=== PATIENT | female | born 1965 | race Caucasian/White ===

== ENCOUNTER 2017-05-29 11:14 | Emergency (ER) | payer MEDICARE, SELFPAY ==
[2017-05-29 11:19] VITALS: BP 141/76; PULSE 73; RESP 16; TEMP 37.1; O2SAT 96; BMI 36.9
[2017-05-29] MEDS: Famotidine 20 MG Tablet 40 MG PO (11:34)
--- NOTE | 2017-05-29 11:36 | ED.DCSUM_ITS ---
- ER Visit Summary Date of Service: 05/29/17 Chief Complaint: Hives History of Present Illness: The patient is a [address] of angioedema requiring intubation ?2 most recent event April 02, 2017. She presents today with hives. She states she has had hives intermittently for 2 years. She has seen a call or contact centre team leader and wallpaperer with no precipitating antigen. She denies any swelling of her lips, tongue or throat. She denies change in her voice or difficulty swallowing or breathing. She has no chest pain, palpitations or difficulty breathing. She denies shortness of breath. She denies swelling of her extremities. She denies nausea, vomiting diarrhea. She has no urologic symptoms. Please read written note. Physical Examination: Vital signs are remarkable for a slight elevation blood pressure 141/76 otherwise unremarkable. She is not hypoxic. Head is atraumatic normocephalic. Pupils are equal round reactive. Extraocular muscles are intact. TMs are pearly white with landmarks noted. Nares patent with no drainage. Posterior pharynx without erythema or exudate. Uvula is midline. There is no dysphonia or dysphasia. Trachea is midline. There is no stridor with auscultation of the neck. Heart is regular without murmur, gallop or rub. S1 and S2 are normal. Lungs are clear to auscultation with good movement of air bilaterally. Abdomen is soft nontender with normal bowel sounds. Patient has generalized hives. Neuro exam is nonfocal. Test Results: No tests were obtained Emergency Department Course and Treatment: Since this is an intermittent problem for 2 years she was treated with Pepcid and prednisone. She has reported allergy to Benadryl and has been told by the wallpaperer not to take Benadryl. Treatment Plan: Plan was to discharge with prescription for Pepcid and prednisone. She believes this made her symptoms worse. There is no evidence on reexamination that her symptoms are worse. Patient states only that helps her hives is to smoke marijuana. She requested a prescription for medical marijuana. She was informed that I do not write for medical marijuana. She then requested a prescription for anxiety medication. I informed her since this is a process and problem that has been going on for 2 years she should follow-up with her doctor. Disposition: Discharged to home in stable condition Impression: Recurrent intermittent hives of unknown etiology This note was generated with Dragon dictation software. It may contain incorrect words, spelling, and punctuation that were not noted in review of the chart prior to signing ED Disposition - Plan for ED Patient: Disposition: Home or Assisted Living Chief Complaint: Rash Instructions: ED Urticaria Referrals: Erika Garcia MD [Primary Care Provider] - 3-5 Days
== END 2017-05-29 13:57 | disposition home or self-care (01) ==
PROVIDERS: Emergency Provider Emergency Medicine; PCP Internal Medicine
DX: L50.8 Other urticaria (principal); I25.10 Atherosclerotic heart disease of native coronary artery without angina pectoris; I25.2 Old myocardial infarction; E66.9 Obesity, unspecified; Z68.36 Body mass index [BMI] 36.0-36.9, adult; F12.980 Cannabis use, unspecified with anxiety disorder; Z72.0 Tobacco use
CPT/HCPCS: 99284

== ENCOUNTER 2017-06-29 20:13 | Emergency (ER) | payer MEDICARE, SELFPAY ==
[2017-06-29 20:15] VITALS: BP 132/83; PULSE 110; RESP 14; TEMP 38; O2SAT 97; BMI 36.9
--- NOTE | 2017-06-29 20:17 | EKG12_ITS ---
Test Reason : CP Blood Pressure : / mmHG Vent. Rate : 111 BPM Atrial Rate : 111 BPM P-R Int : 136 ms QRS Dur : 078 ms QT Int : 328 ms P-R-T Axes : 065 008 071 degrees QTc Int : 446 ms Sinus tachycardia Otherwise normal ECG Confirmed by ARLENE PITT, MARGARETH ([id number]), food editor JOSE MARIE ([id number]) on 07/01/2017 3:42:14 PM Referred By: Confirmed By:MARGARETH JACOBS MD
--- NOTE | 2017-06-29 20:24 | RAD_ITS ---
STUDY: X-RAY CHEST REASON FOR EXAM: Female, 51 years old. CHEST PAIN TECHNIQUE: Single frontal view of the chest. COMPARISON: 04.02.17 FINDINGS: Chronic appearing increased interstitial lung markings. There is no demonstrated pleural abnormality. Enlarged heart size. Normal mediastinum and duncan. Normal visualized pulmonary arteries. There is atherosclerotic calcification of the aortic arch with tortuosity. There are diffuse degenerative changes of the visualized thoracic spine. There is degenerative osteoarthritis of the bilateral shoulders. There is no demonstrated abnormality of the visualized soft tissue structures of the upper abdomen. RAD/Chest 1 View (Portable) IMPRESSION: There are no acute findings. Electronically Signed: Bill Hoang MD at 20:45 EDT , Service support ,
[2017-06-29 20:43] VITALS: O2SAT 100
[2017-06-29 20:45] LABS: Absolute Lymphocyte Count 2.55 X10^3/ul (0.83-4.51); Absolute Neutrophil Count 8.9 X10^3/uL (2.0-7.7); Basophil# 0.02 X10^3/uL; Basophil% 0.2 % (0-1); Eosinophil# 0.23 X10^3/uL; Eosinophils% 1.9 % (0-5); Hematocrit 41.8 % (37-47); Hemoglobin 13.5 g/dl (12.0-15.0); Lymphocyte # 2.55 X10^3/ul (4.0); Lymphocyte % 20.9 % (19-41); Mean Corp Hgb Conc 32.3 g/gl (32-36); Mean Corpuscular Hgb 28.8 pg (27.0-32.0); Mean Corpuscular Volume 89.1 fL (81-99); Mean Platelet Vol. 9.7 fl (6.2-12.0); Monocyte# 0.44 X10^3/uL; Monocyte% 3.6 % (0-10); Neutrophil # 8.89 X10^3/uL (2.7-7.7); Neutrophil % 72.9 % (47-70); Platelet Count 303 K/mm3 (150-450); RBC Distribution Width CV 13.5 % (11.6-14.6); RBC Distribution Width SD 44.2 fl (35.1-43.9); Red Blood Count 4.69 M/mm3 (4.2-5.4); White Blood Count 12.2 K/mm3 (4.4-11.0)
[2017-06-29 20:46] LABS: POSITIVE COUNT NO; POSITIVE DIFFERENTIAL NO; POSITIVE MORPHOLOGY NO
[2017-06-29 21:00] LABS: Bedside Glucose 99 mg/dL (70-110)
[2017-06-29 21:07] LABS: Anion Gap 8 (5-15); BUN 18 mg/dL (7-18); BUN/Creat Ratio 16.2 RATIO (10-20); Calcium,Total 8.8 mg/dL (8.5-10.1); Chloride 107 mmol/L (98-107); Creatinine, Serum 1.11 mg/dL (0.55-1.02); EST Glomerular Filtration Rate 55 mL/min (>60); Est Glom Filt Rate - Afr Amer 66 mL/min (>60); Estimated Creatinine Clearance 52.74 ml/min; Glucose 98 mg/dL (74-106); Sodium Level 139 mmol/L (136-145)
[2017-06-29] MEDS: Ipratropium/Albuterol Sulfate 3 ML AMPUL.NEB INHALATION (21:35)
[2017-06-29 21:36] VITALS: PULSE 90; RESP 18
[2017-06-29] MEDS: Acetaminophen 500 MG Tablet 1000 MG PO (21:49)
[2017-06-29] MEDS: 0.9% Normal Saline 1,000 ML 999 ML IV (21:58)
[2017-06-29 22:15] VITALS: BP 133/84; PULSE 102; RESP 20; O2SAT 98
--- NOTE | 2017-06-29 22:23 | ED.DCSUM_ITS ---
- ER Visit Summary Date of Service: 06/29/17 Chief Complaint: Chest pain History of Present Illness: The patient is a 51 F who presents with chest pain shortness of breath. She states her symptoms began 5 hours ago. She complains of intermittent pinching chest pain in the center of her chest which lasts about 1 second. She denies any nausea vomiting or fevers. She does complain of shortness of breath congestion rhinorrhea and nonproductive cough as well as fatigue. Physical Examination: Initial heart rate 110, temperature 100.4 normal respiratory rate Heart regular rhythm tachycardia Wheezing Abdomen soft Extremities nontender Test Results: EKG shows sinus rhythm at a rate of 111. Laboratory studies notable for white blood cell count 12.2, creatinine 1.11. Troponin negative. Chest x-ray shows no acute process. Emergency Department Course and Treatment: At the time of my reevaluation repeat temperature is 101.0. On repeat vitals are heart rate is significantly improved. She was given a DuoNeb aerosol here with significant improvement of symptoms. On reevaluation she is not hypoxic or tachycardic. She has no focal infiltrate. I do believe she can be treated as an outpatient. She was given prescriptions for prednisone, azithromycin, albuterol inhaler. She is comfortable with this plan and all questions were answered at bedside. Patient discharged. Treatment Plan: [] Disposition: Discharge Impression: Bronchitis This note was generated with [employer] dictation software. It may contain incorrect words, spelling, and punctuation that were not noted in review of the chart prior to signing ED Disposition - Plan for ED Patient: Chief Complaint: Chest Pain Referrals: Care Physician,No Primary [Primary Care Provider] -
--- NOTE | 2017-06-29 22:23 | ED.DEP ---
ED Disposition - Plan for ED Patient: Chief Complaint: Chest Pain Instructions: Acute Bronchitis Prescriptions: Albuterol Inhaler [Ventolin Hfa] 1 - 2 puff INHALATION Q4H PRN PRN #1 inhaler PRN Reason: Wheezing Azithromycin [Zithromax] 250 mg PO DAILY #6 tab Prednisone [Deltasone] 60 mg PO DAILY #15 tab Referrals: Care Physician,No Primary [Primary Care Provider] -
[2017-06-29 22:37] VITALS: BP 133/84; PULSE 95; RESP 18; O2SAT 98
[2017-06-29 23:03] VITALS: BP 133/84; PULSE 98; RESP 18; O2SAT 99
== END 2017-06-29 23:17 | disposition home or self-care (01) ==
LOC: ED 21:20
PROVIDERS: Emergency Provider Emergency Medicine
DX: J40 Bronchitis, not specified as acute or chronic (principal); I25.2 Old myocardial infarction
CPT/HCPCS: 71045; 80048; 82962; 84484; 85025; 93005; 94640; 96360; 99284; J7030; A4216

== ENCOUNTER 2018-03-31 21:57 | Emergency (ER) | payer MEDICARE, SELFPAY ==
[2018-03-31 22:00] VITALS: BP 152/109; PULSE 100; PULSE 108; RESP 17; TEMP 36.7; O2SAT 97; BMI 33.3
[2018-03-31] MEDS: 0.9% Normal Saline 1,000 ML 150 ML IV (23:16)
[2018-03-31] MEDS: MethylPREDNISolone 125 MG/2 ML Vial IV (23:16)
[2018-03-31 23:36] LABS: Absolute Lymphocyte Count 2.69 X10^3/ul (0.83-4.51); Absolute Neutrophil Count 6.4 X10^3/uL (2.0-7.7); Basophil# 0.03 X10^3/uL; Basophil% 0.3 % (0-1); Eosinophil# 0.25 X10^3/uL; Eosinophils% 2.6 % (0-5); Hematocrit 39.2 % (37-47); Hemoglobin 12.7 g/dl (12.0-15.0); Lymphocyte # 2.69 X10^3/ul (4.0); Lymphocyte % 27.5 % (19-41); Mean Corp Hgb Conc 32.4 g/gl (32-36); Mean Corpuscular Hgb 29.6 pg (27.0-32.0); Mean Corpuscular Volume 91.4 fL (81-99); Mean Platelet Vol. 10.4 fl (6.2-12.0); Monocyte# 0.42 X10^3/uL; Monocyte% 4.3 % (0-10); Neutrophil # 6.36 X10^3/uL (2.7-7.7); Neutrophil % 65.1 % (47-70); POSITIVE COUNT NO; POSITIVE DIFFERENTIAL NO; POSITIVE MORPHOLOGY NO; Platelet Count 349 K/mm3 (150-450); RBC Distribution Width CV 13.3 % (11.6-14.6); RBC Distribution Width SD 43.8 fl (35.1-43.9); Red Blood Count 4.29 M/mm3 (4.2-5.4); White Blood Count 9.8 K/mm3 (4.4-11.0)
[2018-03-31 23:45] LABS: Anion Gap 7 (5-15); BUN 13 mg/dL (7-18); BUN/Creat Ratio 8.7 RATIO (10-20); Calcium,Total 8.5 mg/dL (8.5-10.1); Chloride 110 mmol/L (98-107); Creatinine, Serum 1.49 mg/dL (0.55-1.02); EST Glomerular Filtration Rate 39 mL/min (>60); Est Glom Filt Rate - Afr Amer 47 mL/min (>60); Estimated Creatinine Clearance 38.84 ml/min; Glucose 138 mg/dL (74-106); Potassium 3.3 mmol/L (3.5-5.1); Sodium Level 142 mmol/L (136-145)
--- NOTE | 2018-03-31 23:55 | ED.DCSUM_ITS ---
- ER Visit Summary Date of Service: 03/31/18 Chief Complaint: Tongue swelling History of Present Illness: The patient is a 52 F with no primary care physician. Patient has a history of angioedema. She reports that her tongue began swelling approximately 9 hours ago. She reports that it has essentially stayed unchanged throughout the day. She is unsure what caused this. She states that she was cleaning with bleach prior to the onset of this. However, she is done this previously not had this problem. She also reports that she ate turkey and that can and that is 1 of the meats I am not supposed to have. This approximately 3 hours prior to the onset of the swelling. Patient denies any difficulty breathing or chest pain. Patient denies any change in soap, shampoo, laundry detergent, or fabric softener. No new clothing, bedding, carpeting, or pets. No new medications in the past month. Physical Examination: Vitals: Stable. Afebrile. General: Well-nourished and well-developed. Head: Normocephalic atraumatic. HEENT: Mild angioedema of her tongue. She is edentulous. There is no edema of the floor of her mouth. No angioedema of her lips or her pharynx. Neck: Supple, no lymphadenopathy. No JVD. Nontender. Cardiovascular: Regular rate and rhythm. No murmurs. Respiratory: No respiratory distress. Clear to auscultation bilaterally. Abdominal: Soft, nontender, nondistended, normal bowel sounds. No guarding, rebound, or peritoneal signs. Back: Nontender. Extremities: Nontender, no edema. Skin: Normal color, no rash. Neurologic: Alert and oriented ?3. Cranial nerves II through XII are intact. Normal strength and sensation. Psych: Normal affect. Test Results: CBC is normal. Chem-7 is marked potassium 3.3, chloride 110, glucose 138, creatinine 1.49. Emergency Department Course and Treatment: Patient had an IV placed. She reports that she has an allergy to Benadryl. She was given Pepcid and Solu- Medrol IV. She is been observed over the course of 2 hours and reports that her symptoms have improved somewhat. Treatment Plan: Patient feels well and would like to go home. She will be discharged instructions to follow-up with Dr. Yuen in 1-2 days if not i mproving. She will be placed on prednisone and Pepcid at home. Return to the emergency department for any worsening symptoms. Disposition: To home in improved and stable condition. Impression: 1. Angioedema, recurrent. This note was generated with [email or web address] dictation software. It may contain incorrect words, spelling, and punctuation that were not noted in review of the chart prior to signing ED Disposition - Plan for ED Patient: Chief Complaint: Allergic Reaction Instructions: ED Angioedema Prescriptions: predniSONE tablet 60 mg PO DAILY #15 tablet Famotidine [Pepcid] 20 mg PO BID #28 tablet Referrals: Gregory Marin MD [STAFF PHYSICIAN] - 1-2 Days if not improving
[2018-04-01 00:27] VITALS: BP 161/121; PULSE 80; RESP 16; O2SAT 95
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
== END 2018-04-01 00:49 | disposition home or self-care (01) ==
PROVIDERS: Emergency Provider Emergency Medicine
DX: T78.3XXA Angioneurotic edema, initial encounter (principal)
CPT/HCPCS: 80048; 85025; 96361; 96374; 96375; 99285; J7030; A4216; J3490

== ENCOUNTER 2018-05-05 21:19 | Emergency (ER) | payer MEDICARE, SELFPAY ==
[2018-05-05 21:20] VITALS: BP 142/89; PULSE 112; RESP 17; TEMP 36.2; O2SAT 96; BMI 36.8
--- NOTE | 2018-05-05 21:33 | RAD_ITS ---
STUDY: X-RAY - LEFT KNEE REASON FOR EXAM: Female, 52 years old. Pain, fall TECHNIQUE: 4 view(s) of the knee. COMPARISON: None. FINDINGS: Normal visualized distal femur. Normal visualized proximal tibia and fibula. Normal proximal tibiofibular articulation. Minimal spurring at the medial femorotibial compartment. Normal lateral femorotibial compartment. Mild degenerative spurring at the patellofemoral articulation. Mild effusion. The soft tissue structures are unremarkable. RAD/Knee 4 or More Views IMPRESSION: Norm x-ray examination of the knee.ion of the knee. Electronically Signed: Maurisio Smith DO at 22:17 EST Tel [phone], Service support ,
[2018-05-05] MEDS: Acetaminophen 500 MG Tablet 1000 MG PO (21:44)
--- NOTE | 2018-05-05 21:50 | RAD_ITS ---
STUDY: X-RAY - LEFT ANKLE REASON FOR EXAM: Female, 52 years old. Fall, pain TECHNIQUE: 3 view(s) of the ankle. COMPARISON: None. FINDINGS: Normal visualized distal tibia and fibula. Normal medial malleolus. Questionable subtle cortical irregularity involving the tip of the lateral malleolus. Normal tibiotalar articulation and ankle mortise. Normal visualized talus and calcaneus. Plantar calcaneal spurring. The visualized subtalar, talonavicular, calcaneocuboid and tarsal articulations are normal. Mild lateral soft tissue swelling. RAD/Ankle min 3 Views IMPRESSION: Lateral soft tissue swelling of the ankle. Questionable subtle cortical irregularity involving the tip of the lateral malleolus. Electronically Signed: Maurisio Smith DO at 22:52 EST Tel [phone], Service support ,
--- NOTE | 2018-05-05 23:39 | ED.VISSUMM ---
- ER Visit Summary Date of Service: 05/05/18 Chief Complaint: Fall History of Present Illness: The patient is a 52 F who fell earlier today. She slipped on ice and injured her left knee and left ankle. Worse with ambulation. She did not hit her head or neck. She did not lose consciousness. Denies any other injuries or complaints. Physical Examination: Afebrile and vital signs unremarkable. Head and neck are atraumatic. Left knee shows anterior tenderness. Good extension. Good range of motion. No laxity or deformity. Hip unremarkable. Negative logroll. Left ankle shows lateral malleolus swelling and tenderness. Foot nontender. Neurovascular intact distally. Test Results: X-rays of her knee were negative. X-rays of her ankle show a very small cortical irregularity to the tip of the lateral malleolus. Otherwise unremarkable. Emergency Department Course and Treatment: Patient received Tylenol and then Sublimity. Given that she has pain and swelling to her lateral malleolus with a small cortical irregularity, I suspect this is a fracture. I do not believe this has any clinical significance. Patient was advised to rest, ice, elevate. Boot and crutches. She will follow-up with podiatry. She was given a short course of Percocet. Return for any new or worsening issues. Treatment Plan: As above Disposition: Discharge Impression: 1. Left ankle distal fibula fracture 2. Left knee sprain This note was generated with [employer] dictation software. It may contain incorrect words, spelling, and punctuation that were not noted in review of the chart prior to signing ED Disposition - Plan for ED Patient: Chief Complaint: Fall Referrals: Care Physician,No Primary [Primary Care Provider] -
--- NOTE | 2018-05-05 23:43 | ED.DEP ---
ED Disposition - Plan for ED Patient: Chief Complaint: Fall Instructions: ED Fx Ankle Lateral Malleolus Prescriptions: Oxycodone HCl/Acetaminophen [Percocet 5/325] 1 tab PO Q6H PRN PRN 3 Days #12 tab PRN Reason: Pain Referrals: Nicola March DPM [STAFF PHYSICIAN] -
[2018-05-05] MEDS: HYDROcodone Bitartrate/Apap 5/325 Tablet PO (23:54)
[2018-05-05 23:57] VITALS: BP 132/78; PULSE 88; RESP 18; O2SAT 97
--- OUTSIDE RECORDS SUMMARY | 2018-07-10 17:18 | XMS RPT_ITS ---
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 Date:2017-12-13 - [place], [place] [address]Qan: [phone] [id number]: () Name:[address] ()Tel: [phone]: () [phone] 08/11/2017 MICHAEL D [id number] Primary MICHAEL D [place] Insurance:[facility] [place] [facility] [id number] Hospital [address]Rxo: [phone]) Number: Repository [phone] () [id number] Date:[id number] [address]YA: 08/11/2017 Secondary NOT GIVENUNK [place] Insurance:SELF PAY [place] Number: Effective Repository Date:2017-08-11 06/29/2017 MICHAEL D [id number] Primary MICHAEL D [place] Insurance:[facility]: [place] [facility] [id number] Hospital [address]Cwd: [phone] Number: Repository [phone] () [id number] Date:[id number] [address] [address]VI: 06/29/2017 Secondary NOT GIVENUNK [place] Insurance:SELF PAY [place] Number: Effective Repository Date:2017-06-29 05/29/2017 Michael D [id number] Primary Michael D [place] Insurance:[facility] [place]IN [facility] [id number] Hospital [address]Fel: [phone] Number: Repository [phone] () [id number] Date:[id number] [address] [address]DW: 05/29/2017 Secondary NOT GIVENUNK [place] Insurance:SELF PAY [place] Number: Effective Repository Date:2017-05-29
== END 2018-05-05 23:58 | disposition home or self-care (01) ==
LOC: ED 22:09
PROVIDERS: Emergency Provider Emergency Medicine
DX: S82.65XA Nondisplaced fracture of lateral malleolus of left fibula, initial encounter for closed fracture (principal); S83.92XA Sprain of unspecified site of left knee, initial encounter; W00.0XXA Fall on same level due to ice and snow, initial encounter; Y93.9 Activity, unspecified; Y92.9 Unspecified place or not applicable; Z87.891 Personal history of nicotine dependence
CPT/HCPCS: 73564; 73610; 99285

== ENCOUNTER 2018-05-27 18:55 | Emergency (ER) | payer MEDICARE, SELFPAY ==
[2018-05-27 18:57] VITALS: BP 142/82; PULSE 81; RESP 16; TEMP 36.8; O2SAT 97; BMI 37.8
--- NOTE | 2018-05-27 19:24 | EKG12_ITS ---
Test Reason : CP Blood Pressure : / mmHG Vent. Rate : 080 BPM Atrial Rate : 080 BPM P-R Int : 162 ms QRS Dur : 074 ms QT Int : 392 ms P-R-T Axes : 050 -05 010 degrees QTc Int : 452 ms Normal sinus rhythm Normal ECG Confirmed by ARLENE PITT, MARGARETH ([id number]), editorial specialist JOSE MARIE ([id number]) on 05/31/2018 10:40:53 AM Referred By: RADHA Confirmed By:MARGARETH JACOBS MD
--- NOTE | 2018-05-27 19:26 | ED.VISSUMM ---
- ER Visit Summary Date of Service: 05/27/18 Chief Complaint: Chest pain History of Present Illness: The patient is a 52 F 4-day history of persistent midsternal chest pain. No radicular symptoms. Dyspnea. States exertional dyspnea. No cough. No history of RI. Reports that she has history of a weak heart. She was admitted in 2016. She did not follow-up with cardiology. THC history. History of hereditary angioedema. States she did not take any current daily medicines. No current PCP. States post to have a follow with Dr. Early from her admission 2016. No PE risk factors. No family history of MIs young age. Physical Examination: General: Alert and oriented ?3, no acute distress HEENT: Normocephalic, atraumatic. Moist mucosa membranes Neck: supple, nontender. Cardiovascular: Regular rate and rhythm, no murmurs Respiratory: Normal breath sounds, symmetric, no distress Abdomen: Soft, nontender, nondistended Extremities: Nontender, mild lower extremity edema, pulses intact ?4 Neuro: no focal neurological deficits. Test Results: EKG: Sinus rate of 80, no ST or T wave changes. Hemoglobin 12.5. Creatinine 1.06. Troponin less than 0.015. D-dimer 0.62. CTA chest no PE or dissection. Emergency Department Course and Treatment: Patient presents with chest pains constant for 4 days EKG is normal. No aspirin due to her angioedema history and NSAIDs causing this. Troponin returned negative. Symptoms constant for 4 days with a negative troponin less likely cardiac in nature. With pain with deep breath low risk Wells criteria d-dimer obtained elevated subsequent CTA chest obtained negative. SHIRA score 0 heart score is a 2. Discussed with patient will need to follow-up with her PCP for outpatient stress test. All questions were answered. Treatment Plan: [] Disposition: Discharge Impression: Atypical chest pain This note was generated with Cybits dictation software. It may contain incorrect words, spelling, and punctuation that were not noted in review of the chart prior to signing ED Disposition - Plan for ED Patient: Disposition: Home or Assisted Living Diagnosis: Atypical chest pain Instructions: ED Chest Pain Atypical Unkn Cause Referrals: Care Physician,No Primary [Primary Care Provider] - Gokul Yu MD [STAFF PHYSICIAN] - 3-5 Days
[2018-05-27 19:42] LABS: Absolute Lymphocyte Count 3.18 X10^3/ul (0.83-4.51); Absolute Neutrophil Count 7.9 X10^3/uL (2.0-7.7); Basophil# 0.03 X10^3/uL; Basophil% 0.2 % (0-1); Eosinophil# 0.58 X10^3/uL; Eosinophils% 4.8 % (0-5); Hematocrit 39.3 % (37-47); Hemoglobin 12.5 g/dl (12.0-15.0); Lymphocyte # 3.18 X10^3/ul (4.0); Lymphocyte % 26.2 % (19-41); Mean Corp Hgb Conc 31.8 g/gl (32-36); Mean Corpuscular Hgb 29.1 pg (27.0-32.0); Mean Corpuscular Volume 91.4 fL (81-99); Mean Platelet Vol. 10.6 fl (6.2-12.0); Monocyte# 0.38 X10^3/uL; Monocyte% 3.1 % (0-10); Neutrophil # 7.93 X10^3/uL (2.7-7.7); Neutrophil % 65.3 % (47-70); Platelet Count 309 K/mm3 (150-450); RBC Distribution Width CV 13.3 % (11.6-14.6); RBC Distribution Width SD 43.8 fl (35.1-43.9); White Blood Count 12.2 K/mm3 (4.4-11.0)
[2018-05-27 19:46] LABS: POSITIVE COUNT NO; POSITIVE DIFFERENTIAL NO; POSITIVE MORPHOLOGY NO
[2018-05-27 19:59] LABS: International Normalized Ratio 0.9
[2018-05-27 20:00] LABS: Partial Thromboplast Time 30.4 Seconds (24.1-36.2)
[2018-05-27 20:01] LABS: Anion Gap 7 (5-15); BUN 14 mg/dL (7-18); BUN/Creat Ratio 13.2 RATIO (10-20); Chloride 108 mmol/L (98-107); Creatinine, Serum 1.06 mg/dL (0.55-1.02); EST Glomerular Filtration Rate 57 mL/min (>60); Est Glom Filt Rate - Afr Amer 69 mL/min (>60); Glucose 95 mg/dL (74-106); Sodium Level 143 mmol/L (136-145)
[2018-05-27 20:18] LABS: D-Dimer Quantitative (DVT/PE) 0.62 FEU/ug/m (0.27-0.49)
--- NOTE | 2018-05-27 20:19 | ED.RN ---
DR LOPEZ NOTIFIED OF D DIMER RESULTS
--- NOTE | 2018-05-27 20:19 | CT_ITS ---
STUDY: CTA CHEST REASON FOR EXAM: Female, 52 years old. Chest pain, elevated d-dimer. RADIATION DOSAGE (If Supplied By Facility): CTDIvol = ( 16.43 ) mGy, DLP = ( 595.70 ) mGycm TECHNIQUE: The examination was performed with the intravenous administration of 100 ml of Isovue 370 contrast material. Post-processing of the angiographic images was performed, with multiplanar reformation and 3D reconstruction. Individualized dose optimization techniques were used for this CT. COMPARISON: None. FINDINGS: Normal enhancement of the main pulmonary artery and right and left pulmonary arteries. Normal enhancement of the bilateral peripheral pulmonary arteries. There is no demonstrated pulmonary embolism. Normal thoracic aorta and visualized great vessels. There is no demonstrated aortic dissection. Normal heart and pericardium. Normal mediastinum. Normal hilar regions. Normal visualized trachea and bronchi. The lungs are well expanded. Normal pulmonary parenchyma. Normal pleura. Normal chest wall structures. Normal osseous structures. Normal visualized upper abdomen. CT/CTA Chest W/WO Contrast IMPRESSION: No evidence of pulmonary embolism or aortic dissection. No evidence of acute parenchymal process. Electronically Signed: Raffy Bailey DO at 21:09 EST , Service support ,
[2018-05-27] MEDS: Morphine 4 MG/ML Syringe IV (20:59)
[2018-05-27 22:13] VITALS: BP 162/104; PULSE 65; RESP 18; O2SAT 97
== END 2018-05-27 22:15 | disposition home or self-care (01) ==
PROVIDERS: Emergency Provider Emergency Medicine
DX: R07.89 Other chest pain (principal)
CPT/HCPCS: 71275; 80048; 84484; 85025; 85379; 85610; 85730; 93005; 96374; 99284; Q9967; A4216

== ENCOUNTER → 2018-07-15 08:53 | Outpatient (CLI) | payer MEDICARE, SELFPAY ==
[2018-06-10 10:34] VITALS: BMI 37.8
--- NOTE | 2018-07-15 08:56 | ECHOD_ITS ---
Reason For Study: chest pain Procedure This was a 2D Doppler, Color Flow transthoracic echocardiogram. The exam was of adequate technical quality. Exam performed in department. Left Ventricle Normal LV size. Left ventricular systolic function is normal. The estimated ejection fraction is 55 %. No evidence for diastolic dysfunction. No regional wall motion abnormalities noted. Right Ventricle Normal RV size. Normal systolic function. Atria The left atrium is mildly enlarged. Normal right atrium. No doppler evidence for ASD. Mitral Valve There is no mitral annular calcification. Normal mitral valve. Trivial mitral valve insufficiency. Tricuspid Valve Normal tricuspid valve. Trivial tricuspid valve insufficiency. Right ventricular systolic pressure estimated to be 30 mmHg. Aortic Valve Trisinus/trileaflet aortic valve. Normal aortic valve. Pulmonic Valve The pulmonic valve is not well visualized. Great Vessels Normal sized aortic root. Pericardium/Pleural No pericardial effusion. MMode/2D Measurements & Calculations LVIDd: 4.0 cm IVSd: 1.0 cm Ao root diam: 2.8 cm LVIDs: 2.8 cm LVPWd: 1.1 cm RVDd: 3.7 cm FS: 31.7 % LAV(MOD-bp): 62.1 ml LA A4 area: 21.1 cm2 LA dimension(2D): 3.8 cm LAV(MOD-bp) Indexed: 30.0 ml/m2 LAV(MOD-sp2): 57.7 ml LAV(MOD-sp4): 63.0 ml RA A4 area: 15.2 cm2 Time Measurements MV dec time: 0.23 sec Doppler Measurements & Calculations MV E max baldo: 92.7 cm/sec Lat Peak E' Baldo: 9.7 cm/sec Med Peak E' Baldo: 6.8 cm/sec MV A max baldo: 83.1 cm/sec E/E' lat: 9.5 E/E' med: 13.7 MV E/A: 1.1 Ao V2 max: 151.5 cm/sec LV V1 max: 117.9 cm/sec PA V2 max: 121.4 cm/sec Ao max P.2 mmHg LV V1 max P.6 mmHg TR max baldo: 256.4 cm/sec TR max P.5 mmHg Interpretation Summary Left ventricular systolic function is normal. The estimated ejection fraction is 55 %. The left atrium is mildly enlarged. Trivial mitral valve insufficiency. Trivial tricuspid valve insufficiency. Right ventricular systolic pressure estimated to be 30 mmHg. No evidence for diastolic dysfunction. Ordering Physician: Michael Early Referring Physician: NO PCP Performed By: Janette Pemberton, CHIARA, RVT
== END ==
PROVIDERS: Referring Provider Internal Medicine Cardiovascular Disease; Visit Provider Internal Medicine Cardiovascular Disease
DX: R07.9 Chest pain, unspecified (principal)
CPT/HCPCS: 93306

== ENCOUNTER 2018-08-09 22:06 | Emergency (ER) | payer MEDICARE, SELFPAY ==
[2018-06-10 10:34] VITALS: BMI 37.8
[2018-08-09 22:07] VITALS: BP 154/92; PULSE 91; RESP 16; TEMP 36.8; O2SAT 97; BMI 36.6
--- NOTE | 2018-08-09 22:40 | ED.DCSUM_ITS ---
History of Present Illness Chief Complaint: Lower Extremity Injury Informant: Patient Occurred: Weeks - Recent fall, 1 week ago and initial injury fall of last year Mechanism/Context: Injury, Fall Current Severity: Mild Maximum Severity: Severe Worsened by: Movement and weightbearing Relieved by: Nothing Associated Symptoms: - - Difficulty ambulating and moving.. Negative for: Parasthesia, Weakness, Loss of Funtion Narrative: Patient is a middle-aged woman who presents with left knee pain. She injured her left knee last year. She had a fall 1 week ago. Had a twisting mechanism injury and states she landed on her knee. She is on no anticoagulant. She denies paresthesia, anesthesia motors. She has no other complaint. Tetanus Immunization: 5-10 years Prior similar symptoms: Yes Recent Illness/Hospitalization: No - Past Medical History (1) Left ventricular systolic dysfunction Status: Acute (2) Angioedema Status: Acute (3) Hypothyroidism Status: Chronic (4) Obesity (BMI 30-39.9) Status: Chronic (5) Non-STEMI (non-ST elevated myocardial infarction) Status: Acute Past Medical History - Allergies and Home Meds Allergies/Adverse Reactions: Allergies diphenhydramine [From Benadryl] Allergy (Verified 06/10/18 10:19) Unknown NSAIDS (Non-Steroidal Anti-Inflamma Allergy (Verified 06/10/18 10:19) Angioedema Primary Care Physician: Care Physician,No Primary [Primary Care Provider] - Prior records reviewed: Yes Surgical History: - Lives: Alone Smoking Status: Current some day smoker Alcohol: None - Family History Maternal Family History: Family History (Last Reviewed 06/10/18 @ 10:24 by Sherrell Lees) Father CAD (coronary artery disease) Myocardial infarction CVA (cerebral vascular accident) Grandfather CAD (coronary artery disease) History of coronary artery bypass surgery Uncle Myocardial infarction, Onset Age: 40 Uncle Myocardial infarction, Onset Age: 50 Mother CVA (cerebral vascular accident) Sister CVA (cerebral vascular accident) Family History: Reports: Unknown Review of Systems Cardiovascular: Denies: Chest pain, Palpitations, Heart racing Respiratory: Denies: Dyspnea, Sputum, Dyspnea on exertion, Orthopnea, Paroxysmal nocturnal dyspnea Gastrointestinal: Denies: Abdominal pain, Nausea, Vomiting, Diarrhea Musculoskeletal: Reports: Extremity Pain - Left knee pain. Denies: Myalgias, Arthralgias, Neck pain, Back pain, Swelling Skin: Denies: Rash, Wounds Neurological: Denies: Weakness, Parasthesia, Numbness Hematologic: Denies: Easy bruising, Easy bleeding Allergy: Denies: Uticaria, Swelling of the mouth Physical Exam Vital Signs/Narrative: Vital Signs Temp Pulse Resp BP Pulse Ox 08/09/18 22:07 98.2 F 91 16 154/92 H 97 Inital Vital Signs reviewed: Yes - Extremity Exam Left Hip: Negative for: Abrasion, Contusion, Deformity, Edema, Hematoma, Limited ROM, - Left Femur: Negative for: Abrasion, Contusion, Deformity, Edema, Hematoma, Limited ROM, - Left Knee: Limited ROM - Able to extend 170 degrees and flex to 100 degrees. The patella is not ballotable. There is an effusion. There is no laxity with varus valgus stress testing; however, she does report pain. Carlos's test is negative. There is a click and pain laterally, modified Cedric test. There is pain in the popliteal fossa with no fullness or palpable mass.. Negative for: Abrasion, Contusion, Deformity, Edema, Hematoma Left Tib Fib: Negative for: Abrasion, Contusion, Deformity, Edema, Hematoma, Limited ROM, - Left Foot: Negative for: Abrasion, Contusion, Deformity, Edema, Hematoma, Limited ROM, - General: Well nourished, Well developed, Obese, Unkempt Head: Normocephalic, Atraumatic Eyes: Perrl, EOMI. Negative for: Pale conjunctiva, Scleral icterus Cardiovascular: Regular rate, Regular rhythm, No murmurs, Normal S1, Normal S2 Respiratory: No distress, CTA bilaterally, Chest nontender Skin: Normal color, No rash, No Trauma. Negative for: Cyanosis Neurological: Alert, Oriented x3, Cranial nerves II-XII grossly intact, Normal Strength, Normal Sensation. Negative for: Normal Gait Psychological: Normal affect Diagnostic/Tx/Re-eval Chest X-Ray - ED: Read by ED Physician 4 view x-ray of the left knee was obtained which reveals a small effusion. There is no fracture, subluxation or dislocation per my read. - Medical Decision Making With history of recent fall, effusion and positive modified Cedric's test concern for lateral meniscus injury. X-ray was obtained to evaluate for fracture since there is history of direct trauma. He did with opiate analgesia since she has angioedema to Naprosyn. Patient has seen Dr. Mary Polanco in the past for prior injury. Will refer since there is concern for lateral meniscus injury. ED Disposition - Plan for ED Patient: Disposition: Home or Assisted Living Diagnosis: Acute lateral meniscus tear of left knee Instructions: ED Meniscal Injury Knee Poss Prescriptions: Hydrocodone Bitart/Apap 5-325 [Quartzsite 5MG-325MG] 1 tab PO Q6H PRN PRN 3 Days #10 tab PRN Reason: Pain Referrals: Care Physician,No Primary [Primary Care Provider] - Nikki Polanco DO [STAFF PHYSICIAN] - 5-7 Days
--- NOTE | 2018-08-09 22:45 | RAD_ITS ---
STUDY: X-RAY - LEFT KNEE REASON FOR EXAM: Female, 52 years old. Knee pain and swelling. TECHNIQUE: 4 view(s) of the knee. COMPARISON: None. FINDINGS: Normal visualized distal femur. Normal visualized proximal tibia and fibula. Normal proximal tibiofibular articulation. There is no demonstrated fracture. There is [id number] degenerative arthrosis of the medial femorotibial compartment. Normal lateral femorotibial compartment. There is mild degenerative arthrosis of the patellofemoral articulation. There is a soft tissue prominence in the suprapatellar region suggesting a small volume joint effusion. The soft tissue structures are unremarkable. RAD/Knee 4 or More Views IMPRESSION: Degenerative changes. No acute fracture or dislocation. Probable small effusion. Electronically Signed: Gilles Tavarez MD at 23:01 EDT , Service support ,
[2018-08-09] MEDS: HYDROcodone Bitartrate/Apap 5/325 Tablet PO (23:53)
[2018-08-09 23:55] VITALS: BP 148/88; PULSE 73; RESP 16; O2SAT 98
== END 2018-08-09 23:55 | disposition home or self-care (01) ==
PROVIDERS: Emergency Provider Emergency Medicine
DX: S83.282A Other tear of lateral meniscus, current injury, left knee, initial encounter (principal); W19.XXXA Unspecified fall, initial encounter; Y93.9 Activity, unspecified; Y92.9 Unspecified place or not applicable; E66.9 Obesity, unspecified; Z68.36 Body mass index [BMI] 36.0-36.9, adult; F17.200 Nicotine dependence, unspecified, uncomplicated
CPT/HCPCS: 73564; 99284

== ENCOUNTER 2018-08-22 12:07 | Emergency (ER) | payer MEDICARE, SELFPAY ==
[2018-08-22 12:08] VITALS: BP 126/73; PULSE 88; RESP 19; TEMP 36.2; O2SAT 97; BMI 37.0
[2018-08-22] MEDS: Lidocaine/Epi/Tetracaine 50 ML 1 APPLIC TOPICAL (12:30)
--- NOTE | 2018-08-22 12:30 | ED.VISSUMM ---
- ER Visit Summary Date of Service: 08/22/18 Chief Complaint: Mid ~right lower back pain while folding laundry Also abscess or spider bite left lower leg History of Present Illness: The patient is a 52 F no seen past medical or surgical history. Denies any prior back surgery. An hour ago was michelle daniel developed right lateral back pain. No radiation. No numbness or weakness in her legs. No dysuria. No hematuria. No fever. No abdominal pain. No prior back surgery. No recent fall or trauma. Patient also states last several days she has had an abscess or spider bite left lower leg. Also has one on her right lower abdomen and right medial thigh. Physical Examination: Well-appearing middle-aged female. No acute distress. Vital signs stable. Afebrile. She does not look septic or toxic. No distress. H EENT exam unremarkable. Neck nontender. Lungs clear to auscultation bilaterally. Heart regular rhythm no murmur. Abdomen soft nontender normal bowel sounds no peritoneal signs. Remedies moving all 4. Neurovascular intact. Normal 5 out of 5 transformer mechanic strength to the upper extremities. Normal dorsi plantarflexion lower extremities. Negative straight leg raise. Bilaterally. Back her spine is nontender in both the cervical, thoracic lumbar spine. She has mild paraspinal soft tissue tenderness on the right consistent with myofascial strain and spasm. No ecchymosis or bruising. No redness or warmth. No CVA tenderness. Skin she has a very small superficial subcu abscess on her left mid lower leg. This will need to be drained. There is no surrounding cellulitis. No lymphangitic streaking. She also has 2 similar lesions on her right medial thigh and right lower abdomen but these do not need to be drained. There is no fluctuance. No fluid collection. No cellulitis. They both appear to be very superficial but do not need to be drained nor do I see any pus. Neurologic exam is normal. No cauda equina. No saddle anesthesia. Normal motor strength both upper and lower extremities. Test Results: None Emergency Department Course and Treatment: Back pain to be treated with Motrin. Let will be applied to the left lower leg superficial abscess. I will open up with an 11 blade. She will be started on both Bactrim and Keflex for 10 days. I made a small less than 1 cm vertical incision in the left lower leg small superficial abscess was able to drain about a cc of pus. Patient tolerated procedure well. She will be given her first dose of Keflex and Bactrim while in the ER. Treatment Plan: Bactrim twice daily Keflex 4 times daily for 10 days. Warm compresses to the superficial abscesses. Motrin for her back pain. Disposition: Discharge Impression: Back spasm Left lower leg superficial abscess I&D by ER This note was generated with Horsealot dictation software. It may contain incorrect words, spelling, and punctuation that were not noted in review of the chart prior to signing ED Disposition - Plan for ED Patient: Disposition: Home or Assisted Living Instructions: ED Abscess IandD, ED Spasm Back No Trauma Prescriptions: Cephalexin [Keflex] 500 mg PO Q6 10 Days cap Smz/Tmp Ds [Bactrim Ds] 1 tab PO BID #20 tab Referrals: Aurelio Cordova MD [NON-STAFF] - 3-5 Days if not improving Additional Instructions: Left lower leg abscess. Warm compresses to that right thigh right lower abdomen. Take both antibiotics of Keflex and Bactrim for the next 10 days and finished them. Tylenol for your back pain is musculoskeletal. Hot shower, warm bath and massage. Follow-up with your doctor if not improving.
--- NOTE | 2018-08-22 12:34 | ED.DEP ---
ED Disposition - Plan for ED Patient: Disposition: Home or Assisted Living Instructions: ED Abscess IandD, ED Spasm Back No Trauma Prescriptions: Cephalexin [Keflex] 500 mg PO Q6 10 Days cap Smz/Tmp Ds [Bactrim Ds] 1 tab PO BID #20 tab Referrals: Aurelio Cordova MD [NON-STAFF] - 3-5 Days if not improving Additional Instructions: Left lower leg abscess. Warm compresses to that right thigh right lower abdomen. Take both antibiotics of Keflex and Bactrim for the next 10 days and finished them. Tylenol for your back pain is musculoskeletal. Hot shower, warm bath and massage. Follow-up with your doctor if not improving.
[2018-08-22] MEDS: HYDROcodone Bitartrate/Apap 5/325 Tablet PO (12:39)
[2018-08-22] MEDS: Smz/Tmp Ds Tablet 1 TABLET PO (13:06)
[2018-08-22] MEDS: Cephalexin 250 MG Capsule 500 MG PO (13:06)
== END 2018-08-22 13:11 | disposition home or self-care (01) ==
PROVIDERS: Emergency Provider Emergency Medicine
DX: L02.416 Cutaneous abscess of left lower limb (principal); M62.830 Muscle spasm of back
CPT/HCPCS: 10060; 99285

== ENCOUNTER 2018-11-17 19:57 | Emergency (ER) | payer MEDICARE, SELFPAY ==
[2018-11-17 19:58] VITALS: BP 138/76; BP 138/79; PULSE 77; PULSE 79; RESP 18; RESP 20; TEMP 37.1; O2SAT 97; BMI 39.9
--- NOTE | 2018-11-17 20:54 | RAD_ITS ---
STUDY: X-RAY - LEFT KNEE REASON FOR EXAM: Female, 53 years old. Knee pain TECHNIQUE: 4 view(s) of the knee. COMPARISON: 08/09/2018 FINDINGS: There is stable narrowing of the medial joint space compartment with osteophyte formation. There are patellofemoral osteophytes unchanged. There is a stable moderate-sized suprapatellar effusion. There are no acute fractures. RAD/Knee 4 or More Views IMPRESSION: Stable osteoarthrosis of the left knee Stable moderate size suprapatellar effusion No acute fractures Electronically Signed: Sascha Leon, at 21:31 EDT Tel , Service support ,
--- NOTE | 2018-11-17 21:08 | RAD_ITS ---
STUDY: X-RAY - RIGHT KNEE REASON FOR EXAM: Female, 53 years old. Knee pain TECHNIQUE: 4 view(s) of the knee. COMPARISON: None. FINDINGS: There is narrowing of the medial joint space compartment with osteophyte formation. There is mild soft tissue edema. There is likely chondrocalcinosis within the lateral compartment. There is patellofemoral osteoarthrosis. There is patellofemoral joint space narrowing. There are articular and osteochondral defects within the patella and the adjacent femur.. There are no acute fractures. There is a moderate suprapatellar effusion. RAD/Knee 4 or More Views IMPRESSION: Tricompartmental osteoarthrosis most significant within the patellofemoral and medial compartments Soft tissue edema Moderate suprapatellar effusion Electronically Signed: Sascha Leon, at 21:40 EDT Tel , Service support ,
--- NOTE | 2018-11-17 21:43 | ED.DCSUM_ITS ---
- ER Visit Summary Date of Service: 11/17/18 Chief Complaint: Bilateral knee pain History of Present Illness: The patient is a 53 F who presents with bilateral knee pain that began this morning. Patient states she was sitting on a chair when it folded and she fell onto her knees. Patient landed directly onto the anterior aspect of her knees. Patient describes the pain as throbbing. Patient states the pain is worse with bending her knees. Patient denies any paresthesias or weakness. Patient denies any head injury or loss of consciousness. Patient denies any other injuries. Physical Examination: Vital signs are stable. Patient is afebrile. Patient is in no acute distress. Musculoskeletal exam reveals tenderness with mild edema and ecchymosis over the knees bilaterally, worse on the left. There is no bony crepitance or step-off. There is no effusion. Range of motion was limited in all motions of the knees bilaterally secondary to pain. Extensor mechanism is intact bilaterally. There is no deformity noted. Pedal pulses are equal bilateral. There is no calf tenderness noted. Test Results: X-rays of the knees were obtained bilaterally. There is no acute fracture. There are some degenerative changes. These were interpreted by parish aldana and the radiologist. Emergency Department Course and Treatment: Patient was instructed to ice and elevate the knees. Patient was instructed to take Tylenol or ibuprofen as needed for pain. Patient was instructed to follow-up with her primary care physician in 5 to 7 days. Patient understood and was agreeable with plan. All questions were answered. Disposition: Discharge home Impression: Bilateral knee contusions This note was generated with [employer]Spring dictation software. It may contain incorrect words, spelling, and punctuation that were not noted in review of the chart prior to signing ED Disposition - Plan for ED Patient: Disposition: Home or Assisted Living Diagnosis: Contusion of knee, left, Contusion of knee, right Instructions: CONTUSION, Lower Extremity Referrals: Care Physician,No Primary [Primary Care Provider] - Aurelio Cordova MD [NON-STAFF] - 5-7 Days
[2018-11-17 22:51] VITALS: BP 136/60; PULSE 75; RESP 18; O2SAT 98
== END 2018-11-17 22:51 | disposition home or self-care (01) ==
PROVIDERS: Emergency Provider Emergency Medicine
DX: S80.02XA Contusion of left knee, initial encounter (principal); S80.01XA Contusion of right knee, initial encounter; W07.XXXA Fall from chair, initial encounter; Y93.89 Activity, other specified; Y92.9 Unspecified place or not applicable; E66.9 Obesity, unspecified; Z68.39 Body mass index [BMI] 39.0-39.9, adult
CPT/HCPCS: 73564; 99282

== ENCOUNTER 2019-06-13 23:12 | Emergency (ER) | payer MEDICARE, SELFPAY ==
[2019-06-13 23:13] VITALS: PULSE 92; RESP 18; TEMP 37.7; O2SAT 97; BMI 41.5
[2019-06-13 23:20] VITALS: BP 128/109
--- NOTE | 2019-06-13 23:27 | ED.VIS.GEN ---
History of Present Illness Chief Complaint: Edema Informant: Patient Narrative: Patient stated she feels like her tongue has been mildly swollen for the last 2 hours. Nothing that she can think of provoked it. She takes no medications. She has a history of angioedema in the past. Current severity is mild. Denies any rashes elsewhere. No swelling to her lips. Denies any difficulty breathing. She stated she had to be intubated for angioedema many years ago. She stated they have never figured out what provokes this. Able to swallow normally. Able to talk normally. - Past Medical History (1) Abnormal cardiac enzyme level Status: Acute (2) Angioedema Status: Acute (3) Left ventricular systolic dysfunction Status: Acute (4) Non-STEMI (non-ST elevated myocardial infarction) Status: Acute (5) Bradycardia Status: Chronic (6) Hypothyroidism Status: Chronic (7) Obesity (BMI 30-39.9) Status: Chronic Past Medical History - Allergies and Home Meds Allergies/Adverse Reactions: Allergies diphenhydramine [From Benadryl] Allergy (Verified 11/17/18 19:58) Unknown NSAIDS (Non-Steroidal Anti-Inflamma Allergy (Verified 11/17/18 19:58) Angioedema Primary Care Physician: Reese Zamora DO [NON CLINICAL AFFILIATE] - Prior records reviewed: Yes Past Medical History: - - See problem list Surgical History: - - Reviewed Smoking Status: Former smoker Alcohol: None Drugs: None - Family History Maternal Family History: Family History (Last Reviewed 06/10/18 @ 10:24 by Sherrell Lees) Father CAD (coronary artery disease) Myocardial infarction CVA (cerebral vascular accident) Grandfather CAD (coronary artery disease) History of coronary artery bypass surgery Uncle Myocardial infarction, Onset Age: 40 Uncle Myocardial infarction, Onset Age: 50 Mother CVA (cerebral vascular accident) Sister CVA (cerebral vascular accident) Family History: Reports: Unknown Review of Systems General: Denies: Chills, Fever, Sweats Eyes: Denies: Visual changes - bilaterally, Diplopia ENT: Reports: - - see HPI. Denies: Rhinorrhea, Sore throat Cardiovascular: Denies: Chest pain, Palpitations Respiratory: Denies: Dyspnea, Cough, Dyspnea on exertion Gastrointestinal: Denies: Abdominal pain, Nausea, Vomiting, Diarrhea, Melena, Hematochezia Genitourinary: Denies: Dysuria, Hematuria, Frequency Musculoskeletal: Denies: Back pain, Extremity Pain Skin: Denies: Rash, Wounds Neurological: Denies: Headache, Weakness, Numbness Physical Exam Vital Signs/Narrative: Vital Signs Temp Pulse Resp BP Pulse Ox 06/13/19 23:20 128/109 H 06/13/19 23:13 99.8 F H 92 18 97 General: Well nourished, Well developed, No Acute Distress Head: Normocephalic, Atraumatic Eyes: Perrl, EOMI ENT: Moist mucous membranes, No rhinorrhea, - - Lips oropharynx and tongue to me appear normal. I do not appreciate any swelling. Patient is tolerating secretions well. Normal swallow. Neck: Supple, Nontender Cardiovascular: Regular rate, Regular rhythm, No murmurs Respiratory: No distress, CTA bilaterally, Chest nontender Abdomen: Soft, Nontender, Nondistended, Normal bowel sounds Back: Nontender, Normal Inspection Extremities: Nontender, No edema Skin: Normal color, No rash Neurological: Alert, Oriented x3, Cranial nerves II-XII grossly intact, Normal Strength, Normal Sensation Psychological: Normal affect, Normal Mood Diagnostic/Tx/Re-eval - Medical Decision Making Patient has subjective sense of her tongue being swelling. Given Pepcid and Solu-Medrol. Allergic to Benadryl. Observed in the emergency department. On reevaluation the patient remained stable and feels mildly better. Ambulates to the bathroom without difficulty. Tolerating secretions. On reevaluation at 1:19 AM I do not appreciate any tongue swelling. I feel the patient can be discharged. She will be given prednisone and Pepcid for home as she has had this in the past. She will follow-up ED Disposition - Plan for ED Patient: Disposition: Home or Assisted Living Diagnosis: Angioedema Instructions: ED Angioedema Prescriptions: Famotidine [Pepcid] 20 mg PO BID #28 tab Prescription Printed predniSONE tablet 60 mg PO DAILY #15 tab Prescription Printed Referrals: Reese Zamora DO [NON CLINICAL AFFILIATE] -
[2019-06-13] MEDS: MethylPREDNISolone 125 MG/2 ML Vial IV (23:34)
[2019-06-14 00:56] VITALS: BP 123/101
[2019-06-14 01:29] VITALS: BP 123/80; PULSE 86; RESP 18; O2SAT 98
== END 2019-06-14 01:30 | disposition home or self-care (01) ==
PROVIDERS: Emergency Provider Emergency Medicine
DX: T78.3XXA Angioneurotic edema, initial encounter (principal); I25.2 Old myocardial infarction; E66.9 Obesity, unspecified; Z68.41 Body mass index [BMI] 40.0-44.9, adult; Z87.891 Personal history of nicotine dependence
CPT/HCPCS: 96374; 99284; A4216

== ENCOUNTER → 2020-05-29 15:40 | Outpatient (CLI) | payer MEDICARE, MEDICAID, SELFPAY ==
[2020-05-29 16:38] LABS: Absolute Lymphocyte Count 2.97 X10^3/uL (0.83-4.51); Absolute Neutrophil Count 6.1 X10^3/uL (2.0-7.7); Basophil# 0.05 X10^3/uL; Basophil% 0.5 % (0-1); Eosinophil# 0.22 X10^3/uL; Eosinophils% 2.2 % (0-5); Hematocrit 42.1 % (37-47); Lymphocyte # 2.97 X10^3/ul (4.0); Lymphocyte % 30.2 % (19-41); Mean Corp Hgb Conc 30.9 g/dL (32-36); Mean Corpuscular Hgb 28.2 pg (27.0-32.0); Mean Corpuscular Volume 91.3 fL (81-99); Mean Platelet Vol. 10.6 fl (6.2-12.0); Monocyte# 0.46 X10^3/uL; Monocyte% 4.7 % (0-10); NRBC Flagged by Analyzer 0 % (0-5); Neutrophil # 6.08 X10^3/uL (2.7-7.7); Neutrophil % 61.7 % (47-70); Platelet Count 365 K/mm3 (150-450); RBC Distribution Width CV 13.2 % (11.6-14.6); RBC Distribution Width SD 44.5 fl (35.1-43.9); Red Blood Count 4.61 M/mm3 (4.2-5.4); White Blood Count 9.9 K/mm3 (4.4-11.0)
[2020-05-29 17:26] LABS: Anion Gap 4 (5-15); BUN 16 mg/dL (7-18); BUN/Creat Ratio 12.3 RATIO (10-20); Calcium,Total 9.4 mg/dL (8.5-10.1); Chloride 106 mmol/L (98-107); EST Glomerular Filtration Rate 45 mL/min (>60); Est Glom Filt Rate - Afr Amer 54 mL/min (>60); Glucose 82 mg/dL (74-106); Potassium 3.6 mmol/L (3.5-5.1); Sodium Level 141 mmol/L (136-145); Thyroid Stim Hormone (TSH) 1.49 uIU/mL (0.358-3.74)
== END ==
DX: R03.0 Elevated blood-pressure reading, without diagnosis of hypertension (principal); E03.9 Hypothyroidism, unspecified; M25.572 Pain in left ankle and joints of left foot
CPT/HCPCS: 36415; 80048; 84443; 84550; 85025

== ENCOUNTER 2020-08-31 18:42 | Emergency (ER) | payer MEDICARE, MEDICAID, SELFPAY ==
[2020-08-31 18:43] VITALS: BP 159/101; PULSE 83; RESP 18; TEMP 36.6; O2SAT 97; BMI 41.6
[2020-08-31] MEDS: MethylPREDNISolone 125 MG/2 ML Vial IV (18:52)
--- NOTE | 2020-08-31 18:55 | EDS_ITS ---
HPI History of Present Illness Chief Complaint: Edema Informant: patient Narrative Narrative: Patient presents with mild tongue swelling. Started yesterday and maintained throughout the day today. She tells me she has a history of angioedema and has had multiple times where her tongue swells. She takes no daily medications because of this. She has not taken anything home to help with the swelling. She states that she has a familial history of angioedema. She was seen here in July 2019 and had similar symptoms. She denies any trouble speaking. No shortness of breath. She denies any rashes anywhere. [facility] Medical History (Updated 08/31/20 @ 19:[address] Will Dennis MD) Abnormal cardiac enzyme level Angioedema Bradycardia Hypothyroidism Left ventricular systolic dysfunction Marijuana smoker Non-STEMI (non-ST elevated myocardial infarction) Obesity (BMI 30-39.9) Home Medications famotidine 20 mg PO BID #28 tab 06/14/19 [Rx Last Taken Unknown] prednisone 60 mg PO DAILY #15 tab 06/14/19 [Rx Last Taken Unknown] prednisone 60 mg PO DAILY #12 tablet 08/31/20 [Rx Last Taken Unknown] Allergy/AdvReac Type Severity Reaction Status Date / Time diphenhydramine Allergy Unknown Verified 08/31/20 18:45 [From Benadryl] NSAIDS (Non-Steroidal Allergy Angioedema Verified 08/31/20 18:45 Anti-Inflamma Family History Father CAD (coronary artery disease) Myocardial infarction CVA (cerebral vascular accident) Grandfather CAD (coronary artery disease) History of coronary artery bypass surgery Uncle Myocardial infarction, Onset Age: 40 Uncle Myocardial infarction, Onset Age: 50 Mother CVA (cerebral vascular accident) Sister CVA (cerebral vascular accident) Surgical History History of left heart catheterization (~04/03/17) Social History Smoking Status: Never smoker alcohol intake: never substance use type: marijuana ROS ROS ED Constitutional Constitutional ED: Denies chills or fever(s) Eyes Eyes: Denies blurry vision, change in vision, diplopia or loss of vision ENT ENT ED: Reports other Details: Tongue swelling Cardiovascular Cardiovascular: Denies chest pain, palpitations or racing heartbeat Respiratory/Chest Respiratory/Chest: Denies cough, dyspnea, dyspnea on exertion or sputum Gastrointestinal Gastrointestinal: Denies abdominal pain, diarrhea, nausea or vomiting Genitourinary Genitourinary ED: Denies dysuria, hematuria or urinary frequency Musculoskeletal Musculoskeletal: Denies back pain, myalgias or neck pain Integumentary Denies abscess or rash Neurologic Neurologic: Denies headache(s) or weakness Psychiatric Psychiatric: Denies anxiety or depression Endocrine Endocrinology: Denies polydipsia or polyuria Hematologic/Lymphatic Hematologic/Lymphatic: Denies easy bleeding or easy bruising Allergic/Immunologic Allergic/Immunologic ED: Denies urticaria EXAM Physical Exam Const Vital Signs: 08/31/20 18:43 Temperature 97.9 F Temperature Source Temporal Pulse Rate 83 Respiratory Rate 18 Blood Pressure 159/101 H Blood Pressure Mean 120 Pulse Ox 97 Oxygen Delivery Method Room Air Positive well nourished and well developed General Appearance ED: well developed and NAD HEENT Reports normocephalic and head/scalp atraumatic HEENT Narrative: The tongue is mildly swollen. Is not affecting her phonation. Her uvula is midline without swelling. Her face is not swollen. normocephalic and atraumatic; Negative for tenderness Eyes PERRL and EOMs intact bilaterally General Eye ED: Negative for scleral icterus Neck supple and no JVD Chest Wall palpation of chest normal Chest: Negative for tenderness Resp normal respiratory effort and clear to auscultation bilaterally Effort and Inspection: Negative for respiratory distress Cardio regular rate and regular rhythm; Negative for no murmurs GI soft to palpation, non-tender and non-distended Palpation: soft Back/Spine no CVA tenderness and no thoracic nor lumbar tenderness Cervical Spine: Negative for cervical spine tenderness Extremity normal to inspection General Extremety ED: Negative for tenderness Neuro oriented x3, CN's II-XII intact bilaterally and no sensory deficits noted Sensorium / Orientation: awake and alert Motor Exam: strength 5/5 throughout Psych mental status grossly normal Skin no rashes or lesions noted MDM MDM MDM Narrative Medical decision making narrative: She was given Solu-Medrol and Pepcid. Upon reevaluation at 1999 the patient feels much better. Her tongue appears to be improved but it comes to the swelling. At this point I feel the patient be discharged with prednisone to take at home. She will call her PCP for follow-up Discharge Plan Triage Chief Complaint: Edema ED Provider: Will Dennis Dx/Rx/DC Orders Clinical Impression: Angioedema Instructions: ED Angioedema Prescriptions: New prednisone 20 MG tablet 60 mg PO DAILY Qty: 12 RF: 0 No Action prednisone 20 MG tablet 60 mg PO DAILY Qty: 15 RF: 0 famotidine 20 MG tablet 20 mg PO BID Qty: 28 RF: 0 Primary Care Provider: Care Physician,No Primary Referrals: Care Physician,No Primary [Primary Care Provider] - Disposition Disposition: Home, self care
[2020-08-31] MEDS: Famotidine 200 MG/20 ML MDV 20 MG in 0.9% Normal Saline (Pres. free 8 ML 300 MG IV (18:58)
[2020-08-31 20:24] VITALS: BP 162/82; PULSE 82; O2SAT 96
== END 2020-08-31 20:25 | disposition home or self-care (01) ==
PROVIDERS: Emergency Provider Emergency Medicine
DX: T78.3XXA Angioneurotic edema, initial encounter (principal); E03.9 Hypothyroidism, unspecified; F12.90 Cannabis use, unspecified, uncomplicated; I25.2 Old myocardial infarction; Z79.1 Long term (current) use of non-steroidal anti-inflammatories (NSAID); Z79.52 Long term (current) use of systemic steroids
CPT/HCPCS: 96374; 99284; A4216; J3490

== ENCOUNTER 2021-02-25 18:37 | Emergency (ER) | payer MEDICARE, MEDICAID, SELFPAY ==
[2021-02-25 18:38] VITALS: BP 137/95; PULSE 94; RESP 18; TEMP 35.1; O2SAT 96; BMI 33.3
--- NOTE | 2021-02-25 18:41 | RAD_ITS ---
STUDY: X-RAY - LEFT SHOULDER REASON FOR EXAM: Female, 55 years old. PAIN TECHNIQUE: 4 view(s) of the shoulder. COMPARISON: None. FINDINGS: There is mild degenerative arthrosis of the glenohumeral articulation. There is degenerative arthrosis of the acromioclavicular joint without inferior osseous spur formation. Normal acromion. Normal humeral head and visualized proximal humerus. The soft tissue structures are unremarkable. Normal visualized pulmonary apex. RAD/Shoulder min 2 Views IMPRESSION: Degenerative arthrosis Electronically Signed: Michael Marinelli MD at 19:32 EST , Service support ,
[2021-02-25 21:24] VITALS: BP 137/100; PULSE 79; RESP 18; O2SAT 96
--- NOTE | 2021-02-25 22:12 | EX.ED.UPPERE ---
HPI History of Present Illness HPI Narrative: Patient presents with pain in her left shoulder and wrist that has been getting worse over the past couple days. Patient denies any trauma or injury. Patient describes her pain is sharp and shooting. Patient states it is worse with movement. Patient admits to some tingling in her fingers. Patient denies any weakness. Patient does admit to some pain in her neck and the left upper back. Patient denies any chest pain or shortness of breath. Chief Complaint: Upper Extremity Injury Informant: patient Onset/Context/Timing Onset: Yesterday Context: Gradual Onset Timing: Continuous Quality of Pain: Sharp Worsened by: Movement Relieved by: Rest Associated Symptoms Associated Symptoms: Positive for Parasthesia; Negative for Weakness [facility] Medical History (Updated 02/25/21 @ 22:[address] Percy Tay DO) Abnormal cardiac enzyme level Angioedema Bradycardia Hypothyroidism Left ventricular systolic dysfunction Marijuana smoker Non-STEMI (non-ST elevated myocardial infarction) Obesity (BMI 30-39.9) Home Medications hydrocodone-acetaminophen 1 tab PO Q6H PRN PRN 3 Days #10 tablet 02/25/21 [Rx Last Taken Unknown] Allergy/AdvReac Type Severity Reaction Status Date / Time diphenhydramine Allergy Unknown Verified 02/25/21 21:23 [From Benadryl] NSAIDS (Non-Steroidal Allergy Angioedema Verified 02/25/21 21:23 Anti-Inflamma Family History Father CAD (coronary artery disease) Myocardial infarction CVA (cerebral vascular accident) Grandfather CAD (coronary artery disease) History of coronary artery bypass surgery Uncle Myocardial infarction, Onset Age: 40 Uncle Myocardial infarction, Onset Age: 50 Mother CVA (cerebral vascular accident) Sister CVA (cerebral vascular accident) Surgical History History of left heart catheterization (~04/03/17) Social History Smoking Status: Never smoker alcohol intake: never substance use type: marijuana ROS ROS ED Constitutional Constitutional ED: Denies chills or fever(s) Eyes Eyes: Denies blurry vision or change in vision ENT ENT ED: Denies rhinorrhea or sore throat Cardiovascular Cardiovascular: Denies chest pain or palpitations Respiratory/Chest Respiratory/Chest: Denies cough or dyspnea Gastrointestinal Gastrointestinal: Denies nausea or vomiting Genitourinary Genitourinary ED: Denies dysuria or hematuria Musculoskeletal Musculoskeletal: Reports back pain and neck pain Integumentary Denies abscess or rash Neurologic Neurologic: Denies headache(s) or weakness Allergic/Immunologic Allergic/Immunologic ED: Denies mouth swelling or urticaria EXAM Physical Exam Const Vital Signs: 02/25/21 18:38 02/25/21 21:24 Temperature 95.1 F L Temperature Source Temporal Pulse Rate 94 79 Respiratory Rate 18 18 Blood Pressure 137/95 H 137/100 H Blood Pressure Mean 109 112 Pulse Ox 96 96 Oxygen Delivery Method Room Air Room Air Positive well nourished, well developed and obese General Appearance ED: well developed Nutritional Appearance: obese HEENT Reports moist mucous membranes Neck supple Extremity Extremity Narrative: There is tenderness over the left wrist and left shoulder. There is no edema or ecchymosis. There is no bony crepitance or step-off. There is no deformity noted. There is no erythema or warmth. Range of motion was limited in all motions of the left wrist and left shoulder secondary to pain. There is good range of motion of the left elbow. Radial pulses are equal bilateral. Sensation was intact to light touch in the radial, median, and ulnar areas. Strength is 5/5 in the radial, median, and ulnar areas. Neuro oriented x3, CN's II-XII intact bilaterally, moves all extremities, no focal motor deficits and no sensory deficits noted Sensorium / Orientation: alert Psych mental status grossly normal MDM MDM MDM Narrative Medical decision making narrative: X-rays of the left shoulder were obtained. There are 4 views. On my interpretation, there is no acute fracture dislocation. There are some mild degenerative changes noted. Radiologist also interpreted the x-rays and agrees. Patient was advised of her findings. Patient was advised that this may be an inflammatory reaction. Patient was given a prescription for short course of [place] since she is allergic to NSAIDs and they cause angioedema. Patient was instructed use ice to the area. Patient was instructed to follow-up with her primary care physician in 3-5 days. Patient understood and was agreeable with the plan. All questions were answered. Radiography Diagnostic Testing: Clinical Impression(s) from Imaging Studies Shoulder X-Ray 02/25/21 18:41 IMPRESSION: Degenerative arthrosis Electronically Signed: Michael Marinelli MD at 19:32 EST , Service support , Discharge Plan Triage Chief Complaint: Upper Extremity Injury ED Provider: Percy Tay Dx/Rx/DC Orders Clinical Impression: Muscle strain of left shoulder region Instructions: ED Shoulder Sprain Prescriptions: New hydrocodone-acetaminophen [hydrocodone-acetaminophen] 1 TABLET tablet 1 tab PO Q6H PRN PRN (Reason: Pain) 3 Days Qty: 10 RF: 0 Primary Care Provider: Care Physician,No Primary Referrals: Michael Thompson MD [STAFF PHYSICIAN] - 3-5 Days Care Physician,No Primary [Primary Care Provider] - Disposition Disposition: Home, Self Care
== END 2021-02-25 22:25 | disposition home or self-care (01) ==
PROVIDERS: Emergency Provider Emergency Medicine
DX: S46.912A Strain of unspecified muscle, fascia and tendon at shoulder and upper arm level, left arm, initial encounter (principal); E66.9 Obesity, unspecified; F12.10 Cannabis abuse, uncomplicated; I25.2 Old myocardial infarction; X58.XXXA Exposure to other specified factors, initial encounter
CPT/HCPCS: 73030; 99282

== ENCOUNTER 2021-06-23 03:58 | Emergency (ER) | payer MEDICARE, MEDICAID, SELFPAY ==
[2021-06-23 04:13] VITALS: BP 147/85; PULSE 93; RESP 16; TEMP 37.1; O2SAT 94; BMI 44.4
--- NOTE | 2021-06-23 04:13 | EX.ED.DYSGE1 ---
HPI History of Present Illness Chief Complaint: Edema Informant: patient and EMS Onset/Context/Timing Onset: Hours (5) Context: Gradual Onset Timing: Continuous Quality: Feels swollen and odynophagia Location: Throat more on left side Current Severity: Mild Maximum Severity: Mild Worsened by: Swallowing Relieved by: Nothing Associated Symptoms Associated Symptoms: None Narrative Narrative: Patient has a history of life-threatening angioedema to the point of being intubated and admitted to the ICU in the past. She provides a fairly confusing history about her past saying anything will cause it suggesting that she does not know what her triggers are for it. She states that around 5 hours prior to calling EMS, she was cleaning things in her house around 10-11 PM, and during that she started having discomfort in her throat. It is not necessarily progressed but it has not improved. She states she had a couple of beers before it started, and afterwards she smoked a joint to see if that would help and it did not, telling us this simultaneous with the fact that she is also allergic to smoke. She denies any dyspnea/wheezing, chest discomfort, peripheral edema, lightheadedness or near syncope, or inability to swallow. She states in fact when she does, it is sore in her throat to do so. No recent fevers or other illness. No new medications. [facility] Medical History (Updated 06/23/21 @ 06:[address] Dong Granados MD) Abnormal cardiac enzyme level Angioedema Bradycardia Hypothyroidism Left ventricular systolic dysfunction Marijuana smoker Non-STEMI (non-ST elevated myocardial infarction) Obesity (BMI 30-39.9) Home Medications prednisone 40 mg PO DAILY 3 Days #6 tablet 06/23/21 [Rx Last Taken Unknown] Allergy/AdvReac Type Severity Reaction Status Date / Time diphenhydramine Allergy Unknown Verified 06/23/21 04:11 [From Benadryl] NSAIDS (Non-Steroidal Allergy Angioedema Verified 06/23/21 04:11 Anti-Inflamma Family History Father CAD (coronary artery disease) Myocardial infarction CVA (cerebral vascular accident) Grandfather CAD (coronary artery disease) History of coronary artery bypass surgery Uncle Myocardial infarction, Onset Age: 40 Uncle Myocardial infarction, Onset Age: 50 Mother CVA (cerebral vascular accident) Sister CVA (cerebral vascular accident) Surgical History History of left heart catheterization (~04/03/17) Social History Smoking Status: Never smoker alcohol intake: never substance use type: marijuana ROS ROS ED Constitutional Constitutional ED: Denies chills or fever(s) Eyes Eyes: Denies change in vision or diplopia ENT ENT ED: Reports as per HPI, sore throat and throat swelling; Denies rhinorrhea Cardiovascular Cardiovascular: Denies chest pain or palpitations Respiratory/Chest Respiratory/Chest: Denies cough or dyspnea Gastrointestinal Gastrointestinal: Denies abdominal pain, diarrhea, nausea or vomiting Genitourinary Genitourinary ED: Denies dysuria or hematuria Musculoskeletal Musculoskeletal: Denies back pain or neck pain Integumentary Denies abscess or rash Neurologic Neurologic: Denies headache(s), paresthesias or weakness Psychiatric Psychiatric: Denies anxiety or suicidal thoughts EXAM Physical Exam Const Vital Signs: 06/23/21 04:13 06/23/21 04:26 06/23/21 06:17 Temperature 98.7 F Temperature Source Oral Pulse Rate 93 97 Respiratory Rate 16 16 Respiratory Effort Normal Respiratory Pattern Normal Blood Pressure 147/85 H 148/88 H Blood Pressure Mean 105 108 Pulse Ox 94 98 Oxygen Delivery Method Room Air Room Air Positive well nourished, well developed and obese Constitutional Narrative: Well-appearing. Conversive in full sentences without any difficulty, dyspnea, or hoarseness/stridor. General Appearance ED: well developed and NAD Nutritional Appearance: obese HEENT Reports moist mucous membranes HEENT Narrative: Edentulous. Posterior oropharynx unremarkable. No tongue edema, lip edema, tonsillar asymmetry or abscess, and no exudates. normocephalic and atraumatic Mouth ED: Yes lips normal, Yes tongue normal and No trismus Mouth: lips normal, tongue normal and No trismus Eyes PERRL and EOMs intact bilaterally Neck full ROM, no lymphadenopathy, supple and no meningeal signs Resp normal respiratory effort and clear to auscultation bilaterally Cardio regular rate, regular rhythm and no murmurs Rate: Negative for tachycardic GI non-tender and non-distended Auscultation: normoactive bowel sounds Palpation: soft Back/Spine no CVA tenderness General Back: other FROM Extremity normal to inspection General Extremety ED: Negative for edema, pulses abnormal or tenderness General Extremity: Negative for edema or pulses abnormal Neuro oriented x3, CN's II-XII intact bilaterally and no sensory deficits noted Sensorium / Orientation: awake and alert Motor Exam: strength 5/5 throughout Skin no rashes or lesions noted and no wounds MDM MDM MDM Narrative Medical decision making narrative: Patient initially wanted to get up and signed out AGAINST MEDICAL ADVICE because I was not doing anything. I advised her that since she clearly is in no life-threatening situation right now, I simply was taking advantage of the opportunity to gather information about her. I offered to place an IV and treat the possibility of angioedema here although she does not have any objective evidence of it right now, and I was going to give her Pepcid, Benadryl, Solu-Medrol. She states that she cannot take Benadryl at all and she is afraid that she might from it. She states it is on her allergy list but she has no idea why. On her allergy list, it says unknown as to why it is on her list. She has never had benztropine or hydroxyzine that she can remember. I gave her small IV dose of benztropine in addition to Pepcid and Solu-Medrol and she was monitored. Also ran a rapid strep test given the symptoms. It was negative and a culture was sent. She was observed for 2.5 hours. She said she felt a little better. She does not have any objective tongue edema that I can see and she is breathing normally, speaking to me while lying supine. I feel comfortable letting her go home, I will give her a prescription for several days of prednisone, and I advised her that certainly in the differential here is viral pharyngitis. She is comfortable with this plan. We discussed reasons to return. Discharge Plan Triage Chief Complaint: Edema ED Provider: Dong Granados Dx/Rx/DC Orders Clinical Impression: Sensation of swollen throat Instructions: ED Angioedema Prescriptions: New prednisone 20 MG tablet 40 mg PO DAILY 3 Days Qty: 6 RF: 0 Primary Care Provider: Care Physician,No Primary Referrals: Care Physician,No Primary [Primary Care Provider] - Doctor,Your [STAFF PHYSICIAN] - 3-5 Days if not improving Disposition Disposition: Home, Self Care
[2021-06-23] MEDS: MethylPREDNISolone 125 MG/2 ML Vial IV (05:06)
[2021-06-23] MEDS: Famotidine 200 MG/20 ML MDV 20 MG in 0.9% Normal Saline (Pres. free 8 ML 300 MG IV (05:08)
[2021-06-23 06:17] VITALS: BP 148/88; PULSE 97; RESP 16; O2SAT 98
[2021-06-23 06:35] VITALS: BP 148/88; PULSE 84; RESP 16
== END 2021-06-23 06:36 | disposition home or self-care (01) ==
PROVIDERS: Emergency Provider Emergency Medicine; Visit Provider Emergency Medicine
DX: R60.9 Edema, unspecified (principal); F12.90 Cannabis use, unspecified, uncomplicated; I25.2 Old myocardial infarction; Z53.29 Procedure and treatment not carried out because of patient's decision for other reasons
CPT/HCPCS: 87880; 96374; 96375; 99285; A4216; J3490

== ENCOUNTER 2021-10-13 16:06 | Emergency (ER) | payer MEDICARE, MEDICAID, SELFPAY ==
[2021-10-13 16:07] VITALS: BP 160/104; PULSE 84; RESP 14; TEMP 36.1; O2SAT 96; BMI 43.2
--- NOTE | 2021-10-13 16:41 | EX.ED.UPPERE ---
HPI History of Present Illness Chief Complaint: Upper Extremity Injury Informant: patient Occured/Mechanism Mechanism/Context: Yes fall Onset/Context/Timing Onset: Weeks Context: Gradual Onset Current Severity: Severe Maximum Severity: Severe Narrative Narrative: Patient presents secondary left shoulder pain. She reports tripping and falling 2 weeks ago and hitting her left shoulder. She is had increasing pain in her left shoulder since that time, especially worse over the past 2 days. She is been taking Tylenol and ibuprofen at home without improvement. She has tried topical cortisone cream and [place] without improvement. [facility] Medical History (Updated 10/13/21 @ 17:[address] Argelia Sy MD) Abnormal cardiac enzyme level Angioedema Bradycardia Hypothyroidism Left ventricular systolic dysfunction Marijuana smoker Non-STEMI (non-ST elevated myocardial infarction) Obesity (BMI 30-39.9) Home Medications prednisone 20 mg tablet 40 mg PO DAILY 3 days #6 TABLETS 06/23/21 [Rx Last Taken Unknown] hydrocodone-acetaminophen 5-325mg 5mg-325mg 1 tab PO Q6H PRN pain 3 days #10 tabs 10/13/21 [Rx Last Taken Unknown] Allergy/AdvReac Type Severity Reaction Status Date / Time diphenhydramine Allergy Unknown Verified 10/13/21 16:09 [From Benadryl] NSAIDS (Non-Steroidal Allergy Angioedema Verified 10/13/21 16:09 Anti-Inflamma Family History Father CAD (coronary artery disease) Myocardial infarction CVA (cerebral vascular accident) Grandfather CAD (coronary artery disease) History of coronary artery bypass surgery Uncle Myocardial infarction, Onset Age: 40 Uncle Myocardial infarction, Onset Age: 50 Mother CVA (cerebral vascular accident) Sister CVA (cerebral vascular accident) Surgical History History of left heart catheterization (~04/03/17) Social History Smoking Status: Never smoker alcohol intake: never substance use type: marijuana ROS ROS ED Constitutional Constitutional ED: Denies chills or fever(s) Eyes Eyes: Denies change in vision or discharge from eye(s) ENT ENT ED: Denies discharge from eye(s), rhinorrhea or sore throat Cardiovascular Cardiovascular: Denies chest pain or palpitations Respiratory/Chest Respiratory/Chest: Denies cough or dyspnea Gastrointestinal Gastrointestinal: Denies abdominal pain, nausea or vomiting Genitourinary Genitourinary ED: Denies dysuria Musculoskeletal Musculoskeletal: Reports extremity pain; Denies back pain Integumentary Denies Abrasions or rash Neurologic Neurologic: Denies headache(s) Psychiatric Psychiatric: Reports anxiety Allergic/Immunologic Allergic/Immunologic ED: Denies lip swelling or urticaria EXAM Physical Exam Const Vital Signs: 10/13/21 16:07 Temperature 97.0 F L Temperature Source Temporal Pulse Rate 84 Respiratory Rate 14 Blood Pressure 160/104 H Blood Pressure Mean 122 Pulse Ox 96 Oxygen Delivery Method Room Air Positive well nourished and well developed General Appearance ED: well developed HEENT Reports normocephalic and head/scalp atraumatic Eyes PERRL and EOMs intact bilaterally Neck supple Chest Wall inspection of chest normal and palpation of chest normal Resp normal respiratory effort and clear to auscultation bilaterally Cardio regular rate and regular rhythm GI normal to inspection, nondistended, normoactive bowel sounds Palpation: soft Extremity normal to inspection Extremity Narrative: Diffuse tenderness to palpation throughout the left shoulder region. No overlying skin change. No evidence of dislocation. Strong distal pulses. No tenderness at the wrist or elbow. Neuro oriented x3 and no sensory deficits noted Neuro Narrative: Decreased range of motion at left shoulder secondary to pain. Sensorium / Orientation: alert Psych mental status grossly normal Skin no rashes or lesions noted MDM MDM MDM Narrative Medical decision making narrative: Patient does have allergy listed to NSAIDs which cause angioedema. In light of this she is given a dose of [place]. Left shoulder x-rays obtained. Radiography Diagnostic Testing: Radiology Impression Shoulder X-Ray 10/13/21 16:58 IMPRESSION: 1. No acute fracture or dislocation. 2. 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 Arthritic changes are noted. Radiology interpretation is reviewed and agrees. Patient be given a short course of [place] for pain control. She will be referred to orthopedics for follow-up. Discharge Plan Triage Chief Complaint: Upper Extremity Injury ED Provider: Argelia Sy Dx/Rx/DC Orders Clinical Impression: Contusion of left shoulder Instructions: ED Shoulder Sprain, ED Shoulder Contusion Prescriptions: New hydrocodone-acetaminophen 5-325 mg tablet 1 tab PO Q6H PRN (Reason: pain) 3 Days Qty: 10 0RF No Action prednisone 20 MG tablet 40 mg PO DAILY 3 Days Qty: 6 0RF Primary Care Provider: Care Physician,No Primary Referrals: Abhishek Childers MD [STAFF PHYSICIAN] - 1 Week Care Physician,No Primary [Primary Care Provider] - Disposition Disposition: Home, Self Care
[2021-10-13] MEDS: HYDROcodone Bitartrate/Apap 5/325 Tablet PO (16:50)
--- NOTE | 2021-10-13 16:58 | RAD_ITS ---
STUDY: X-RAY - LEFT SHOULDER REASON FOR EXAM: Female, 55 years old. pain TECHNIQUE: 3 view(s) of the shoulder. COMPARISON: 02/25/2021 FINDINGS: Normal glenohumeral articulation. There is hypertrophic osteoarthrosis of the acromioclavicular joint with inferior osseous spur formation. Normal acromion. Normal humeral head and visualized proximal humerus. The soft tissue structures are unremarkable. Normal visualized pulmonary apex. RAD/Shoulder min 2 Views IMPRESSION: 1. No acute fracture or dislocation. 2. 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
== END 2021-10-13 17:48 | disposition home or self-care (01) ==
PROVIDERS: Emergency Provider Emergency Medicine; Visit Provider Emergency Medicine
DX: S40.012A Contusion of left shoulder, initial encounter (principal); F12.90 Cannabis use, unspecified, uncomplicated; I25.2 Old myocardial infarction; W19.XXXA Unspecified fall, initial encounter
CPT/HCPCS: 73030; 99283

== ENCOUNTER 2022-03-03 13:59 | Emergency (ER) | payer MEDICARE, MEDICAID, SELFPAY ==
[2022-03-03 14:11] VITALS: BP 140/90; PULSE 79; RESP 18; TEMP 37.6; O2SAT 96; BMI 43.9
--- NOTE | 2022-03-03 15:10 | RAD_ITS ---
STUDY: X-RAY CHEST REASON FOR EXAM: Female, 56 years old. covid -- in ed hallway . Nausea and vomiting. Fever. TECHNIQUE: PA and lateral views of the chest. COMPARISON: Comparison is made with prior study dated 06/29/2017. FINDINGS: The lungs are clear and expanded. There is no demonstrated pleural abnormality. Normal size heart. Normal mediastinum and duncan. Normal visualized pulmonary arteries. Normal visualized aortic arch and descending thoracic aorta. Normal visualized thoracic spine. Normal visualized ribs, clavicles, and shoulders. There is no demonstrated abnormality of the visualized soft tissue structures of the upper abdomen. RAD/Chest PA and Lateral IMPRESSION: Normal x-ray examination of the chest. Electronically Signed: Pastor Napoles MD at 15:30 EST ,
--- NOTE | 2022-03-03 16:29 | EX.ED.DYSGE1 ---
HPI History of Present Illness Chief Complaint: Nausea/Vomiting Informant: patient Narrative Narrative: Patient started early this morning with myalgias, headache, subjective fever, nausea and some vomiting. Bowel habits were a little soft but not actual diarrhea. No abdominal pain. She really is not having coughing to any great degree. She states she occasionally clears her throat. Minimal with sore throat. No sputum production. Evidently her boyfriend had similar symptoms that lasted for about 4 days recently. The person who drives him to work was sick recently. There is evidently family member who had a 4-month-old with COVID recently. She states all these people had COVID but she does not think she has it. She is currently on no medications. She has no medical chronic history. [facility] Medical History (Updated 03/03/22 @ 16:[address] Rome Perez MD) Abnormal cardiac enzyme level Angioedema Bradycardia Hypothyroidism Left ventricular systolic dysfunction Marijuana smoker Non-STEMI (non-ST elevated myocardial infarction) Obesity (BMI 30-39.9) Home Medications prednisone 20 mg tablet 40 mg PO DAILY 3 days #6 TABLETS 06/23/21 [Rx Last Taken Unknown] hydrocodone-acetaminophen 5-325mg 5mg-325mg 1 tab PO Q6H PRN pain 3 days #10 tabs 10/13/21 [Rx Last Taken Unknown] ondansetron 4 mg disintegrating tablet 4 mg PO Q8H PRN nausea and vomiting #10 tabs 03/03/22 [Rx Last Taken Unknown] Allergy/AdvReac Type Severity Reaction Status Date / Time diphenhydramine Allergy Unknown Verified 03/03/22 14:14 [From Benadryl] NSAIDS (Non-Steroidal Allergy Angioedema Verified 03/03/22 14:14 Anti-Inflamma Family History Father CAD (coronary artery disease) Myocardial infarction CVA (cerebral vascular accident) Grandfather CAD (coronary artery disease) History of coronary artery bypass surgery Uncle Myocardial infarction, Onset Age: 40 Uncle Myocardial infarction, Onset Age: 50 Mother CVA (cerebral vascular accident) Sister CVA (cerebral vascular accident) Surgical History History of left heart catheterization (~04/03/17) Social History Smoking Status: Never smoker alcohol intake: never substance use type: marijuana ROS ROS ED Constitutional Constitutional ED: Reports chills and subjective Eyes Eyes: Denies blurry vision, change in vision or diplopia ENT ENT ED: Reports rhinorrhea Cardiovascular Cardiovascular: Denies chest pain or palpitations Respiratory/Chest Respiratory/Chest: Denies dyspnea Gastrointestinal Gastrointestinal: Reports diarrhea, nausea and vomiting; Denies abdominal pain Genitourinary Genitourinary ED: Denies dysuria or hematuria Musculoskeletal Musculoskeletal: Reports myalgias Integumentary Denies abscess or rash Neurologic Neurologic: Reports headache(s) Endocrine Endocrinology: Denies polydipsia or polyuria Hematologic/Lymphatic Hematologic/Lymphatic: Denies easy bleeding or easy bruising Allergic/Immunologic Allergic/Immunologic ED: Denies urticaria EXAM Physical Exam Const Vital Signs: 03/03/22 14:11 Temperature 99.6 F H Temperature Source Temporal Pulse Rate 79 Respiratory Rate 18 Blood Pressure 140/90 H Blood Pressure Mean 106 Pulse Ox 96 Oxygen Delivery Method Room Air Positive well nourished and well developed General Appearance ED: well developed and NAD HEENT Reports moist mucous membranes Eyes EOMs intact bilaterally Neck no JVD Chest Wall inspection of chest normal Resp normal respiratory effort and clear to auscultation bilaterally Cardio regular rate, regular rhythm and no murmurs GI normal to inspection, nondistended, normoactive bowel sounds and non-tender Back/Spine no CVA tenderness Extremity General Extremety ED: Negative for tenderness Neuro Sensorium / Orientation: alert Psych mental status grossly normal Skin no rashes or lesions noted MDM MDM MDM Narrative Medical decision making narrative: GustPatient's x-ray shows no acute process. She is positive for COVID. This is consistent with her symptoms. She denies any medical problems or medications. The option of adding medicine for COVID but she would prefer not to and I think this is reasonable. I will write for some Zofran as the primary complaint that brought her in was the nausea and vomiting. We discussed reasons to return and expected course. Radiography Diagnostic Testing: Clinical Impression(s) from Imaging Studies Chest X-Ray 03/03/22 15:10 IMPRESSION: Normal x-ray examination of the chest. Electronically Signed: Pastor Napoles MD at 15:30 EST , Discharge Plan Triage Chief Complaint: Nausea/Vomiting ED Provider: Rome Perez Dx/Rx/DC Orders Clinical Impression: COVID Instructions: Coronavirus Disease 2019 (COVID-19): Caring for Yourself or Others, ED Vomiting (Adult) Prescriptions: New ondansetron 4 mg tablet,disintegrating 4 mg PO Q8H PRN (Reason: nausea and vomiting) Qty: 10 0RF No Action prednisone 20 MG tablet 40 mg PO DAILY 3 Days Qty: 6 0RF hydrocodone-acetaminophen 5-325 mg tablet 1 tab PO Q6H PRN (Reason: pain) 3 Days Qty: 10 0RF Primary Care Provider: Care Physician,No Primary Referrals: Annita Fuentes MD [Med Staff - Patient Access Manager] - 1 Week if not improving Care Physician,No Primary [Primary Care Provider] - Disposition Disposition: Home, Self Care
[2022-03-03] MEDS: Ondansetron ODT 4 MG Tablet PO (16:57)
== END 2022-03-03 17:02 | disposition home or self-care (01) ==
PROVIDERS: Emergency Provider Emergency Medicine; Visit Provider Emergency Medicine
DX: U07.1 COVID-19 (principal); F12.90 Cannabis use, unspecified, uncomplicated; I25.2 Old myocardial infarction
CPT/HCPCS: 71046; 87811; 99284

== ENCOUNTER 2022-10-24 14:35 | Emergency (ER) | payer MEDICARE, MEDICAID, SELFPAY ==
[2022-10-24 14:35] VITALS: BP 124/82; PULSE 91; RESP 18; TEMP 35.8; O2SAT 96; BMI 40.6
--- NOTE | 2022-10-24 14:49 | EDS_ITS ---
HPI History of Present Illness HPI Narrative: Patient presents with left hip pain that began 2 weeks ago. Patient states she fell proximately 3 feet at that time. Patient states she landed on her left hip. Patient states her pain is getting progressively worse. Patient states her pain is burning. Patient states it is worse with movement. Patient states she has been taking extra strength Tylenol which has been helping. Patient denies any paresthesias or weakness. Patient denies any head injury or loss of consciousness. Patient denies any other injuries. Chief Complaint: Lower Extremity Injury Informant: patient Occured/Mechanism Mechanism/Context: Yes fall Onset/Context/Timing Onset: Weeks (2) Context: Sudden Onset Timing: Continuous Quality of Pain: Burning Location: Left hip Worsened by: Movement, weightbearing Relieved by: Tylenol Associated Symptoms Associated Symptoms: Negative for Parasthesia, Weakness or Loss of Funtion [facility] Medical History (Updated 10/24/22 @ 15:[address] Percy Tay DO) Abnormal cardiac enzyme level Angioedema Bradycardia Hypothyroidism Left ventricular systolic dysfunction Marijuana smoker Non-STEMI (non-ST elevated myocardial infarction) Obesity (BMI 30-39.9) Home Medications prednisone 20 mg tablet 40 mg (2 x 20 mg) PO DAILY 3 days #6 TABLETS 06/23/21 [Rx Last Taken Unknown] ondansetron 4 mg disintegrating tablet 4 mg PO Q8H PRN nausea and vomiting #10 tabs 03/03/22 [Rx Last Taken Unknown] hydrocodone-acetaminophen 5-325mg 5mg-325mg 1 tab PO Q6H PRN pain 3 days #10 tabs 10/24/22 [Rx Last Taken Unknown] Allergy/AdvReac Type Severity Reaction Status Date / Time diphenhydramine Allergy Unknown Verified 03/03/22 14:14 [From Benadryl] NSAIDS (Non-Steroidal Allergy Angioedema Verified 03/03/22 14:14 Anti-Inflamma Family History Father CAD (coronary artery disease) Myocardial infarction CVA (cerebral vascular accident) Grandfather CAD (coronary artery disease) History of coronary artery bypass surgery Uncle Myocardial infarction, Onset Age: 40 Uncle Myocardial infarction, Onset Age: 50 Mother CVA (cerebral vascular accident) Sister CVA (cerebral vascular accident) Surgical History History of left heart catheterization (~04/03/17) Social History Smoking Status: Never smoker alcohol intake: never substance use type: marijuana ROS ROS ED Constitutional Constitutional ED: Denies chills or fever(s) Eyes Eyes: Denies blurry vision or change in vision ENT ENT ED: Denies rhinorrhea or sore throat Cardiovascular Cardiovascular: Denies chest pain or palpitations Respiratory/Chest Respiratory/Chest: Denies cough or dyspnea Gastrointestinal Gastrointestinal: Denies nausea or vomiting Genitourinary Genitourinary ED: Denies dysuria or hematuria Musculoskeletal Musculoskeletal: Denies back pain or neck pain Integumentary Denies abscess or rash Neurologic Neurologic: Denies headache(s) or weakness Allergic/Immunologic Allergic/Immunologic ED: Denies mouth swelling or urticaria EXAM Physical Exam Const Vital Signs: 10/24/22 14:35 Temperature 96.5 F L Temperature Source Temporal Pulse Rate 91 Respiratory Rate 18 Blood Pressure 124/82 H Blood Pressure Mean 96 Pulse Ox 96 Positive well nourished, well developed and obese General Appearance ED: well developed and NAD Nutritional Appearance: obese HEENT Reports moist mucous membranes Neck full ROM and supple Extremity Extremity Narrative: There is tenderness over the anterior and lateral aspects of the left hip. There is no obvious deformity noted. Range of motion was slightly limited in all motions of the left hip secondary to pain. There is mild pain with internal and external rotation. Pedal pulses are equal bilaterally. Sensation was intact to light touch bilaterally in the lower extremities. Strength is 5/5 bilaterally in the lower extremities. Neuro oriented x3, CN's II-XII intact bilaterally, moves all extremities and no sensory deficits noted Sensorium / Orientation: alert Motor Exam: strength 5/5 throughout Psych mental status grossly normal MDM MDM MDM Narrative Medical decision making narrative: Differential diagnosis includes pelvic fracture, hip fracture, contusion, and sprain. X-rays of the left hip and pelvis will be obtained to assess for fracture. Radiography Diagnostic Testing: Clinical Impression(s) from Imaging Studies Hip/Pelvis X-Ray 10/24/22 15:07 IMPRESSION: Normal x-ray examination of the pelvis and hip. Electronically Signed: Pastor Napoles MD at 15:21 EDT , X-rays of the left hip were obtained. There are 3 views. On my independent interpretation, there is no acute fracture or dislocation. Radiologist also interpreted the x-rays and agrees. Treatment and Re-Evaluation Narrative: Patient was given a dose of York here. Patient is feeling better on reevaluation. Patient was advised of her findings. Patient was given a prescription for a short course of York. Patient was instructed to use ice to the area. Patient was instructed to follow-up with her primary care physician in 5 to 7 days. Patient understood and was agreeable with the plan. All questions were answered. Discharge Plan Triage Chief Complaint: Lower Extremity Injury ED Provider: Percy Tay Dx/Rx/DC Orders Clinical Impression: Fall, Contusion of left hip, initial encounter Instructions: ED Hip Contusion Prescriptions: Continued hydrocodone-acetaminophen 5-325 mg tablet 1 tab PO Q6H PRN (Reason: pain) 3 Days Qty: 10 0RF No Action prednisone 20 MG tablet 40 mg PO DAILY 3 Days Qty: 6 0RF ondansetron 4 mg tablet,disintegrating 4 mg PO Q8H PRN (Reason: nausea and vomiting) Qty: 10 0RF Primary Care Provider: Care Physician,No Primary Referrals: Percy Hinojosa MD [Med Staff - Incident Response Consultant] - 5-7 Days Care Physician,No Primary [Primary Care Provider] - Disposition Disposition: Home, Self Care
[2022-10-24] MEDS: HYDROcodone Bitartrate/Apap 5/325 Tablet PO (14:59)
--- NOTE | 2022-10-24 15:07 | RAD_ITS ---
STUDY: X-RAY - PELVIS AND LEFT HIP REASON FOR EXAM: Female, 56 years old. Left hip pain following a recent fall. TECHNIQUE: 3 views of the pelvis and hip. COMPARISON: None. FINDINGS: There is a non-specific bowel gas pattern. Normal visualized soft tissue structures. Normal bilateral iliac wings, sacroiliac joints and visualized sacrum. Normal bilateral superior and inferior pubic rami. Normal pubic symphysis. Normal bilateral ischial tuberosities. Normal visualized femoral head. Normal acetabulum. Normal hip joint. RAD/HIP, UNI W/ Pelvis 2-3 Views IMPRESSION: Normal x-ray examination of the pelvis and hip. Electronically Signed: Pastor Napoles MD at 15:21 EDT ,
[2022-10-24 15:44] VITALS: BP 116/72; RESP 16
== END 2022-10-24 15:46 | disposition home or self-care (01) ==
PROVIDERS: Emergency Provider Emergency Medicine; Visit Provider Emergency Medicine
DX: S70.02XA Contusion of left hip, initial encounter (principal); F12.90 Cannabis use, unspecified, uncomplicated; I25.2 Old myocardial infarction; E66.9 Obesity, unspecified; W19.XXXA Unspecified fall, initial encounter
CPT/HCPCS: 73502; 99283

== ENCOUNTER 2023-02-02 19:02 | Emergency (ER) | payer MEDICARE, MEDICAID, SELFPAY ==
[2023-02-02 19:03] VITALS: BP 149/64; PULSE 98; RESP 16; TEMP 36.4; O2SAT 99; BMI 40.9
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
[2023-02-02 21:45] LABS: Bedside Glucose 76 mg/dL (74-106)
== END 2023-02-02 21:44 | disposition home or self-care (01) ==
PROVIDERS: Emergency Provider Emergency Medicine; Visit Provider Emergency Medicine
DX: J06.9 Acute upper respiratory infection, unspecified (principal); F12.90 Cannabis use, unspecified, uncomplicated; I25.2 Old myocardial infarction; Z86.16 Personal history of COVID-19
CPT/HCPCS: 82962; 87428; 99282

== ENCOUNTER 2023-04-08 12:29 | Emergency (ER) | payer MEDICARE, MEDICAID, SELFPAY ==
[2023-04-08 12:30] VITALS: BP 128/81; PULSE 80; RESP 14; TEMP 36.6; O2SAT 98
[2023-04-08 12:32] VITALS: BMI 41.5
[2023-04-08] MEDS: Acetaminophen 325 MG Tablet 650 MG PO (13:26)
--- NOTE | 2023-04-08 13:40 | RAD_ITS ---
STUDY: X-RAY - PELVIS AND LEFT HIP REASON FOR EXAM: Female, 57 years old. Left hip pain. TECHNIQUE: 3 views of the pelvis and hip. COMPARISON: October 24, 2022 FINDINGS: There is a non-specific bowel gas pattern. Normal visualized soft tissue structures. Normal bilateral iliac wings, sacroiliac joints and visualized sacrum. Normal bilateral superior and inferior pubic rami. Normal pubic symphysis. Normal bilateral ischial tuberosities. Stable moderate arthrosis of the left hip. RAD/HIP, UNI W/ Pelvis 2-3 Views IMPRESSION: Stable moderate arthrosis of the left hip. Electronically Signed: Bird Mccormick MD at 14:01 EST ,
--- NOTE | 2023-04-08 13:43 | ED.VIS.LOWEX ---
HPI <ANNABELLE Leblanc - Last Filed: 04/08/23 15:49> History of Present Illness Chief Complaint: Lower Extremity Injury Narrative Narrative: Patient presenting today with left-sided hip pain that she has had on and off for the last few years but has been worse over the past several weeks. She reports that several years ago she fell off the back of a pickup truck and fractured her left hip. Since then, she has injured it a few other times by falling onto her hip. She most recently fell a few weeks ago onto her left hip. She is able to ambulate. She denies any paresthesias or weakness to her left leg. She has been taking Tylenol for her pain with minimal relief of her symptoms. PFS <ANNABELLE Leblanc - Last Filed: 04/08/23 15:49> [facility] Medical History (Updated 04/08/23 @ 15:18 by ANNABELLE Leblanc) Abnormal cardiac enzyme level Angioedema Bradycardia Hypothyroidism Left ventricular systolic dysfunction Marijuana smoker Non-STEMI (non-ST elevated myocardial infarction) Obesity (BMI 30-39.9) Home Medications methocarbamol 500 mg tablet 500 mg PO Q8H 4 days #12 tabs 04/08/23 [Rx Last Taken Unknown] Allergy/AdvReac Type Severity Reaction Status Date / Time diphenhydramine Allergy Unknown Verified 04/08/23 12:29 [From Benadryl] NSAIDS (Non-Steroidal Allergy Angioedema Verified 04/08/23 12:29 Anti-Inflamma Family History Father CAD (coronary artery disease) Myocardial infarction CVA (cerebral vascular accident) Grandfather CAD (coronary artery disease) History of coronary artery bypass surgery Uncle Myocardial infarction, Onset Age: 40 Uncle Myocardial infarction, Onset Age: 50 Mother CVA (cerebral vascular accident) Sister CVA (cerebral vascular accident) Surgical History History of left heart catheterization (~04/03/17) Social History Smoking Status: Never smoker alcohol intake: never substance use type: marijuana ROS <ANNABELLE Lbelanc - Last Filed: 04/08/23 15:49> ROS ED Constitutional Constitutional ED: Denies chills or fever(s) Cardiovascular Cardiovascular: Denies chest pain Respiratory/Chest Respiratory/Chest: Denies cough or dyspnea Gastrointestinal Gastrointestinal: Denies abdominal pain, nausea or vomiting Musculoskeletal Musculoskeletal: Reports arthralgias; Denies myalgias Integumentary Denies Abrasions or rash Neurologic Neurologic: Denies paresthesias or weakness EXAM <ANNABELLE Leblanc - Last Filed: 04/08/23 15:49> Physical Exam Const Vital Signs: 04/08/23 12:30 04/08/23 15:49 Temperature 98 F 98.0 F Temperature Source Temporal Pulse Rate 80 80 Respiratory Rate 14 16 Blood Pressure 128/81 H 158/84 H Blood Pressure Mean 96 108 Pulse Ox 98 96 Oxygen Delivery Method Room Air Positive well nourished, well developed and no apparent distress General Appearance ED: well developed HEENT Reports normocephalic and head/scalp atraumatic Mouth ED: Yes moist mucous membranes normal Eyes PERRL and EOMs intact bilaterally Neck full ROM and supple Chest Wall inspection of chest normal Resp normal respiratory effort and clear to auscultation bilaterally Cardio regular rate and regular rhythm GI soft to palpation, non-tender, non-distended and no masses Back/Spine normal ROM and normal to inspection Extremity normal to inspection and full ROM Extremity Narrative: Pain palpation to the left hip, negative logroll on the left, full range of motion to the left hip, but it is painful. Neuro oriented x3, CN's II-XII intact bilaterally, moves all extremities, no focal motor deficits and no sensory deficits noted Sensorium / Orientation: awake and alert Psych mental status grossly normal and thought process normal Skin no rashes or lesions noted and no wounds <Dr. Angel Ernandez, DO - Last Filed: 04/08/23 16:38> Physical Exam Const Vital Signs: 04/08/23 12:30 04/08/23 15:49 Temperature 98 F 98.0 F Temperature Source Temporal Pulse Rate 80 80 Respiratory Rate 14 16 Blood Pressure 128/81 H 158/84 H Blood Pressure Mean 96 108 Pulse Ox 98 96 Oxygen Delivery Method Room Air MDM <ANNABELLE Leblanc - Last Filed: 04/08/23 15:49> MDM MDM Narrative Medical decision making narrative: Patient presenting today with left hip pain that she has had on and off chronically. Has been worse over the past few weeks. She reports that she fell a few weeks ago onto her left hip but no injury after that. She was able to walk to the grocery store to get groceries today but it became worse when she got home, prompting her to come in. She is able to ambulate. She will be given Tylenol for pain as she does not tolerate NSAIDs. She was previously in pain management for bilateral hip pain, she received a steroid injection in her right hip that did seem to help, she no longer follows with pain management. She does not have a PCP. X-ray of the left hip will be obtained and shows moderate arthrosis. She will be given a referral for pain management, a PCP referral, and orthopedics. She will be given a prescription for Robaxin and can take Tylenol as needed for her pain. She will be discharged home in stable condition and is comfortable with plan. Radiography X-Ray: Read by ED Physician and Read by Radiologist Diagnostic Testing: Clinical Impression(s) from Imaging Studies Hip/Pelvis X-Ray 04/08/23 13:40 IMPRESSION: Stable moderate arthrosis of the left hip. Electronically Signed: Bird Mccormick MD at 14:01 EST Reading Location ID and State: [facility] / [place] , Service support , <Dr. Angel Ernandez, DO - Last Filed: 04/08/23 16:38> [facility] Narrative Medical decision making narrative: Patient presenting today with left hip pain that she has had on and off chronically. Has been worse over the past few weeks. She reports that she fell a few weeks ago onto her left hip but no injury after that. She was able to walk to the grocery store to get groceries today but it became worse when she got home, prompting her to come in. She is able to ambulate. She will be given Tylenol for pain as she does not tolerate NSAIDs. She was previously in pain management for bilateral hip pain, she received a steroid injection in her right hip that did seem to help, she no longer follows with pain management. She does not have a PCP. X-ray of the left hip will be obtained and shows moderate arthrosis. She will be given a referral for pain management, a PCP referral, and orthopedics. She will be given a prescription for Robaxin and can take Tylenol as needed for her pain. She will be discharged home in stable condition and is comfortable with plan. This patient was seen with a PA/STATE ASSESSED PROPERTIES DIRECTOR Individually assessed they patient including history and physical. I have reviewed everything on the chart that is available and agree with the documentation provided by the PA/STATE ASSESSED PROPERTIES DIRECTOR including discussion about the assessment, treatment plan, discussion, and return precautions. Patient presenting with chronic hip pain. She is been seen by pain management and orthopedics. She states she received injection in the right hip but could no longer get a injection in the left hip I have concern for his angioedema is what she reports. Patient states he tolerated the right hip very well. He states he cannot anybody to do an injection in the left hip. He has not had any new trauma. On examination she has tenderness over the greater trochanter. She is ambulatory in the emergency room with antalgic gait. X-rays of the left hip on my interpretation show moderate arthrosis of the left hip and the radiologist services and agrees. She was given Tylenol for pain in the ER she cannot take NSAIDs. We did counseling psychologist the patient we will be able to give her narcotic pain medication as this is a chronic issue and she is already been seen by pain management for this. She requested muscle relaxers which were provided. Impression: 1. Chronic right hip pain Radiography Diagnostic Testing: Clinical Impression(s) from Imaging Studies Hip/Pelvis X-Ray 04/08/23 13:40 IMPRESSION: Stable moderate arthrosis of the left hip. Electronically Signed: Bird Mccormick MD at 14:01 EST Reading Location ID and State: [address] [place] [address] , Service support , Discharge Plan Triage Chief Complaint: Lower Extremity Injury ED Midlevel Provider: [place] ED Provider: Angel Ernandez Dx/Rx/DC Orders Clinical Impression: Arthralgia of left hip Instructions: ED Arthralgia Prescriptions: New methocarbamol 500 mg tablet 500 mg PO Q8H 4 Days Qty: 12 0RF Primary Care Provider: Care Physician,No Primary Referrals: Mari Collins MD [Med Staff - Active Staff] - As Needed Annita Fuentes MD [Med Staff - Implementation Architect] - As Needed Louis Sawyer DO [Med Staff - Active Staff] - 1 Week Care Physician,No Primary [Primary Care Provider] - Activity Restrictions/Additional Instructions: Follow-up with orthopedics and take Tylenol for your pain as needed. Disposition Disposition: Home, Self Care Discharge Date/Time: 04/08/23 15:52
[2023-04-08 15:49] VITALS: BP 158/84; PULSE 80; RESP 16; TEMP 36.7; O2SAT 96
== END 2023-04-08 15:52 | disposition home or self-care (01) ==
PROVIDERS: Emergency Provider Student in an Organized Health Care Education/Training Program; Visit Provider Student in an Organized Health Care Education/Training Program
DX: M16.12 Unilateral primary osteoarthritis, left hip (principal); F12.90 Cannabis use, unspecified, uncomplicated; I25.2 Old myocardial infarction
CPT/HCPCS: 73502; 99282

== ENCOUNTER 2024-06-21 12:54 | Emergency (ER) | payer MEDICARE, MEDICAID, SELFPAY ==
[2024-06-21 12:55] VITALS: BP 156/89; PULSE 85; RESP 16; TEMP 36.9; O2SAT 98; BMI 45.1
--- NOTE | 2024-06-21 13:10 | RAD_ITS ---
EXAM: XR Left Foot Complete, 3 or More Views CLINICAL INDICATION: TECHNIQUE: Frontal, lateral and oblique views of the left foot. COMPARISON: No relevant prior studies available. FINDINGS: BONES/JOINTS: See below. SOFT TISSUES: Cortical irregularity of the 5th metatarsal with overlying soft tissue swelling could be a nondisplaced fracture. Correlation with point tenderness is recommended. If indicated, further evaluation with CT would be beneficial. No radiopaque foreign body. RAD/Foot min 3 Views IMPRESSION: Cortical irregularity of the 5th metatarsal with overlying soft tissue swelling could be a nondisplaced fracture. Correlation with point tenderness is recommended. If indicated, further evaluation with CT would be beneficial. Reading Location: [facility]
--- NOTE | 2024-06-21 15:05 | ED.VIS.LOWEX ---
HPI History of Present Illness HPI Narrative: Patient presents with left foot injury that occurred 3 days ago. Patient states that she hit her foot on a vacuum dumper mold cleaner. Patient states her pain is sharp. Patient states her pain is worse with any weightbearing or ambulation. Patient denies any paresthesias or weakness. Patient states her pain is over the dorsal aspect of the second and third metatarsals. Patient states nothing seems to help with her pain. Patient denies any other injuries. Chief Complaint: Lower Extremity Injury Informant: patient Occured/Mechanism Mechanism/Context: Yes blunt trauma Onset/Context/Timing Onset: Days (3) Context: Sudden Onset Timing: Continuous Quality of Pain: Sharp Location: Left foot Worsened by: Weightbearing Relieved by: Nothing Associated Symptoms Associated Symptoms: Negative for Parasthesia, Weakness or Loss of Funtion [facility] Medical History (Updated 06/21/24 @ 15:[address] Percy Tay, DO) Marijuana smoker Left ventricular systolic dysfunction Abnormal cardiac enzyme level Non-STEMI (non-ST elevated myocardial infarction) Obesity (BMI 30-39.9) Bradycardia Hypothyroidism Angioedema Home Medications ?Medication ?Instructions ?Recorded ?Last Taken ?Type methocarbamol 500 mg tablet 500 mg PO Q8H 4 days #12 tabs 04/08/23 Unknown Rx epinephrine 0.3 mg/0.3 mL 0.3 mg (0.3 mL) IM Q10M PRN PRN 11/24/23 Unknown Rx injection, auto-injector anaphylaxis or angioedema #2 ea prednisone 20 mg tablet 60 mg (3 x 20 mg) PO QHS #9 TABLETS 11/24/23 Unknown Rx Allergy/AdvReac Type Severity Reaction Status Date / Time diphenhydramine (From Allergy Intermediate Swelling Verified 06/21/24 12:56 Benadryl) NSAIDS (Non-Steroidal Allergy Angioedema Verified 06/21/24 12:56 Anti-Inflamma Family History Father CAD (coronary artery disease) Myocardial infarction CVA (cerebral vascular accident) Grandfather CAD (coronary artery disease) History of coronary artery bypass surgery Uncle Myocardial infarction, Onset Age: 40 Uncle Myocardial infarction, Onset Age: 50 Mother CVA (cerebral vascular accident) Sister CVA (cerebral vascular accident) Surgical History History of left heart catheterization (~04/03/17) Social History Smoking Status: Never smoker alcohol intake: never substance use type: marijuana ROS ROS ED Constitutional Constitutional ED: Denies chills or fever(s) Eyes Eyes: Denies blurry vision or change in vision ENT ENT ED: Denies rhinorrhea or sore throat Cardiovascular Cardiovascular: Denies chest pain or palpitations Respiratory/Chest Respiratory/Chest: Denies cough or dyspnea Gastrointestinal Gastrointestinal: Denies nausea or vomiting Genitourinary Genitourinary ED: Denies dysuria or hematuria Musculoskeletal Musculoskeletal: Denies back pain or neck pain Integumentary Denies abscess or rash Neurologic Neurologic: Denies headache(s) or weakness Allergic/Immunologic Allergic/Immunologic ED: Denies mouth swelling or urticaria EXAM Physical Exam Const Vital Signs: 06/21/24 12:55 Temperature 98.4 F Temperature Source Oral Pulse Rate 85 Respiratory Rate 16 Blood Pressure 156/89 H Blood Pressure Mean 111 Pulse Ox 98 Oxygen Delivery Method Room Air Positive well nourished and well developed Constitutional Narrative: BMI is 45.1 General Appearance ED: well developed and NAD HEENT Reports moist mucous membranes Neck full ROM and supple Extremity Extremity Narrative: There is tenderness and edema over the distal second and third metatarsals. There are some mild ecchymosis. There is no obvious deformity noted. Range of motion was limited in all motions of the left foot secondary to pain. Strength is 5/5 bilaterally in lower extremities. There are no sensory deficits noted. There is no tenderness over the fifth metatarsal. Neuro oriented x3, CN's II-XII intact bilaterally, moves all extremities and no sensory deficits noted Sensorium / Orientation: alert Motor Exam: strength 5/5 throughout MDM MDM MDM Narrative Medical decision making narrative: Differential diagnosis includes fracture, contusion, and sprain. X-rays of the left foot will be obtained to assess for fracture. Radiography Diagnostic Testing: Clinical Impression(s) from Imaging Studies Foot X-Ray 06/21/24 13:10 IMPRESSION: Cortical irregularity of the 5th metatarsal with overlying soft tissue swelling could be a nondisplaced fracture. Correlation with point tenderness is recommended. If indicated, further evaluation with CT would be beneficial. Reading Location: [facility] X-rays of the left foot were obtained. There are 3 views. On my independent interpretation, there is no acute fracture. There is a questionable irregularity of the fifth metatarsal. Radiologist also interpreted the x-rays and agrees. Treatment and Re-Evaluation Narrative: Since the patient is tenderness does not correlate with the questionable irregularity on the x-ray, I do not feel that there is a fracture. Patient was given a postoperative shoe. Patient was instructed to ice and elevate the left foot. Patient was instructed to take Tylenol or ibuprofen as needed for pain. Patient was instructed to follow-up with her primary care physician in 5 to 7 days. Patient understood and was agreeable with the plan. All questions were answered. Discharge Plan Triage Chief Complaint: Lower Extremity Injury ED Provider: Percy Tay Dx/Rx/DC Orders Clinical Impression: Contusion of left foot Instructions: ED Foot Contusion Prescriptions: No Action methocarbamol 500 mg tablet 500 mg PO Q8H 4 Days Qty: 12 0RF prednisone 20 mg tablet 60 mg PO QHS Qty: 9 0RF epinephrine 0.3 mg/0.3 mL auto-injector 0.3 mg IM Q10M PRN PRN (Reason: anaphylaxis or angioedema) Qty: 2 0RF Primary Care Provider: Care Physician,No Primary Referrals: Michael Thompson MD [Med Staff - Active Staff] - 5-7 Days Care Physician,No Primary [Primary Care Provider] - Print Language: Serbian Disposition Disposition: Home, Self Care
== END 2024-06-21 15:36 | disposition home or self-care (01) ==
PROVIDERS: Emergency Provider Emergency Medicine; Visit Provider Emergency Medicine
DX: S90.32XA Contusion of left foot, initial encounter (principal); Z68.42 Body mass index [BMI] 45.0-49.9, adult; W22.8XXA Striking against or struck by other objects, initial encounter; E66.9 Obesity, unspecified
CPT/HCPCS: 73630; 99283

== ENCOUNTER 2024-07-06 16:21 | Emergency (ER) | payer MEDICARE, MEDICAID, SELFPAY ==
[2024-07-06 16:22] VITALS: BP 171/104; PULSE 82; RESP 25; TEMP 36.2; O2SAT 100; BMI 46.1
[2024-07-06] MEDS: HYDROcodone Bitartrate/Apap 5/325 Tablet PO (16:49)
--- NOTE | 2024-07-06 16:55 | RAD_ITS ---
PROCEDURE: HIP, UNI W/ PELVIS 2-3 VIEWS ([facility]), 07/06/2024 REASON FOR EXAM: INJURY TECHNIQUE: AP and lateral views of the LEFT hip as well as an AP view of the entire pelvis were obtained. COMPARISON: 04/08/2023 FINDINGS: Fracture/dislocation: None visible. Joint space(s): Mild loss of joint space in the hips. Partially imaged lumbar spondylosis incompletely evaluated. Soft tissues: Unremarkable. Foreign bodies: None visible. Bone mineralization: Grossly unremarkable. Other: None. RAD/HIP, UNI W/ Pelvis 2-3 Views IMPRESSION: 1. No visible acute displaced fracture. If there is persistent concern or the patient is unable to bear weight, consider CT. 2. Additional description as above. Reading Location: [id number]
--- NOTE | 2024-07-06 17:01 | ED.VIS.FALL ---
HPI HPI - Fall History of Present Illness Chief Complaint: Fall Informant: patient Narrative Narrative: Mechanical fall 3 days ago. States taking in the trash and tripped over a stick falling onto her left side. She states she saw stars. She did not pass out. Had a headache that night that is resolved. No anticoagulants. Persistent pain in her left hip. No back or chest pain. No arm pain. She has been taking Tylenol last dose 2 PM. Prior similar symptoms: No PFSH PFSH Medical History (Updated 07/06/24 @ 17:[address] Hai White DO) Marijuana smoker Left ventricular systolic dysfunction Abnormal cardiac enzyme level Non-STEMI (non-ST elevated myocardial infarction) Obesity (BMI 30-39.9) Bradycardia Hypothyroidism Angioedema Home Medications ?Medication ?Instructions ?Recorded ?Last Taken ?Type methocarbamol 500 mg tablet 500 mg PO Q8H 4 days #12 tabs 04/08/23 Unknown Rx epinephrine 0.3 mg/0.3 mL 0.3 mg (0.3 mL) IM Q10M PRN PRN 11/24/23 Unknown Rx injection, auto-injector anaphylaxis or angioedema #2 ea prednisone 20 mg tablet 60 mg (3 x 20 mg) PO QHS #9 TABLETS 11/24/23 Unknown Rx hydrocodone-acetaminophen 5-325mg 1 tab PO Q6H PRN PRN Pain 3 days 07/06/24 Unknown Rx 5mg-325mg #12 TABLETS Allergy/AdvReac Type Severity Reaction Status Date / Time diphenhydramine (From Allergy Intermediate Swelling Verified 07/06/24 16:22 Benadryl) NSAIDS (Non-Steroidal Allergy Angioedema Verified 07/06/24 16:22 Anti-Inflamma Family History Father CAD (coronary artery disease) Myocardial infarction CVA (cerebral vascular accident) Grandfather CAD (coronary artery disease) History of coronary artery bypass surgery Uncle Myocardial infarction, Onset Age: 40 Uncle Myocardial infarction, Onset Age: 50 Mother CVA (cerebral vascular accident) Sister CVA (cerebral vascular accident) Surgical History History of left heart catheterization (~04/03/17) Social History Smoking Status: Never smoker alcohol intake: never substance use type: marijuana ROS ROS ED Constitutional Constitutional ED: Denies chills, fever(s) or sweats ENT ENT ED: Denies sore throat Cardiovascular Cardiovascular: Denies chest pain, leg edema, palpitations or racing heartbeat Respiratory/Chest Respiratory/Chest: Denies cough, dyspnea or dyspnea on exertion Gastrointestinal Gastrointestinal: Denies abdominal pain, diarrhea, nausea or vomiting Genitourinary Genitourinary ED: Denies dysuria, hematuria or urinary frequency Musculoskeletal Musculoskeletal: Reports extremity pain and other Details: Left hip pain ; Denies back pain or neck pain Integumentary Denies rash or wounds Neurologic Neurologic: Denies headache(s), paresthesias or weakness EXAM Physical Exam Const Vital Signs: 07/06/24 16:22 07/06/24 16:42 Temperature 97.2 F L Temperature Source Temporal Pulse Rate 82 Respiratory Rate 25 H Respiratory Effort Normal Non-Labored Respiratory Depth Normal Respiratory Pattern Normal Blood Pressure 171/104 H Blood Pressure Mean 126 Pulse Ox 100 Oxygen Delivery Method Room Air Room Air Positive well nourished and well developed General Appearance ED: well developed HEENT Reports moist mucous membranes normocephalic and atraumatic Eyes General Eye ED: Yes normal appearance of both eyes Neck full ROM Neck Narrative: No midline tenderness or step-offs. Chest Wall inspection of chest normal and palpation of chest normal Chest Narrative: No rib tenderness no ecchymosis. Chest: Negative for tenderness Resp normal respiratory effort and normal air movement Effort and Inspection: symmetric chest movement; Negative for respiratory distress Cardio regular rate, regular rhythm and no murmurs Peripheral Pulses: pulses 2+ throughout GI normal to inspection, nondistended, normoactive bowel sounds and non-tender Palpation: Negative for guarding or rebound tenderness present Back/Spine Back/Spine Narrative: No midline thoracic or lumbar tenderness. Extremity Extremity Narrative: Tender palpation left lateral hip, no shortening deformities. Negative logroll. General Extremety ED: Yes tenderness; Negative for edema General Extremity: Negative for edema Neuro oriented x3, CN's II-XII intact bilaterally and no sensory deficits noted Sensorium / Orientation: awake and alert Skin no rashes or lesions noted and no wounds MDM MDM MDM Narrative Medical decision making narrative: Interventions / MDM: Differential diagnosis: Left hip contusion, closed head injury Diagnosis considered but do not suspect: Intracranial hemorrhage however Nexus CT head criteria negative. Fracture however x-ray negative. My EKG interpretation: N/A Imaging independently reviewed and interpreted by myself: 3 view left hip with pelvis x-ray: No fracture or dislocation noted. External documents reviewed: N/A Test considered but not ordered:N/A ED course: Patient mechanical fall head injury resolved symptoms no focal deficit no anticoagulants. Pain lateral hip with a negative logroll. She does note slight limp, and in however is able to ambulate. [place] provided. X-ray obtained for further evaluation. 1735: Patient x-ray negative. Per radiology of high suspicion keeping CT. I restressed the patient's hip with logroll there is no pain I do not suspect occult fracture. There is no hematoma on reevaluation the scan she is reproducible laterally. No groin pain. She cannot do NSAIDs as it caused angioedema in the past. I will write her a short course for pain medicines. She does not have a PCP. I will refer to PCP and orthopedics. Discussed if symptoms do not improve after 1 to 2 weeks to get reevaluated. All questions were answered. Re-evaluation: stable Disposition discussed with patient/family/significant other: Patient Case discussed with consulting clinician: N/A This note was generated with [employer] dictation software. It may contain incorrect words, spelling, and punctuation that were not noted in checking the note before signing. Radiography Diagnostic Testing: Clinical Impression(s) from Imaging Studies Hip/Pelvis X-Ray 07/06/24 16:55 IMPRESSION: 1. No visible acute displaced fracture. If there is persistent concern or the patient is unable to bear weight, consider CT. 2. Additional description as above. Reading Location: [facility] Discharge Plan Triage Chief Complaint: Fall ED Provider: Hai White Dx/Rx/DC Orders Clinical Impression: Contusion of hip, left, Fall Instructions: ED Hip Contusion Prescriptions: New hydrocodone-acetaminophen 5-325 mg tablet 1 tab PO Q6H PRN PRN (Reason: Pain) 3 Days Qty: 12 0RF No Action methocarbamol 500 mg tablet 500 mg PO Q8H 4 Days Qty: 12 0RF prednisone 20 mg tablet 60 mg PO QHS Qty: 9 0RF epinephrine 0.3 mg/0.3 mL auto-injector 0.3 mg IM Q10M PRN PRN (Reason: anaphylaxis or angioedema) Qty: 2 0RF Primary Care Provider: Care Physician,No Primary Referrals: Abhishek Childers MD [Med Staff - Active Staff] - 1-2 Weeks Care Physician,No Primary [Primary Care Provider] - Radha Murphy MD [[facility]] - 1-2 Weeks Activity Restrictions/Additional Instructions: Left hip x-ray negative. Take pain medicine as prescribed. If symptoms do not improve after 1 to 2 weeks follow-up reevaluation. Print Language: Cymro Disposition Disposition: Home, Self Care
[2024-07-06 17:41] VITALS: BP 151/89; PULSE 62; RESP 18; TEMP 36.2; O2SAT 96
== END 2024-07-06 17:42 | disposition home or self-care (01) ==
PROVIDERS: Emergency Provider Emergency Medicine; Referring Provider Emergency Medicine; Visit Provider Emergency Medicine
DX: S70.02XA Contusion of left hip, initial encounter (principal); W18.09XA Striking against other object with subsequent fall, initial encounter; Z88.6 Allergy status to analgesic agent
CPT/HCPCS: 73502; 99282

== ENCOUNTER 2024-08-31 20:16 | Emergency (ER) | payer MEDICARE, SELFPAY ==
[2024-08-31 20:21] VITALS: BP 137/93; PULSE 94; RESP 20; TEMP 36.3; O2SAT 97; BMI 46.0
--- NOTE | 2024-08-31 21:23 | EX.ED.DYSGE1 ---
HPI History of Present Illness Chief Complaint: Lower Extremity Injury [facility] Medical History Marijuana smoker Left ventricular systolic dysfunction Abnormal cardiac enzyme level Non-STEMI (non-ST elevated myocardial infarction) Obesity (BMI 30-39.9) Bradycardia Hypothyroidism Angioedema Home Medications ?Medication ?Instructions ?Recorded ?Last Taken ?Type methocarbamol 500 mg tablet 500 mg PO Q8H 4 days #12 tabs 04/08/23 Unknown Rx epinephrine 0.3 mg/0.3 mL 0.3 mg (0.3 mL) IM Q10M PRN PRN 11/24/23 Unknown Rx injection, auto-injector anaphylaxis or angioedema #2 ea prednisone 20 mg tablet 60 mg (3 x 20 mg) PO QHS #9 TABLETS 11/24/23 Unknown Rx hydrocodone-acetaminophen 5-325mg 1 tab PO Q6H PRN PRN Pain 3 days 07/06/24 Unknown Rx 5mg-325mg #12 TABLETS Allergy/AdvReac Type Severity Reaction Status Date / Time diphenhydramine (From Allergy Intermediate Swelling Verified 08/31/24 20:20 Benadryl) NSAIDS (Non-Steroidal Allergy Angioedema Verified 08/31/24 20:20 Anti-Inflamma Family History Father CAD (coronary artery disease) Myocardial infarction CVA (cerebral vascular accident) Grandfather CAD (coronary artery disease) History of coronary artery bypass surgery Uncle Myocardial infarction, Onset Age: 40 Uncle Myocardial infarction, Onset Age: 50 Mother CVA (cerebral vascular accident) Sister CVA (cerebral vascular accident) Surgical History History of left heart catheterization (~04/03/17) Social History Smoking Status: Never smoker alcohol intake: never substance use type: marijuana EXAM Physical Exam Const Vital Signs: 08/31/24 20:21 Temperature 97.4 F L Temperature Source Temporal Pulse Rate 94 Respiratory Rate 20 H Blood Pressure 137/93 H Blood Pressure Mean 107 Pulse Ox 97 Oxygen Delivery Method Room Air MDM MDM MDM Narrative Medical decision making narrative: HISTORY OF PRESENT ILLNESS: Chief complaint: Left hip pain 58-year-old female presents with left hip pain since a fall several months ago. Also, paresthesias in the hands. REVIEW OF SYSTEMS: Pertinent positives: Left hip pain, paresthesias Pertinent negatives: Neck pain PHYSICAL EXAM: Nursing triage notes reviewed, Vital signs reviewed Constitutional: please see [facility] HENT: MMM Eyes: Pupils equal round and reactive to light, Extraocular muscles intact Neck: No stridor, no JVD, full neck ROM Lungs: Clear to auscultation, No wheezing or rales. No increased work of breathing, no conversational dyspnea, no accessory muscle use, no nasal flaring. No respiratory distress noted Heart: Regular rate and rhythm, No murmurs, No rubs and No gallops, 2+ distal pulses (radial, femoral, posterior tibial) in all extremities Abdomen: Soft, there is no tenderness, rigidity, rebound or guarding, no obvious peritoneal signs, no palpable pulsatile abdominal masses, no auscultated abdominal bruit : No CVAT Extremities: No edema Neuro: Intact 5/5 strength with ok sign (median), intact finger abduction (ulnar) intact wrist extension (radial n). Intact sensation in the radial, ulnar, and median nerve distributions. Intact sensation L1-S1 dermatomal distributions. Intact 5/5 strength in hip flexion (T12-L3). Knee extension (L2-L4). Ankle dorsiflexion (L4-L5). Ankle plantar flexion (S1). Great toe extension (L5). 2+ patellar and Achilles DTRs. Skin: No rash or lesions noted MEDICAL DECISION MAKING: Chief Complaint: please see HPI External records reviewed: X-ray of the left hip from June 2024 showed no visible acute displaced fracture Factors affecting care: Hypothyroidism [facility] Narrative: The patient was initially hemodynamically stable, afebrile and nontoxic-appearing. Exam with neurovascular intact bilateral upper extremities. I considered the following differential diagnosis: Hip fracture dislocation ALL IMAGES (IF OBTAINED) HAVE BEEN PERSONALLY REVIEWED AND INTERPRETED BY MYSELF. X-ray of the hip was read reviewed by myself with no evidence of obvious fracture dislocation. Radiologist agreed to my interpretation. Patient was treated with Tylenol. Unclear etiology patient symptoms. Suspect Raynaud's phenomenon chronic hip pain/osteoarthritis. The patient's neurovascular Joshua was unremarkable in bilateral upper extremities will give close PCP follow-up. The patient and/or family, caregivers express understanding. The patient and/or family, caregivers agrees with the plan. Shared decision making: I will have a discussion with the patient and or visitors regarding risk/benefits of further testing or admission. They will be made aware of of the risk/benefits inherent in this decision they will be given the opportunity to voice understanding. Total critical care time today provided was at least 0 minutes. This excludes separately billable procedures. Critical care time (if documented) is secondary to the patient having high probability of clinically significant/life threatening deterioration in the patient's condition which required my urgent intervention. Impression: 1. Acute left hip pain 2. Paresthesias Dispo: Discharge home This note was generated with [employer] dictation software. It may contain incorrect words, spelling, and punctuation that were not noted in review of the chart prior to signing. Radiography Diagnostic Testing: Clinical Impression(s) from Imaging Studies Hip/Pelvis X-Ray 08/31/24 21:45 IMPRESSION: See above Reading [facility] Dis[facility] Triage Chief Complaint: Lower Extremity Injury ED Provider: Joe Naik Dx/Rx/DC Orders Prescriptions: No Action methocarbamol 500 mg tablet 500 mg PO Q8H 4 Days Qty: 12 0RF prednisone 20 mg tablet 60 mg PO QHS Qty: 9 0RF epinephrine 0.3 mg/0.3 mL auto-injector 0.3 mg IM Q10M PRN PRN (Reason: anaphylaxis or angioedema) Qty: 2 0RF hydrocodone-acetaminophen 5-325 mg tablet 1 tab PO Q6H PRN PRN (Reason: Pain) 3 Days Qty: 12 0RF Primary Care Provider: Care Physician,No Primary Referrals: Care Physician,No Primary [Primary Care Provider] - Print Language: Sami
--- NOTE | 2024-08-31 21:45 | RAD_ITS ---
PROCEDURE: HIP, UNI W/ PELVIS 2-3 VIEWS 08/31/2024 REASON FOR EXAM: PAIN TECHNIQUE: Three views of the left hip COMPARISON: 07/06/2024 FINDINGS: No acute fracture or dislocation. Moderate hip osteoarthritis. No suspicious lytic or blastic lesions. No focal soft tissue abnormality. RAD/HIP, UNI W/ Pelvis 2-3 Views IMPRESSION: See above Reading Location: [facility]
[2024-08-31] MEDS: Acetaminophen 325 MG Tablet 650 MG PO (22:04)
[2024-08-31 23:31] VITALS: BP 137/81; PULSE 76; RESP 18; TEMP 36.7; O2SAT 96
== END 2024-08-31 23:41 | disposition home or self-care (01) ==
PROVIDERS: Emergency Provider Emergency Medicine; Visit Provider Emergency Medicine
DX: M25.552 Pain in left hip (principal); R20.2 Paresthesia of skin; W19.XXXA Unspecified fall, initial encounter; E03.9 Hypothyroidism, unspecified
CPT/HCPCS: 73502; 99282

== ENCOUNTER 2024-10-27 06:04 | Emergency (ER) | payer MEDICARE, MEDICAID, SELFPAY ==
[2024-10-27 06:05] VITALS: BP 157/79; PULSE 78; RESP 20; TEMP 36.8; O2SAT 97; BMI 46.1
[2024-10-27 06:35] LABS: Glucose, Dipstick Normal (Normal); Ketone-Dipstick Negative (Negative); Leukocyte Esterase-Dipstick Negative /ul (Negative); Mucous, Urine 0 SEEN /hpf (<or=2+); Nitrite-Dipstick Negative (Negative); Occult Blood-Urine Negative /ul (Negative); Protein-Dipstick 15 mg/dl (Negative); Red Blood Cells-Urine 0 SEEN /hpf (0-5); Specific Gravity, Urine 1.015 (1.002-1.030); Urine Bilirubin Dipstick Negative (Negative)
[2024-10-27 06:37] LABS: Color, Urine Yellow (Yellow)
--- OUTSIDE RECORDS SUMMARY | 2024-10-27 06:51 | XMS RPT_ITS | CCD ---
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 lumbar tenderness. Extremity Extremity Narrative: Tender palpation left lateral hip, no shortening deformities. Negative logroll. General Extremety ED: Yes tenderness; Negative for edema General Extremity: Negative for edema Neuro oriented x3, CN's II-XII intact bilaterally and no se (more content not included)... Normal [facility] HIP, UNI W/ Pelvis 2-3 Views on 07-06-2024 HIP, UNI W/ Pelvis 2-3 Views [facility] Imaging Services [address] [place] [address] HIP, UNI W/ Pelvis 2-3 Views MR#: [id number] Acct: [id number] Name: MICHAEL PAIZ Rep #: [id number] : 1965 F 58 From: Jed Almonte MD PCP: Care Physician,No Primary Status: REG ER Study: HIP, UNI W/ Pelvis 2-3 Views Date of Exam: Exam# [id number] Ordering Dr: Hai White DO PROCEDURE: HIP, UNI W/ PELVIS 2-3 VIEWS (RADHP), 07/06/2024 REASON FOR EXAM: INJURY TECHNIQUE: AP and lateral views of the LEFT hip as well as an AP view of the entire pelvis were obtained. COMPARISON: 04/08/2023 FINDINGS: Fracture/dislocation: None visible. Joint space(s): Mild loss of joint space in the hips. Partially imaged lumbar spondylosis incompletely evaluated. Soft tissues: Unremarkable. Foreign bodies: None visible. Bone mineralization: Grossly unremarkable. Other: None. RAD/HIP, UNI W/ Pelvis 2-3 Views IMPRESSION: 1. No visible acute displaced fracture. If there is persistent concern or the patient is unable to bear weight, consider CT. 2. Additional description as above. Reading Location: [id number] CC: Dr. 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 Emergency Department Summary on 06-21-2024 Emergency Department Summary [facility] Medical Records Department [address] [facility] [place] [address] Emergency Department Summary 06/21/24 MR#: [id number] Acct: [id number] Name: MICHAEL PAIZ Rep #: [id number] : 1965 58 From: Percy Tay DO PCP: Care Physician,No Primary Status:DEP ER Location: ED HPI History of Present Illness HPI Narrative: Patient presents with left foot injury that occurred 3 days ago. 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 Patient states her pain is sharp. Patient states her pain is worse with any weightbearing or ambulation. Patient denies any paresthesias or weakness. Patient states her pain is over the dorsal aspect of the second and third metatarsals. Patient states nothing seems to help with her pain. Patient denies any other injuries. Chief Complaint: Lower Extremity Injury Informant: patient Occured/Mechanism Mechanism/Context: Yes blunt trauma Onset/Context/Timing Onset: Days (3) Context: Sudden Onset Timing: Continuous Quality of Pain: Sharp Location: Left foot Worsened by: Weightbearing Relieved by: Nothing Associated Symptoms Associated Symptoms: Negative for Parasthesia, Weakness or Loss of Funtion [facility] Medical History (Updated 06/21/24 @ 15:[address] Percy Tay DO) Marijuana smoker Left ventricular systolic dysfunction Abnormal cardiac enzyme level Non-STEMI (non-ST elevated myocardial infarction) Obesity (BMI 30-39.9) Bradycardia Hypothyroidism Angioedema Home Medications ???Medication ???Instructions ???Recorded ???Last Taken ???Type methocarbamol 500 mg tablet 500 mg PO Q8H 4 days #12 tabs 03/21 Unknown Rx epinephrine 0.3 mg/0.3 mL 0.3 mg (0.3 mL) IM Q10M PRN PRN Unknown Rx injection, auto-injector anaphylaxis or angioedema #2 ea prednisone 20 mg tablet 60 mg (3 x 20 mg) PO QHS #9 TABLET S 11/24/23 Unknown Rx Allergy/AdvReac Type Severity Reaction Status Date / Time diphenhydramine (From Allergy Intermediate Swelling Verified 06/21/24 12:56 Benadryl) NSAIDS (Non-Steroidal Allergy Angioedema Verified 06/21/24 12:56 Anti-Inflamma Family History Father CAD (coronary artery disease) Myocardial infarction CVA (cerebral vascular accident) Grandfather CAD (coronary artery disease) History of coronary artery bypass surgery Uncle Myocardial infarction, Onset Age: 40 Uncle Myocardial infarction, Onset Age: 50 Mother CVA (cerebral vascular accident) Sister CVA (cerebral vascular accident) Surgical History History of left heart catheterization ( 04/03/17) Social History Smoking Status: Never smoker alcohol intake: never substance use type: marijuana ROS ROS ED Constitutional Constitutional ED: Denies chills or fever(s) Eyes Eyes: Denies blurry vision or change in vision ENT ENT ED: Denies rhinorrhea or sore throat Cardiovascular Cardiovascular: Denies chest pain or palpitations Respiratory/Chest Respiratory/Chest: Denies cough or dyspnea Gastrointestinal Gastrointestinal: Denies nausea or vomiting Genitourinary Genitourinary ED: Denies dysuria or hematuria Musculoskeletal Musculoskeletal: Denies back pain or neck pain Integumentary Denies abscess or rash Neurologic Neurologic: Denies headache(s) or weakness Allergic/Immunologic Allergic/Immunologic ED: Denies mouth swelling or urticaria EXAM Physical Exam Const Vital Signs: 06/21/24 12:55 Temperature 98.4 F Temperature Source Oral Pulse Rate 85 Respiratory Rate 16 Blood Pressure 156/89 H Blood Pressure Mean 111 Pulse Ox 98 Oxygen Delivery Method Room Air Positive well nourished and well developed Constitutional Narrative: BMI is 45.1 General Appearance ED: well developed and NAD HEENT Reports moist mucous membranes Neck full ROM and supple Extremity Extremity Narrative: There is tenderness and edema over the distal second and third metatarsals. There are some mild ecchymosis. There is no obvious deformity noted. Range of motion was limited in all motions of the left foot secondary to pain. Strength is 5/5 bilaterally in lower extremities. There are no sensory deficits noted. There is no tenderness over the fifth metatarsal. Neuro oriented x3, CN's II-XII intact bilaterally, moves all extremities and no sensory deficits noted Sensorium / Orientation: alert Motor Exam: strength 5/5 throughout MDM MDM MDM Narrative Medical decision making narrative: Differential diagnosis includes fracture, contusion, and sprain. X-rays of the left foot will be obtained to assess for fracture. Radiography Diagnostic Testi (more content not included)... Normal [facility] Foot min 3 Viewson 5 Foot min 3 Views [facility] Imaging Services [address] [place] [address] Foot min 3 Views MR#: [id number] Acct: [id number] Name: PAIZMICHAEL Rep #: [id number] : 1965 F 58 From: Jed White MD PCP: Care Physician,No Primary Status: PRE ER Study: Foot min 3 Views Date of Exam: 06/21/24 Exam# [id number] Ordering Dr: Provider,Ed P. EXAM: XR Left Foot Complete, 3 or More Views CLINICAL INDICATION: TECHNIQUE: Frontal, lateral and oblique views of the left foot. COMPARISON: No relevant prior studies available. FINDINGS: BONES/JOINTS: See below. SOFT TISSUES: Cortical irregularity of the 5th metatarsal with overlying soft tissue swelling could be a nondisplaced fracture. Correlation with point tenderness is recommended. If indicated, further evaluation with CT would be beneficial. No radiopaque foreign body. RAD/Foot min 3 Views IMPRESSION: Cortical irregularity of the 5th metatarsal with overlying soft tissue swelling could be a nondisplaced fracture. Correlation with point tenderness is recommended. If indicated, further evaluation with CT would be beneficial. 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 XR shoulder RT min 2V*on XR shoulder RT min 2V* [facility] Main [place] [address] [place] [address] XRay Report Signed Patient: Michael Paiz MR#: [id number] : 1965 Acct:[id number] Age/Sex: 58 / F ADM Date: 02/25/24 Loc: ER Room: Type: [facility] ER Attending Dr: Copies to: Johanne Benson APRN Ordering Provider: Johanne Benson APRN Date of Service: 02/25/24 XR/XR ribs RT min 3V w CXR1V*: Extremity Injury, Upper ([id number]) XR/XR shoulder RT min 2V*: Extremity Injury, Upper Right Rib series with Single View Chest HISTORY: Right shoulder pain. Right upper rib pain. Fell 3 weeks ago COMPARISON: None MEDIASTINUM: Cardiac, mediastinal hilar silhouettes are within normal limits. LUNGS AND PLEURA: No acute lung process, pleural effusion or pneumothorax identified. ACUTE FINDINGS: No displaced rib fracture identified. DEGENERATIVE CHANGE: Unremarkable SOFT TISSUE: Unremarkable POSTOP CHANGES: None XR/XR ribs RT min 3V w CXR1V* IMPRESSION: No displaced rib fracture. No acute chest findings. 3 views right shoulder Acromioclavicular marginal spurring. Adequate alignment. No acute displaced fracture. Unremarkable soft tissues. IMPRESSION: No acute displaced fracture. Impression dictated by: Nicola Gomez M.D.02/25/2024 10:08 AM Dictation Location: [place] [address] Transcribed By: [facility] 02/25/24 1008 Dictated By: Nicola Gomez DO 02/25/24 1007 Signed By: 02/25/24 1008 Darius [facility] Emergency Department Summary on 11-23-2023 Emergency Department Summary [facility] Medical Records Department [address] [place] [address] Emergency Department Summary 11/23/23 MR#: [id number] Acct: [id number] Name: MICHAEL PAIZ Rep #: [id number] : 1965 58 From: Dong Granados MD PCP: Care Physician,No Primary Status:REG ER Location: ED HPI History of Present Illness Chief Complaint: Edema 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 She denies dyspnea. She did not eat or take any medications just prior to this and there is no obvious trigger although she has had this triggered by NSAIDs in the past. She also has had it when the trigger was unknown and has been intubated and put in the ICU for this in the past. She agrees this is not quite as bad at the current time. [facility] Medical History (Updated 11/23/23 @ 23:[address] Dong Granados MD) Marijuana smoker Left ventricular systolic dysfunction Abnormal cardiac enzyme level Non-STEMI (non-ST elevated myocardial infarction) Obesity (BMI 30-39.9) Bradycardia Hypothyroidism Angioedema Home Medications ???Medication ???Instructions ???Recorded ???Last Taken ???Type methocarbamol 500 mg tablet 500 mg PO Q8H 4 days #12 tabs 04/08/23 Unknown Rx epinephrine 0.3 mg/0.3 mL 0.3 mg (0.3 mL) IM Q10M PRN PRN 11/24/23 Unknown Rx injection, auto-injector anaphylaxis or angioedema #2 ea prednisone 20 mg tablet 60 mg (3 x 20 mg) PO QHS #9 TABLETS 11/24/23 Unknown Rx Allergy/AdvReac Type Severity Reaction Status Date / Time diphenhydramine (From Allergy Intermediate Swelling Verified 11/23/23 21:41 Benadryl) NSAIDS (Non-Steroidal Allergy Angioedema Verified 11/23/23 21:41 Anti-Inflamma Family History Father CAD (coronary artery disease) Myocardial infarction CVA (cerebral vascular accident) Grandfather CAD (coronary artery disease) History of coronary artery bypass surgery Uncle Myocardial infarction, Onset Age: 40 Uncle Myocardial infarction, Onset Age: 50 Mother CVA (cerebral vascular accident) Sister CVA (cerebral vascular accident) Surgical History History of left heart catheterization ( 04/03/17) Social History Smoking Status: Never smoker alcohol intake: never substance use type: marijuana ROS ROS ED Constitutional Constitutional ED: Denies chills or fever(s) Eyes Eyes: Denies change in vision or diplopia ENT ENT ED: Reports as per HPI, throat swelling and tongue swelling; Denies rhinorrhea or sore throat Cardiovascular Cardiovascular: Denies chest pain or palpitations Respiratory/Chest Respiratory/Chest: Denies cough or dyspnea Gastrointestinal Gastrointestinal: Denies abdominal pain, diarrhea, nausea or vomiting Genitourinary Genitourinary ED: Denies dysuria or hematuria Musculoskeletal Musculoskeletal: Denies back pain or neck pain Integumentary Denies abscess or rash Neurologic Neurologic: Denies headache(s), paresthesias or weakness Psychiatric Psychiatric: Denies anxiety or suicidal thoughts EXAM Physical Exam Const Vital Signs: 11/23/23 21:42 11/23/23 22:27 11/23/23 23:37 Temperature 97.3 F L Temperature Source Temporal Pulse Rate 96 81 Respiratory Rate 18 19 H Respiratory Effort Normal Non-Labored Respiratory Pattern Normal Blood Pressure 157/104 H Blood Pressure Mean 121 Pulse Ox 96 94 Oxygen Delivery Method Room Air 11/24/23 00:46 Temperature Temperature Source Pulse Rate 95 Respiratory Rate 18 Respiratory Effort Respiratory Pattern Blood Pressure 143/83 H Blood Pressure Mean 103 Pulse Ox 94 Oxygen Delivery Method Room Air Positive well nourished, well developed and obese General Appearance ED: well developed and NAD Nutritional Appearance: obese HEENT Reports moist mucous membranes HEENT Narrative: Tongue is diffusely edematous and symmetrically so. There is no stridor or dysphonia. There is no drooling or excess secretions. She is conversive in full sentences without hot potato voice or apparent difficulty. She has no lip or facial swelling. There are no lesions on the tongue. She can lift it up and show me the sublingual tissues without difficulty or shortness of breath. normocephalic and atraumatic Eyes PERRL and EOMs intact bilaterally Neck full ROM and supple Resp normal respiratory effort and clear to auscultation bilaterally Cardio regular rate, regular rhythm and no murmurs Rate: Negative for tachycardic (more content not included)... Normal [facility] Glucose Glucometer (BldC) [M ass/Vol]Ordered By: Rome Perez on 02-02-2023 Glucose [Mass/Vol] 76 mg/dL 74-106 [facility] Comment on above: MANAGEMENT OF PATIEN T CARE PER NURSING PROTOCOL Influenza virus A and B and SARS-CoV-2 (COVID-19) Ag panel - Upper respiratory specimOrdered By: Rome Perez on 02-02-2023 SARS-CoV-2 (COVID-19) RNA LIZ+probe Ql (Resp) [facility] CNOVon 02-10-2022 CNOV Office Visit (AGINTMLW) MICHAEL PAIZ ([id number]) 1965 F Date Time Provider Department 02/10/22 1:00 PM ABHIJIT BHATIA During your visit today, we recorded the following information about you: Temperature Pulse Respiration Blood pressure 98.2 degrees 93/minute 18/minute 110/70 Weight Height 119.7 kg 1.651 m Abhijit Bhatia APRN.RESIDENTIAL AIDE 02/10/2022 1:49 PM Signed This note was created using NoteWriter. Subjective Michael Pineda Isac is a 56 year old female here today for acute visit for complaints of swelling in tongue. Reports hx of angioedema. She has seen [facility] in the past and labs were completed. She did see Dr Archer. She was to follow back up but never did. She reports it happens when she eats some things at time. Reports she ate cheetos last week and her tongue started swelling and then next day she ate them she was fine. Reports she ate watermelon the other day and it started happening. Reports one time she can eat something and it will cause her tongue to swell. She has not followed up with anyone since. Reports rash only if in extreme hot or cold will get hives. Reports it occurs quickly. Reports the first time it happened was 03/2015,reports she was in ICU at that time. The next time was 02/2019 and was admitted to ICU. She continues to have episodes but not as severe. She reports might occur 1-2x/month. It just depends on the environment and what she is eating. She reports she is really not sure what causes it. She does feel it is somewhat related to her nerves. Reports she gets up set easily and little things bother her. Reports she cant take benadryl or ibuprofen. I reviewed her past medical, surgical, social, and family histories today and updated chart. Allergies, chronic medications, and supplements were also reviewed and her list is now up to date. ALLERGIES No Known Allergies No current outpatient medications on file. No current facility-administered medications for this visit. ACTIVE PROBLEM LIST Ddd (Degenerative Disc Disease), Lumbosacral Non Morbid Obesity Due to Excess Calories PAST MEDICAL HISTORY Diagnosis Date Chronic lower back pain DDD (degenerative disc disease), lumbosacral Hives triggered by stressors per patient PAST SURGICAL HISTORY Procedure Laterality Date NONE Social History Tobacco Use Smoking status: Never Smokeless tobacco: Never Tobacco comments: Smokes marijuana socially Substance Use Topics Alcohol use: No Drug use: Yes Types: Marijuana Comment: Socially Family History Problem Relation Age of Onset other (anuerysm) Mother Stroke Father Heart Attack Father Coronary Artery Disease Father other (heart disease) Father Stroke Sister Stroke Sister Heart Attack Paternal Uncle Heart Attack Maternal Uncle Review of Systems Constitutional: Negative for activity change, appetite change, chills, diaphoresis, fatigue and fever. HENT: Negative for ear pain, sinus pain, sore throat and trouble swallowing. No trouble swallowing unless her tongue starts swelling. Reports she calls 911 if it happens. Respiratory: Negative for cough, shortness of breath and wheezing. Cardiovascular: Negative for chest pain, palpitations and leg swelling. Gastrointestinal: Negative for diarrhea, nausea and vomiting. Musculoskeletal: Positive for arthralgias. Shoulder and hip pains She is seeing ortho for this. She has MRI scheduled for left shoulder 02/12/22. She does not know who she is seeing. Skin: Negative for color change, rash and wound. Allergic/Immunologic: Positive for environmental allergies and food allergies. Neurological: Negative for dizziness and light-headedness. Hematological: Negative for adenopathy. Does not bruise/bleed easily. Psychiatric/Behavioral : Negative for dysphoric mood and sleep disturbance. The patient is not nervous/anxious. Objective BP 110/70 (BP Site: Right Arm, BP Position: Sitting, BP Cuff Size: Large Adult) Pulse 93 Temp 36.8 ?C (98.2 ?F) (Oral) Resp 18 Ht 165.1 cm (5' 5) Wt 119.7 kg (264 lb) LMP 06/14/2015 SpO2 98% BMI 43.93 kg/m? Physical Exam Vitals and nursing note reviewed. Constitutional: General: She is not in acute distress. Appearance: Normal appearance. She is obese. She is not ill-appearing. HENT: Head: Normocephalic and atraumatic. Right Ear: Tympanic membrane, ear canal and external ear normal. Left Ear: Tympanic membrane, ear canal and external ear normal. Nose: Nose normal. No congestion or rhinorrhea. Mouth/Throat: Lips: [place]. Mouth: Mucous membranes are moist. Tongue: No lesions. Tongue does not deviate from midline. Palate: No mass and lesions. Pharynx: Oropharynx is clear. No pharyngeal swelling, oropharyngeal exudate, posterior oropharyngeal erythema or uvula swelling. Tonsils: No tonsillar exudate or tonsillar absce (more content not included)... [facility] JERMAINN Telephone (ALLISONMoodyoLE) MICHAEL PAIZ ([id number]) 1965 F Date Time Provider Department 01/09/22 ABHIJIT BHATIA During your visit today, we recorded the following information about you: Lolita Ledbetter 01/09/2022 2:57 PM Signed No Show Documentation Michael Paiz no showed for an appointment on 01/09 with Abhijit Bhatia APRN.RESIDENTIAL AIDE at 1:40 pm. 1 She was scheduled for a New well exam. I did not call pt due to the fact she scheduled another appt already with central scheduling. Did not speak to Michael so I do not know the reason she missed the appt. I do not know if appt was to be cancelled but was not by central scheduling due to the fact that new appt was made an hour before her appt scheduled for today. Resources discussed/offered to patient:, already made new appt No show determined to be fault of patient: N/A May have called and cancelled with central scheduling but it was not cancelled on [facility] scheduled. Patient was rescheduled for 02/10/2022. Letter mailed : N/A Is this the Third or Fourth No Show? Kylie Ledbetter January 09, 2022 2:45 PM Allergies As of Date: 01/09/2022 (No Known Allergies) Date Reviewed: 06/20/2019 Reviewed by: Lio (Moris.Photo Mask Pattern Generator) VEONNE Garcia - Fully Assessed Reason for Visit: No Show [1558] Cmt: Pt No Show for her New Well but scheduled another appt for differnt reason with scheduling. Prescriptions as of 01/09/2022 - DULoxetine (CYMBALTA) 30 mg capsule Take 1 capsule by mouth once daily. - ibuprofen (MOTRIN) 600 mg tablet Take 1 tablet by mouth every 6 hours as needed. - famotidine (PEPCID) 20 mg tablet TAKE 1 TABLET BY MOUTH TWICE DAILY. - fexofenadine (HILDA) 180 mg tablet Take 1 tablet by mouth twice daily. - hydrOXYzine HCl (ATARAX) 25 mg tablet Take 1-2 tablets by mouth every 6 hours as needed. For itching or swelling. - EPINEPHrine (EPIPEN 2-RADHA) 0.3 mg/0.3 mL auto-injector Inject 0.3 mL intramuscularly as needed (for allergic reaction.Seek emergent medical care immediately after use.Disp:one 2-pack w/senior technical trainer). Problem List As Of Date 01/09/2022 Noted Resolved DDD (degenerative disc disease), lumbosacral [M* Non morbid obesity due to excess calories [E66.*10/31/2015 Encounter Status:Closed by LOLITA LEDBETTER on 01/09/22 Normal [facility] XR ELBOW MINIMUM 3 VIEWS LEF Ton 11-16-2020 XR ELBOW MINIMUM 3 VIEWS LEFT ORIGINAL EXAMINATION: THREE XRAY VIEWS OF THE LEFT ELBOW11/16/2020 10:23 am XR left elbow three views COMPARISON: None HISTORY: ORDERING SYSTEM PROVIDED HISTORY: Reason for Exam: pain, FINDINGS: No acute fracture, dislocation, bony lytic process or periosteal reaction is seen in the left elbow. No significant degenerative or erosive type of arthritis or soft tissue calcification. No joint effusions. IMPRESSION: No significant skeletal abnormality in the left elbow. Interpreted by: Francisco Purvis Preliminary Report By: Francisco Purvis Electronically signed By Francisco Purvis Dictated Date: 11/16/2020 10:49:55 AM Prelim Date: 11/16/2020 10:50:27 AM Sign Date: 11/16/2020 10:50:27 AM Ordering Provider: YANNI MARIE [facility] ([place]) OBSOLETEon 07-19-2019 OBSOLETE Refill (FAMPWS) MICHAEL PAIZ ([id number]) 1965 F Date Time Provider Department 07/19/19 LIO GARCIA (ROHAN) FAMPWS During your visit today, we recorded the following information about you: Sabina Hoff MA 07/19/2019 2:21 PM Signed Patient has been identified by name and date of : Yes Pending Prescriptions Disp Refills DULOXETINE 30 MG CAPSULE,DELAYED RELEASE 30 capsule 0 Sig: Take 1 capsule by mouth once daily. ENDY: No RX INSTRUCTIONS: Pharmacy initiated this request. No need to notify patient. DANISH: 06/20/19 NOV: No future OV scheduled Last Refill: 06/20/19 30 caps with no refills; pharmacy requests 90 day supply Sabina Garcia DNP.CNP, [employer] 07/19/2019 3:28 PM Signed The following approved medication requests have been transmitted electronically. Pending Prescriptions Disp Refills DULOXETINE 30 MG CAPSULE,DELAYED RELEASE 90 capsule 0 Sig: Take 1 capsule by mouth once daily. ENDY: No Lio Garcia DNP.CNP Allergies As of Date: 07/19/2019 (No Known Allergies) Date Reviewed: 06/20/2019 Reviewed by: Lio (Moris.Jermain) HENRIQUE Garcia.RESIDENTIAL AIDE - Fully Assessed Reason for Visit: Refill Request [94] Visit Diagnoses:INO (generalized anxiety disorder) [F41.1] Chronic pain syndrome [G89.4] Order(s):DULoxetine (CYMBALTA) 30 mg capsuleTake 1 capsule by mouth once daily.Disp: 90 capsuleRfl: 0 Prescriptions as of 07/19/2019 Sig: DULOXETINE 30 MG CAPSULE,RASHEED* Take 1 capsule by mouth once * IBUPROFEN 600 MG TABLET Take 1 tablet by mouth every * FAMOTIDINE 20 MG TABLET TAKE 1 TABLET BY MOUTH TWICE * FEXOFENADINE 180 MG TABLET Take 1 tablet by mouth twice * HYDROXYZINE HCL 25 MG TABLET Take 1-2 tablets by mouth shivani* Patient not taking: Reported on 06/20/2019 EPINEPHRINE 0.3 MG/0.3 ML INJ* Inject 0.3 mL intramuscularly* Problem List As Of Date 07/19/2019 Noted Resolved DDD (degenerative disc disease), lumbosacral [M* Non morbid obesity due to excess calories [E66.*10/31/2015 Prescriptions ordered this encounter Disp Refills Start End DULOXETINE 30 MG CAPSULE,DELAYED REL* 90 c* 0 07/19/2019 10/17/2019 Route: ORAL Sig: Take 1 capsule by mouth once daily. Medications Discontinued During This Encounter DULoxetine (CYMBALTA) 30 mg capsule 30 c* 0 06/20/2019 07/19/2019 Route: ORAL Sig: Take 1 capsule by mouth once daily. Disc: Reason for discontinue is not on file. Encounter Status:Closed by LIO GARCIA DNP, CNP on 07/19/19 [facility] CNOVon 06-20-2019 CNOV Office Visit (FAMPWS ) MICHAEL PAIZ ([id number]) 1965 F Date Time Provider Department 06/20/19 11:20 AM LIO GARCIA (ROHAN) MARY During your visit today, we recorded the following information about you: Temperature Pulse Respiration Weight 97.7 degrees 72/minute 16/minute 92.5 kg Lio Garcia DNP.CNP, [employer] 06/20/2019 12:33 PM Signed Chief Complaint Patient presents with: ED Follow-up HPI Michael Edwin Isac is a 53 year old female who presents here today for a recent ER visit at [facility] for tongue swelling. This is an established patient of Dr. Espinal primary care provider on file.. This is a new patient to me. Denies any recent hospitalizations. BRIEF ER COURSE: Seen on June 13 for a feeling of tongue swelling for several hours that day. She had a history of angioedema in the past. Classified the swelling is mild at that time. She was evaluated in the emergency room which her exam showed a moist mucous membranes and tongue and narrow oropharynx appeared to be normal. No swelling was identified on exam. She was given Pepcid and Solu-Medrol as she was allergic to beta oh. She was observed in the emergency department for a short period of time without any worsening of her condition. Symptoms mildly improved. She was then discharged home with prednisone 60 mg daily and Pepcid 20 mg twice a day. CONCERNS: Continued angioedema. --He previously had an evaluation in 2017 with an ncqa specialist at [facility]. Testing was completed which showed no rotatory or acquired angioedema after lab work was completed. Patient was informed of results. Instructed to take Hilda Pepcid and hydroxyzine for future events. Stress and anxiety - has life stress and a history of anxiety. States she's been on other anxiety medications but has requested something just for her anxiety. Stated she had asked emergency room for benzodiazepines previously but they refused to get him to her. Unresolved grief. - Father in 2014 and she is has unresolved grief since then. Has difficulty getting through most days and has lots of unresolved questions that she didn't get to ask. Still grieves daily. NEW MEDICATIONS: Prednisone and Pepcid MEDS HELD/DISCONTINUED: None Past medical history, appointments, medications, allergies reviewed 06/20/2019 Previous Medical History PAST MEDICAL HISTORY Diagnosis Date - Chronic lower back pain - DDD (degenerative disc disease), lumbosacral - Hives triggered by stressors per patient Previous Surgical History PAST SURGICAL HISTORY Procedure Laterality Date - NONE Family History FAMILY HISTORY Problem Relation Age of Onset - other (anuerysm) Mother - Stroke Father - Heart Attack Father - Coronary Artery Disease Father - other (heart disease) Father - Stroke Sister - Stroke Sister - Heart Attack Paternal Uncle - Heart Attack Maternal Uncle Patient Allergies ALLERGIES No Known Allergies Current Medications Current Outpatient Medications on File Prior to Visit Medication Sig - ibuprofen (MOTRIN) 600 mg tablet Take 1 tablet by mouth every 6 hours as needed. - famotidine (PEPCID) 20 mg tablet TAKE 1 TABLET BY MOUTH TWICE DAILY. - fexofenadine (HILDA) 180 mg tablet Take 1 tablet by mouth twice daily. - hydrOXYzine HCl (ATARAX) 25 mg tablet Take 1-2 tablets by mouth every 6 hours as needed. For itching or swelling. - tiZANidine (ZANAFLEX) 4 mg tablet Take 1 tablet by mouth every 6 hours as needed (muscle spasms). (Patient taking differently: Take 4 mg by mouth every 6 hours as needed (muscle spasms). Patient has not been taking.) - gabapentin (NEURONTIN) 300 mg capsule Take 1-2 capsules by mouth daily at bedtime. - HYDROcodone-acetaminop hen (NORCO) 5-325 mg per tablet Take 1 tablet by mouth every 6 hours as needed for Pain. - EPINEPHrine (EPIPEN 2-RADHA) 0.3 mg/0.3 mL auto-injector Inject 0.3 mL intramuscularly as needed (for allergic reaction.Seek emergent medical care immediately after use.Disp:one 2-pack w/senior technical trainer). No current facility-administered medications on file prior to visit. Social History Social History Tobacco Use - Smoking status: Never Smoker - Smokeless tobacco: Never Used - Tobacco comment: Smokes marijuana socially Substance Use Topics - Alcohol use: No - Drug use: Yes Types: Marijuana Comment: Socially Review of Symptoms GENERAL: No weight loss, malaise or fevers. No fatigue or night sweats. HEENT: Negative for frequent or significant headaches No sore throat, difficulty swallowing, mouth lesions or hoarseness NECK: Negative for lumps, pain, neck swelling, or swollen nodes RESPIRATORY: Negative for cough, wheezing, dyspnea or shortness of breath CARDIOVASCULAR: Negative for chest pain MUSCULOSKELETAL: + generalized joint pain SKIN: Negative for lesions, rash, and itching EXAM: BP (P) 124/80 (BP Site: Right Arm, BP Position: Sitting, BP Cuff Size: Large Adult) Pulse 72 Temp 36.5 ?C (97.7 ?F) (Right Tympanic) Resp 16 Wt 92.5 kg (204 lb) LMP 06/14/2015 SpO2 97% BMI 33.95 kg/m? General Appearance: Well appearing, alert, in no acute distress, well-hydrated, well nourished. Obese Skin: Skin color, texture, turgor normal, no suspicious rashes or lesions. Head: Normocephalic, no masses, lesions, or abnormalities. Eyes: Anicteric sclera. No redness or drainage. Ears: External ears normal, TM's clear bilaterally, adequate light reflex. Canals reddened Nose/Sinuses: Nares normal, septum midline, mucosa normal, no drainage or sinus tenderness. Oropharynx: Lips, mucosa, and tongue normal, teeth and gums normal, oropharynx normal. Neck: Supple, no mass or lumps. Lymph Nodes: No cervical, supraclavicular, pre/post-auricular, or submandibular lymphadenopathy Lungs: Lungs clear to auscultation. No wheezing, rhonchi, rales. Heart: RRR without murmur, gallop, or rubs. No ectopy. Extremities: No deformities, edema, skin discoloration Psych: Attitude - cooperative, easily engaged in conversation Appearance - poor hygiene and grooming Affect - tearful, anxious. Mental status: Alert, attentive. Speech is clear and fluent Coordination: There are no abnormal or extraneous movements. Gait/Stance: Posture is normal. Gait is steady with normal steps Health Maintenance List DTAP,TDAP,TD(1 - Tdap) due on 10/31/1974 HIV SCREENING due on 10/31/1981 PAP TESTING due on 10/31/1984 HPV TESTING due on 10/31/1993 MAMMOGRAM due on 2003 HEPATITIS C SCREENING due on 2007 LIPID SCREEN due on 10/31/2008 COLORECTAL CANCER SCREENING,SEE MODIFIER due on 10/31/2013 SHINGRIX VACCINE(1 of 2) due on 10/31/2013 DIABETES SCREEN due on 07/15/2018 INFLUENZA(1) due on 12/19/2018 Data reviewed Last 5 Encounter BP Readings: Date: BP: 05/15/2018 140/80 03/16/2018 141/87 08/07/2016 123/85 10/31/2015 122/82 08/28/2015 142/100[Patient advised to see PCP for high blood pressure[ BMI Readings from Last 5 Encounters: 06/20/19 : 33.95 kg/m? 05/15/18 : 34.95 kg/m? 03/16/18 : 37.44 kg/m? 08/07/16 : 37.44 kg/m? 10/31/15 : 36.78 kg/m? Last 5 Encounter Wt Readings: Date: Wt: 05/15/2018 95.3 kg (210 lb) 03/16/2018 102.1 kg (225 lb) 08/07/2016 102.1 kg (225 lb) 10/31/2015 100.2 kg (221 lb) 08/28/2015 101.2 kg (223 lb) Medication and allergy list reviewed, reconciled and updated 06/20/2019 ASSESSMENT/PLAN: 1. Mild tongue swelling - ICD9: 784.2, ICD10: R22.0 (primary diagnosis) Unclear etiology of her angioedema. Upon review of her medical record appears that allergy 2017 ruled out hereditary or acquired angioedema with lab work that was completed. She's had what appears to be 3 total episodes one in February 2015 1 in March 2017 and her most recent one in May 2019. She states there is no events or triggers that she can identify that causes her to have angioedema of her face and throat. Other causes would be pseudoallergic angioedema (PAS) and an idiopathic angioedema (IAO). She does provide a strong family history for heart attacks and angioedema. I would recommend another consultation with allergy/immunology to further look into her history. Most recent angioedema event. 2. INO (generalized anxiety disorder) - ICD9: 300.02, ICD10: F41.1 Not well controlled. Trial of Cymbalta. She does states she's previously been on Cymbalta but I cannot find any record in the documenting that she's been on Cymbalta previously - DULOXETINE 30 MG CAPSULE,DELAYED RELEASE - CONSULT TO [facility] 3. Unresolved grief - ICD9: 309.1, ICD10: F43.21 Recommended counseling and therapy - CONSULT TO [facility] 4. Chronic pain syndrome - ICD9: 338.4, ICD10: G89.4 Plan as in #2. Trial of Cymbalta. - DULOXETINE 30 MG CAPSULE,DELAYED RELEASE - CONSULT TO [facility] Lio Garcia DNP.CNP This note was completed with [employer] dictation software. Note was reviewed for accuracy. There may be minor misspellings or grammar miscues with [employer] Dictation. [place] [id number] Lio Garcia DNP.CNP, EVONNE 06/20/2019 11:45 AM Signed Cymbalta as a trial for 1 month. F/u with Lio Garcia DNP.CNP in 1 month. Mr. Manuel with behavioral health will contact you via phone Return to the clinic or seek care at [facility] for any worsening signs or symptoms: such as fevers, chills, worsening pain, nausea, or diarrhea. For severe symptoms seek care at the closest ER. Plan of care, medicaiton side effects and management reviewed. Patient verbalizes understanding of instructions. Healthy Habits: Recommend regular physical activity, nutrition and healthy eating habits. Consume a variety of foods every day focusing on fruits, vegetables and lean meats). Eat foods low in fat, saturated fat and cholesterol. Eat a limited amount of salt and sodium. Drink adequate amounts of water and limit sugary drinks. Exercise portion control in meal selection. Establish a mindset of a wellness approach to health. Thank you for allowing me to provide your care today. I look forward to seeing you again and maintaining your health. Lio Garcia DNP.CNP Referring Provider: [facility] [[id number]] Allergies As of Date: 06/20/2019 (No Known Allergies) Date Reviewed: 06/20/2019 Reviewed by: Lio (Rohan) EVONNE Garcia - Fully Assessed Reason for Visit: ED Follow-up [821] Primary Visit Diagnosis:Mild tongue swelling [R22.0] Other Visit Diagnoses:INO (generalized anxiety disorder) [F41.1] Unresolved grief [F43.21] Chronic pain syndrome [G89.4] Order(s):DULoxetine (CYMBALTA) 30 mg capsuleTake 1 capsule by mouth once daily.Disp: 30 capsuleRfl: 0 CONSULT TO [facility] [[id number]] Order #: [id number]: 1 Prescriptions as of 06/20/2019 Sig: IBUPROFEN 600 MG TABLET Take 1 tablet by mouth every * FAMOTIDINE 20 MG TABLET TAKE 1 TABLET BY MOUTH TWICE * FEXOFENADINE 180 MG TABLET Take 1 tablet by mouth twice * EPINEPHRINE 0.3 MG/0.3 ML INJ* Inject 0.3 mL intramuscularly* DULOXETINE 30 MG CAPSULE,RASHEED* Take 1 capsule by mouth once * HYDROXYZINE HCL 25 MG TABLET Take 1-2 tablets by mouth shivani* Patient not taking: Reported on 06/20/2019 Problem List As Of Date 06/20/2019 Noted Resolved DDD (degenerative disc disease), lumbosacral [M* Non morbid obesity due to excess calories [E66.*10/31/2015 Other instructions from your clinician: Cymbalta as a trial for 1 month. F/u with Lio Garcia DNP.JERMAIN in 1 month. Mr. Manuel with behavioral health will contact you via phone Return to the clinic or seek care at [facility] for any worsening signs or symptoms: such as fevers, chills, worsening pain, nausea, or diarrhea. For severe symptoms seek care at the closest ER. Plan of care, medicaiton side effects and management reviewed. Patient verbalizes understanding of instructions. Healthy Habits: Recommend regular physical activity, nutrition and healthy eating habits. Consume a variety of foods every day focusing on fruits, vegetables and lean meats). Eat foods low in fat, saturated fat and cholesterol. Eat a limited amount of salt and sodium. Drink adequate amounts of water and limit sugary drinks. Exercise portion control in meal selection. Establish a mindset of a wellness approach to health. Thank you for allowing me to provide your care today. I look forward to seeing you again and maintaining your health. Lio Garcia DNP.JERMAIN Prescriptions ordered this encounter Disp Refills Start End DULOXETINE 30 MG CAPSULE,DELAYED REL* 30 c* 0 06/20/2019 07/20/2019 Route: ORAL Sig: Take 1 capsule by mouth once daily. Medications Discontinued During This Encounter tiZANidine (ZANAFLEX) 4 mg tablet 60 t* 1 10/31/2015 06/20/2019 Route: ORAL Sig: Take 1 tablet by mouth every 6 hours as needed (muscle spasms). Patient taking differently: Take 4 mg by mouth every 6 hours as needed (muscle spasms). Patient has not been taking. Disc: Course of therapy completed HYDROcodone-acetaminop hen (NORCO) 5-* 15 t* 0 10/31/2015 06/20/2019 Class: Print RX Route: ORAL Sig: Take 1 tablet by mouth every 6 hours as needed for Pain. Patient not taking: Reported on 06/20/2019 Disc: Course of therapy completed gabapentin (NEURONTIN) 300 mg capsule 60 c* 1 10/31/2015 06/20/2019 Route: ORAL Sig: Take 1-2 capsules by mouth daily at bedtime. Patient not taking: Reported on 06/20/2019 Disc: Course of therapy completed Encounter Status:Closed by LIO GARCIA DNP, CNP on 06/20/19 [facility] PROGRESSon 06-20-2019 PROGRESS HNO ID: [id number] Author: Lio (Moris.Jermain) HENRIQUE Garcia.JERMAIN Service: ? Author Type: Nurse Practitioner Type: Progress Notes Filed: 06/20/2019 12:33 PM Note Text: Chief Complaint Patient presents with: ED Follow-up HPI Michael Paiz is a 53 year old female who presents here today for a recent ER visit at [facility] for tongue swelling. This is an established patient of Dr. Espinal primary care provider on file.. This is a new patient to me. Denies any recent hospitalizations. BRIEF ER COURSE: Seen on June 13 for a feeling of tongue swelling for several hours that day. She had a history of angioedema in the past. Classified the swelling is mild at that time. She was evaluated in the emergency room which her exam showed a moist mucous membranes and tongue and narrow oropharynx appeared to be normal. No swelling was identified on exam. She was given Pepcid and Solu-Medrol as she was allergic to beta oh. She was observed in the emergency department for a short period of time without any worsening of her condition. Symptoms mildly improved. She was then discharged home with prednisone 60 mg daily and Pepcid 20 mg twice a day. CONCERNS: Continued angioedema. --He previously had an evaluation in 2017 with an ncqa specialist at [facility]. Testing was completed which showed no rotatory or acquired angioedema after lab work was completed. Patient was informed of results. Instructed to take Hilda Pepcid and hydroxyzine for future events. Stress and anxiety - has life stress and a history of anxiety. States she's been on other anxiety medications but has requested something just for her anxiety. Stated she had asked emergency room for benzodiazepines previously but they refused to get him to her. Unresolved grief. - Father in 2014 and she is has unresolved grief since then. Has difficulty getting through most days and has lots of unresolved questions that she didn't get to ask. Still grieves daily. NEW MEDICATIONS: Prednisone and Pepcid MEDS HELD/DISCONTINUED: None Past medical history, appointments, medications, allergies reviewed 06/20/2019 Previous Medical History PAST MEDICAL HISTORY Diagnosis Date - Chronic lower back pain - DDD (degenerative disc disease), lumbosacral - Hives triggered by stressors per patient Previous Surgical History PAST SURGICAL HISTORY Procedure Laterality Date - NONE Family History FAMILY HISTORY Problem Relation Age of Onset - other (anuerysm) Mother - Stroke Father - Heart Attack Father - Coronary Artery Disease Father - other (heart disease) Father - Stroke Sister - Stroke Sister - Heart Attack Paternal Uncle - Heart Attack Maternal Uncle Patient Allergies ALLERGIES No Known Allergies Current Medications Current Outpatient Medications on File Prior to Visit Medication Sig - ibuprofen (MOTRIN) 600 mg tablet Take 1 tablet by mouth every 6 hours as needed. - famotidine (PEPCID) 20 mg tablet TAKE 1 TABLET BY MOUTH TWICE DAILY. - fexofenadine (HILDA) 180 mg tablet Take 1 tablet by mouth twice daily. - hydrOXYzine HCl (ATARAX) 25 mg tablet Take 1-2 tablets by mouth every 6 hours as needed. For itching or swelling. - tiZANidine (ZANAFLEX) 4 mg tablet Take 1 tablet by mouth every 6 hours as needed (muscle spasms). (Patient taking differently: Take 4 mg by mouth every 6 hours as needed (muscle spasms). Patient has not been taking.) - gabapentin (NEURONTIN) 300 mg capsule Take 1-2 capsules by mouth daily at bedtime. - HYDROcodone-acetaminop hen (NORCO) 5-325 mg per tablet Take 1 tablet by mouth every 6 hours as needed for Pain. - EPINEPHrine (EPIPEN 2-RADHA) 0.3 mg/0.3 mL auto-injector Inject 0.3 mL intramuscularly as needed (for allergic reaction.Seek emergent medical care immediately after use.Disp:one 2-pack w/senior technical trainer). No current facility-administered medications on file prior to visit. Social History Social History Tobacco Use - Smoking status: Never Smoker - Smokeless tobacco: Never Used - Tobacco comment: Smokes marijuana socially Substance Use Topics - Alcohol use: No - Drug use: Yes Types: Marijuana Comment: Socially Review of Symptoms GENERAL: No weight loss, malaise or fevers. No fatigue or night sweats. HEENT: Negative for frequent or significant headaches No sore throat, difficulty swallowing, mouth lesions or hoarseness NECK: Negative for lumps, pain, neck swelling, or swollen nodes RESPIRATORY: Negative for cough, wheezing, dyspnea or shortness of breath CARDIOVASCULAR: Negative for chest pain MUSCULOSKELETAL: + generalized joint pain SKIN: Negative for lesions, rash, and itching EXAM: BP (P) 124/80 (BP Site: Right Arm, BP Position: Sitting, BP Cuff Size: Large Adult) Pulse 72 Temp 36.5 ?C (97.7 ?F) (Right Tympanic) Resp 16 Wt 92.5 kg (204 lb) LMP 06/14/2015 SpO2 97% BMI 33.95 kg/m? General Appearance: Well appearing, alert, in no acute distress, well-hydrated, well nourished. Obese Skin: Skin color, texture, turgor normal, no suspicious rashes or lesions. Head: Normocephalic, no masses, lesions, or abnormalities. Eyes: Anicteric sclera. No redness or drainage. Ears: External ears normal, TM's clear bilaterally, adequate light reflex. Canals reddened Nose/Sinuses: Nares normal, septum midline, mucosa normal, no drainage or sinus tenderness. Oropharynx: Lips, mucosa, and tongue normal, teeth and gums normal, oropharynx normal. Neck: Supple, no mass or lumps. Lymph Nodes: No cervical, supraclavicular, pre/post-auricular, or submandibular lymphadenopathy Lungs: Lungs clear to auscultation. No wheezing, rhonchi, rales. Heart: RRR without murmur, gallop, or rubs. No ectopy. Extremities: No deformities, edema, skin discoloration Psych: Attitude - cooperative, easily engaged in conversation Appearance - poor hygiene and grooming Affect - tearful, anxious. Mental status: Alert, attentive. Speech is clear and fluent Coordination: There are no abnormal or extraneous movements. Gait/Stance: Posture is normal. Gait is steady with normal steps Health Maintenance List DTAP,TDAP,TD(1 - Tdap) due on 10/31/1974 HIV SCREENING due on 10/31/1981 PAP TESTING due on 10/31/1984 HPV TESTING due on 10/31/1993 MAMMOGRAM due on 2003 HEPATITIS C SCREENING due on 2007 LIPID SCREEN due on 10/31/2008 COLORECTAL CANCER SCREENING,SEE MODIFIER due on 10/31/2013 SHINGRIX VACCINE(1 of 2) due on 10/31/2013 DIABETES SCREEN due on 07/15/2018 INFLUENZA(1) due on 12/19/2018 Data reviewed Last 5 Encounter BP Readings: Date: BP: 05/15/2018 140/80 03/16/2018 141/87 08/07/2016 123/85 10/31/2015 122/82 08/28/2015 142/100[Patient advised to see PCP for high blood pressure[ BMI Readings from Last 5 Encounters: 06/20/19 : 33.95 kg/m? 05/15/18 : 34.95 kg/m? 03/16/18 : 37.44 kg/m? 08/07/16 : 37.44 kg/m? 10/31/15 : 36.78 kg/m? Last 5 Encounter Wt Readings: Date: Wt: 05/15/2018 95.3 kg (210 lb) 03/16/2018 102.1 kg (225 lb) 08/07/2016 102.1 kg (225 lb) 10/31/2015 100.2 kg (221 lb) 08/28/2015 101.2 kg (223 lb) Medication and allergy list reviewed, reconciled and updated 06/20/2019 ASSESSMENT/PLAN: 1. Mild tongue swelling - ICD9: 784.2, ICD10: R22.0 (primary diagnosis) Unclear etiology of her angioedema. Upon review of her medical record appears that allergy 2017 ruled out hereditary or acquired angioedema with lab work that was completed. She's had what appears to be 3 total episodes one in February 2015 1 in March 2017 and her most recent one in May 2019. She states there is no events or triggers that she can identify that causes her to have angioedema of her face and throat. Other causes would be pseudoallergic angioedema (PAS) and an idiopathic angioedema (IAO). She does provide a strong family history for heart attacks and angioedema. I would recommend another consultation with allergy/immunology to further look into her history. Most recent angioedema event. 2. INO (generalized anxiety disorder) - ICD9: 300.02, ICD10: F41.1 Not well controlled. Trial of Cymbalta. She does states she's previously been on Cymbalta but I cannot find any record in the documenting that she's been on Cymbalta previously - DULOXETINE 30 MG CAPSULE,DELAYED RELEASE - CONSULT TO [facility] 3. Unresolved grief - ICD9: 309.1, ICD10: F43.21 Recommended counseling and therapy - CONSULT TO [facility] 4. Chronic pain syndrome - ICD9: 338.4, ICD10: G89.4 Plan as in #2. Trial of Cymbalta. - DULOXETINE 30 MG CAPSULE,DELAYED RELEASE - CONSULT TO [facility] Lio Garcia DNP.RESIDENTIAL AIDE This note was completed with [employer] dictation software. Note was reviewed for accuracy. There may be minor misspellings or grammar miscues with [employer] Dictation. [place] [id number] Normal [facility] CR Knee 3 Views Right CR Knee 3 Views Right Patient Name: MICHAEL PAIZ Diagnostic Radiology Exam Date/Time 09/26/2018 12:04:00 EDT Exam CR Knee 3 Views Right Ordering Physician RAHUL GRESHAM Accession Number [id number] CPT4 Codes 33769 () Reason For Exam right knee pain, no injury Report Examination: Right knee Clinical Indication: Pain Comparison: None Findings: Three views of the right knee demonstrate no cortical or trabecular irregularity to suggest a fracture. Bones are in normal anatomic alignment with preservation of the tricompartmental joint spaces. Small joint effusion on the lateral projection. Minimal marginal osteophytosis of the femorotibial and patellofemoral compartments. Impression: 1.\X09\No evidence of acute process. 2.\X09\Small joint effusion on the lateral view. Report Dictated on Final Dictating Physician: MD WANG JASON Signed Date and Time: 09/26/2018 12:31 pm Signed by: MD WANG JASON Transcribed Date and Time: 09/26/2018 12:32 [facility] ED NOTEon 05-15-2018 ED NOTE HNO ID: [id number] Author: Mona (Rn) LESLIE Levin Service: (none) Author Type: Registered Nurse Type: ED Notes Filed: 05/15/2018 3:04 PM Note Text: Pt discharged to home [facility] ED NOTE HNO ID: [id number] Author: Mona (Rn) LESLIE Levin Service: (none) Author Type: Registered Nurse Type: ED Notes Filed: 05/15/2018 3:03 PM Note Text: Patient declined [place] [facility] GFR/1.73 sq M predicted among non-blacks MDRD vol rate/area (S/P/Bld) HNO ID: [id number] Author: Todd (Medic) Liset Lindsey Service: (none) Author Type: Marketing Communications Leader and Chair Upholsterer Type: ED Notes Filed: 05/15/2018 1:39 PM Note Text: Pt presents to ed with CC of L knee pain and bi lateral hand pain after falling down 4 steps x 2weeks ago. [facility] ED PROV NOTEon 05-15-2018 Protein mass conc HNO ID: [id number] Author: Ellie Renner MD Service: (none) Author Type: Physician Type: ED Provider Notes Filed: 05/15/2018 2:46 PM Note Text: ED Provider Note Patient Name: Michael Paiz SERVICE DATE: 05/15/18 History Patient presents with: Fall: 2 weeks ago Patient is a 52-year-old female coming in with a fall. Patient fell 2 weeks ago. She states she slipped on ice. She was seen in [facility] emergency department but states her pain [...] the carpal bones of the left wrist. Oil Plant Operator: PJ Transcribe Date/Time: May 15 2018 2:26P Dictated by : DEYSI STANFORD MD This examination was interpreted and the report reviewed and electronically signed by: DEYSI STANFORD MD on May 15 2018 2:29PM EST XR KNEE INJURY 4V AP/LAT/OBLS LT Final Result IMPRESSION: 1. Osteoarthritis of the left knee. 2. Small degenerative cysts versus erosions involving the right wrist carpal bones. 3. Small degenerative cysts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 my urgent intervention. Impression: 1. Acute left hip pain 2. Paresthesias Dispo: Discharge home This note was generated with [employer]ation software. It may contain incorrectwords, spelling, and punctuation that were not noted in review of the chart prior to signing. Radiography Diagnostic Testing: Clinical Impression(s) from Imaging Studies Hip/Pelvis X-Ray 08/31/24 21:45 IMPRESSION: See above Reading Location: [facility] Discharge Plan Triage Chief Complaint: Lower Extremity Injury ED Provider: Joe Naik Dx/Rx/DC Orders Prescriptions: No Action methocarbamol 500 mg tablet 500 mg PO Q8H 4 Days Qty: 12 0RF prednisone 20 mg tablet 60 mg PO QHS Qty: 9 0RF epinephrine 0.3 mg/0.3 mL auto-injector 0.3 mg IM Q10M PRN PRN (Reason: anaphylaxis or angioedema) Qty: 2 0RF hydrocodone-acetaminophen 5-325 mg tablet 1 tab PO Q6H PRN PRN (Reason: Pain) 3 Days Qty: 12 0RF Primary Care Provider: Care Physician,No Primary Referrals: Care Physician,No Primary [Primary Care Provider] - Print Language: Stateless What to do if you have Problems For any increased pain, shortness of breath, bleeding, nausea or vomiting, chestpain, or any unexpected problems, contact your Primary Care Provider. Call [facility] ([phone]) or report to the closest Emergency Room. Call 911 if necessary. 08/31/242321 <Electronically signed by Joe Naik DO> Cosigner Signature (if applicable): CC: No Primary Care Physician ~ Signed [facility] Work Phone: [phone] 513-479903-19-2025 Discharge summary [facility] Medical Records Department [address] [place] [address] Emergency Department Summary 07/06/24 MR#: [id number] Acct: [id number] Name: MICHAEL PAIZ Rep #:[id number] : 1965 58 From: Hai Curry PCP: Care Physician,No Primary Status :REG ER Location: ED HPI HPI - Fall History of Present Illness Chief Complaint: Fall Informant: patient Narrative Narrative: Mechanical fall 3 days ago. States taking in the trash and tripped over a stickfalling onto her left side. She states she saw stars. She did not pass out. Had a headache that night that is resolved. No anticoagulants. Persistent painin her left hip. No back or chest pain. No arm pain. She has been taking Tylenol last dose 2 PM. Prior similar symptoms: No PFSH PFSH Medical History (Updated 07/06/24 @ 17:[address] Hai White DO) Marijuana smoker Left ventricular systolic dysfunction Abnormal cardiac enzyme level Non-STEMI (non-ST elevated myocardial infarction) Obesity (BMI 30-39.9) Bradycardia Hypothyroidism Angioedema Home Medications ?Medication ?Instructions ?Recorded ?Last Taken ?Type methocarbamol 500 mg tablet 500 mg PO Q8H 4 days #12 t abs 04/08/23 Unknown Rx epinephrine 0.3 mg/0.3 mL 0.3 mg (0.3 mL) IM Q10M PRN PRN 11/24/23 Unknown Rx injection, auto-injector anaphylaxis or angioedema #2 ea prednisone 20 mg tablet 60 mg (3 x 20 mg) PO QHS #9 TABLETS 11/24/23 Unknown Rx hydrocodone-acetaminophen 5-325mg 1 tab PO Q6H PRN PRN Pain 3 days 07/06/24 Unknown Rx 5mg-325mg #12 TABLETS Allergy/AdvReac Type Severity Reaction Status Date / Time diphenhydramine (From Allergy Intermediate Swelling Verified 07/06/24 16:22 Benadryl) NSAIDS (Non-Steroidal Allergy Angioedema Verified 07/06/24 16:22 Anti-Inflamma Family History Father CAD (coronary artery disease) Myocardial infarction CVA (cerebral vascular accident) Grandfather CAD (coronary artery disease) History of coronary artery bypass surgery Uncle Myocardial infarction, Onset Age: 40 Uncle Myocardial infarction, Onset Age: 50 Mother CVA (cerebral vascular accident) Sister CVA (cerebral vascular accident) Surgical History History of left heart catheterization (~04/03/17) Social History Smoking Status: Never smoker alcohol intake: never substance use type: marijuana ROS ROS ED Constitutional Constitutional ED: Denies chills, fever(s) or sweats ENT ENT ED: Denies sore throat Cardiovascular Cardiovascular: Denies chest pain, leg edema, palpitations or racing heartbeat Respiratory/Chest Respiratory/Chest: Denies cough, dyspnea or dyspnea on exertion Gastrointestinal Gastrointestinal: Denies abdominal pain, diarrhea, nausea or vomiting Genitourinary Genitourinary ED: Denies dysuria, hematuria or urinary frequency Musculoskeletal Musculoskeletal: Reports extremity pain and other Details: Left hip pain ; Denies back pain or neck pain Integumentary Denies rash or wounds Neurologic Neurologic: Denies headache(s), paresthesias or weakness EXAM Physical Exam Const Vital Signs: 07/06/24 16:22 07/06/24 16:42 Temperature 97.2 F L Temperature Source Temporal Pulse Rate 82 Respiratory Rate 25 H Respiratory Effort Normal Non-Labored Respiratory Depth Normal Respiratory Pattern Normal Blood Pressure 171/104 H Blood Pressure Mean 126 Pulse Ox 100 Oxygen Delivery Method Room Air Room Air Positive well nourished and well developed General Appearance ED: well developed HEENT Reports moist mucous membranes normocephalic and atraumatic Eyes General Eye ED: Yes normal appearance of both eyes Neck full ROM Neck Narrative: No midline tenderness or step-offs. Chest Wall inspection of chest normal and palpation of chest normal Chest Narrative: No rib tenderness no ecchymosis. Chest: Negative for tenderness Resp normal respiratory effort and normal air movement Effort and Inspection: symmetric chest movement; Negative for respiratory distress Cardio regular rate, regular rhythm and no murmurs Peripheral Pulses: pulses 2+ throughout GI normal to inspection, nondistended, normoactive bowel sounds and non-tender Palpation: Negative for guarding or rebound tenderness present Back/Spine Back/Spine Narrative: No midline thoracic or lumbar tenderness. Extremity Extremity Narrative: Tender palpation left lateral hip, no shortening deformities. Negative logroll. General Extremety ED: Yes tenderness; Negative for edema General Extremity: Negative for edema Neuro oriented x3, CN's II-XII intact bilaterally and no sensory deficits noted Sensorium / Orientation: awake and alert Skin no rashes or lesions noted and no wounds MDM MDM MDM Narrative Medical decision making narrative: Interventions / MDM: Differential diagnosis: Left hip contusion, closed head injury Diagnosis considered but do not suspect: Intracranial hemorrhage however Nexus CT head criteria negative. Fracture however x-ray negative. My EKG interpretation: N/A Imaging independently reviewed and interpreted by myself: 3 view left hip with pelvis x-ray: No fracture or dislocation noted. External documents reviewed: N/A Test considered but not ordered:N/A ED course: Patient mechanical fall head injury resolved symptoms no focal deficit no anticoagulants. Pain lateral hip with a negative logroll. She does note slight limp, and in however is able to ambulate. [place] provided. X-ray obtained for further evaluation. 173: Patient x-ray negative. Per radiology of high suspicion keeping CT. I restressed the patient's hip with logroll there is no pain I do not suspect occult fracture. There is no hematoma on reevaluation the scan she is reproducible laterally. No groin pain. She cannot do NSAIDs as it caused angio edema in the past. I will write her a short course for pain medicines. She does not have a PCP. I will refer to PCP and orthopedics. Discussed if symptoms do not improve after 1 to 2 weeks to get reevaluated. All questions were answered. Re-evaluation: stable Disposition discussed with patient/family/significant other: Patient Case discussed with consulting clinician: N/A This note was generated with [employer] dictation software. It may contain incorrectwords, spelling, and punctuation that were not noted in checking the note beforesigning. Radiography Diagnostic Testing: Clinical Impression(s) from Imaging Studies Hip/Pelvis X-Ray 07/06/24 16:55 IMPRESSION: 1. No visible acute displaced fracture. If there is persistent concern or the patient is unable to bear weight, consider CT. 2. Additional description as above. Reading Location: [facility] Discharge Plan Triage Chief Complaint: Fall ED Provider: Hai White Dx/Rx/DC Orders Clinical Impression: Contusion of hip, left, Fall Instructions: ED Hip Contusion Prescriptions: New hydrocodone-acetaminophen 5-325 mg tablet 1 tab PO Q6H PRN PRN (Reason: Pain) 3 Days Qty: 12 0RF No Action methocarbamol 500 mg tablet 500 mg PO Q8H 4 Days Qty: 12 0RF prednisone 20 mg tablet 60 mg PO QHS Qty: 9 0RF epinephrine 0.3 mg/0.3 mL auto-injector 0.3 mg IM Q10M PRN PRN (Reason: anaphylaxis or angioedema) Qty: 2 0RF Primary Care Provider: Care Physician,No Primary Referrals: Abhishek Childers MD [Med Staff - Active Staff] - 1-2 Weeks Care Physician,No Primary [Primary Care Provider] - Radha Murphy MD [[facility]] - 1-2 Weeks Activity Restrictions/Additional Instructions: Left hip x-ray negative. Take pain medicine as prescribed. If symptoms do not improve after 1 to 2 weeks follow-up reevaluation. Print Language: Stateless Disposition Disposition: Home, Self Care What to do if you have Problems For any increased pain, shortness of breath, bleeding, nausea or vomiting, chestpain, or any unexpected problems, contact your Primary Care Provider. Call [facility] ([phone]) or report tothe closest Emergency Room. Call 911 if necessary. 07/06/24 1732 Cosigner Signature (if applicable): CC: No Primary Care Physician ~ Signed [facility]03-19-2025 Radiology Diagnostic study note [facility] Imaging Services [address] [place], [place] [address] HIP, UNI W/ Pelvis 2-3 Views MR#: [id number] Acct: [id number] Name: MICHAEL PAIZ Rep #: [id number] : 1965 F 58 From: Keshia Almonte MD PCP: Care Physician,No Primary Status: REG ER Study:HIP, UNI W/ Pelvis 2-3 Views Date of Ex am: 07/06/24 Exam# [id number] Ordering Dr: Hai White DO PROCEDURE: HIP, UNI W/ PELVIS 2-3 VIEWS ([facility]), 07/06/2024 REASON FOR EXAM: INJURY TECHNIQUE: AP and lateral views of the LEFT hip as well as an AP view of the entire pelvis were obtained. COMPARISON: 04/08/2023 FINDINGS: Fracture/dislocation: None visible. Joint space(s): Mild loss of joint space in the hips. Partially imaged lumbar spondylosis incompletely evaluated. Soft tissues: Unremarkable. Foreign bodies: None visible. Bone mineralization: Grossly unremarkable. Other: None. RAD/HIP, UNI W/ Pelvis 2-3 Views IMPRESSION: 1. No visible acute displaced fracture. If there is persistent concern or the patient is unable to bear weight, consider CT. 2. Additional description as above. Reading Location: [id number] CC: Dr. Hai White DO; No Primary Care Physician ~ Oil Plant Operator: Signed [facility]03-19-2025 Discharge summary Author Hai White [facility] Note Date/Time July 06, 2024 5:3 8pm [facility] Medical Records Department [address] [place] [address] Emergency Department Summary 07/06/24 MR#: [id number] Acct: [id number] Name: MICHAEL PAIZ Rep #:[id number] : 1965 58 From: Hai Curry PCP: Care Physician,No Primary Status :REG ER Location: ED HPI HPI - Fall History of Present Illness Chief Complaint: Fall Informant: patient Narrative Narrative: Mechanical fall 3 days ago. States taking in the trash and tripped over a stickfalling onto her left side. She states she saw stars. She did not pass out. Had a headache that night that is resolved. No anticoagulants. Persistent painin her left hip. No back or chest pain. No arm pain. She has been taking Tylenol last dose 2 PM. Prior similar symptoms: No PFSH PFSH Medical History (Updated 07/06/24 @ 17:[address] Hai White DO) Marijuana smoker Left ventricular systolic dysfunction Abnormal cardiac enzyme level Non-STEMI (non-ST elevated myocardial infarction) Obesity (BMI 30-39.9) Bradycardia Hypothyroidism Angioedema Home Medications ?Medication ?Instructions ?Recorded ?Last Taken ?Type methocarbamol 500 mg tablet 500 mg PO Q8H 4 days #12 t abs 04/08/23 Unknown Rx epinephrine 0.3 mg/0.3 mL 0.3 mg (0.3 mL) IM Q10M PRN PRN 11/24/23 Unknown Rx injection, auto-injector anaphylaxis or angioedema #2 ea prednisone 20 mg tablet 60 mg (3 x 20 mg) PO QHS #9 TABLETS 11/24/23 Unknown Rx hydrocodone-acetaminophen 5-325mg 1 tab PO Q6H PRN PRN Pain 3 days 07/06/24 Unknown Rx 5mg-325mg #12 TABLETS Allergy/AdvReac Type Severity Reaction Status Date / Time diphenhydramine (From Allergy Intermediate Swelling Verified 07/06/24 16:22 Benadryl) NSAIDS (Non-Steroidal Allergy Angioedema Verified 07/06/24 16:22 Anti-Inflamma Family History Father CAD (coronary artery disease) Myocardial infarction CVA (cerebral vascular accident) Grandfather CAD (coronary artery disease) History of coronary artery bypass surgery Uncle Myocardial infarction, Onset Age: 40 Uncle Myocardial infarction, Onset Age: 50 Mother CVA (cerebral vascular accident) Sister CVA (cerebral vascular accident) Surgical History History of left heart catheterization (~04/03/17) Social History Smoking Status: Never smoker alcohol intake: never substance use type: marijuana ROS ROS ED Constitutional Constitutional ED: Denies chills, fever(s) or sweats ENT ENT ED: Denies sore throat Cardiovascular Cardiovascular: Denies chest pain, leg edema, palpitations or racing heartbeat Respiratory/Chest Respiratory/Chest: Denies cough, dyspnea or dyspnea on exertion Gastrointestinal Gastrointestinal: Denies abdominal pain, diarrhea, nausea or vomiting Genitourinary Genitourinary ED: Denies dysuria, hematuria or urinary frequency Musculoskeletal Musculoskeletal: Reports extremity pain and other Details: Left hip pain ; Denies back pain or neck pain Integumentary Denies rash or wounds Neurologic Neurologic: Denies headache(s), paresthesias or weakness EXAM Physical Exam Const Vital Signs: 07/06/24 16:22 07/06/24 16:42 Temperature 97.2 F L Temperature Source Temporal Pulse Rate 82 Respiratory Rate 25 H Respiratory Effort Normal Non-Labored Respiratory Depth Normal Respiratory Pattern Normal Blood Pressure 171/104 H Blood Pressure Mean 126 Pulse Ox 100 Oxygen Delivery Method Room Air Room Air Positive well nourished and well developed General Appearance ED: well developed HEENT Reports moist mucous membranes normocephalic and atraumatic Eyes General Eye ED: Yes normal appearance of both eyes Neck full ROM Neck Narrative: No midline tenderness or step-offs. Chest Wall inspection of chest normal and palpation of chest normal Chest Narrative: No rib tenderness no ecchymosis. Chest: Negative for tenderness Resp normal respiratory effort and normal air movement Effort and Inspection: symmetric chest movement; Negative for respiratory distress Cardio regular rate, regular rhythm and no murmurs Peripheral Pulses: pulses 2+ throughout GI normal to inspection, nondistended, normoactive bowel sounds and non-tender Palpation: Negative for guarding or rebound tenderness present Back/Spine Back/Spine Narrative: No midline thoracic or lumbar tenderness. Extremity Extremity Narrative: Tender palpation left lateral hip, no shortening deformities. Negative logroll. General Extremety ED: Yes tenderness; Negative for edema General Extremity: Negative for edema Neuro oriented x3, CN's II-XII intact bilaterally and no sensory deficits noted Sensorium / Orientation: awake and alert Skin no rashes or lesions noted and no wounds MDM MDM MDM Narrative Medical decision making narrative: Interventions / MDM: Differential diagnosis: Left hip contusion, closed head injury Diagnosis considered but do not suspect: Intracranial hemorrhage however Nexus CT head criteria negative. Fracture however x-ray negative. My EKG interpretation: N/A Imaging independently reviewed and interpreted by myself: 3 view left hip with pelvis x-ray: No fracture or dislocation noted. External documents reviewed: N/A Test considered but not ordered:N/A ED course: Patient mechanical fall head injury resolved symptoms no focal deficit no anticoagulants. Pain lateral hip with a negative logroll. She does note slight limp, and in however is able to ambulate. [place] provided. X-ray obtained for further evaluation. 1735: Patient x-ray negative. Per radiology of high suspicion keeping CT. I restressed the patient's hip with logroll there is no pain I do not suspect occult fracture. There is no hematoma on reevaluation the scan she is reproducible laterally. No groin pain. She cannot do NSAIDs as it caused angioedema in the past. I will write her a short course for pain medicines. She does not have a PCP. I will refer to PCP and orthopedics. Discussed if symptoms do not improve after 1 to 2 weeks to get reevaluated. All questions were answered. Re-evaluation: stable Disposition discussed with patient/family/significant other: Patient Case discussed with consulting clinician: N/A This note was generated with [employer]ation software. It may contain incorrectwords, spelling, and punctuation that were not noted in checking the note beforesigning. Radiography Diagnostic Testing: Clinical Impression(s) from Imaging Studies Hip/Pelvis X-Ray 07/06/24 16:55 IMPRESSION: 1. No visible acute displaced fracture. If there is persistent concern or the patient is unable to bear weight, consider CT. 2. Additional description as above. Reading Location: [facility] Discharge Plan Triage Chief Complaint: Fall ED Provider: Hai White Dx/Rx/DC Orders Clinical Impression: Contusion of hip, left, Fall Instructions: ED Hip Contusion Prescriptions: New hydrocodone-acetaminophen 5-325 mg tablet 1 tab PO Q6H PRN PRN (Reason: Pain) 3 Days Qty: 12 0RF No Action methocarbamol 500 mg tablet 500 mg PO Q8H 4 Days Qty: 12 0RF prednisone 20 mg tablet 60 mg PO QHS Qty: 9 0RF epinephrine 0.3 mg/0.3 mL auto-injector 0.3 mg IM Q10M PRN PRN (Reason: anaphylaxis or angioedema) Qty: 2 0RF Primary Care Provider: Care Physician,No Primary Referrals: Abhishek Childers MD [Med Staff - Active Staff] - 1-2 Weeks Care Physician,No Primary [Primary Care Provider] - Radha Murphy MD [[facility]] - 1-2 Weeks Activity Restrictions/Additional Instructions: Left hip x-ray negative. Take pain medicine as prescribed. If symptoms do not improve after 1 to 2 weeks follow-up reevaluation. Print Language: Stateless Disposition Disposition: Home, Self Care What to do if you have Problems For any increased pain, shortness of breath, bleeding, nausea or vomiting, chestpain, or any unexpected problems, contact your Primary Care Provider. Call [facility] ([phone]) or report to the closest Emergency Room. Call 911 if necessary. 07/06/24 1738 <Electronically signed by Hai Curry> Cosigner Signature (if applicable): CC: No Primary Care Physician ~ Signed [facility] Work Phone: [phone] NoteHNO ID: [id number] Author: Abhijit Bhatia APRN.RESIDENTIAL AIDE Service: ? Author Type: Nurse Practitioner Type: Progress Notes Filed: 02/10/2022 1:49 PM Note Text: This note was created using [employer]. Subjective Michael Paiz is a 56 year old female here today for acute visit for complaints of swelling in tongue. Reports hx of angioedema. She has seen [facility] in the past and labs were completed. She did see Dr Archer. She was to follow back up but never did. She reports it happens when she eats some things at time. Reports she ate cheetos last week and her tongue started swelling and then next day she ate them she was fine. Reports she ate watermelon the other day and it started happening. Reports one time she can eat something and it will cause her tongue to swell. She has not followed up with anyone since. Reports rash only if in extreme hot or cold will get hives. Reports it occurs quickly. Reports the first time it happened was 03/2015,reports she was in ICU at that time. The next time was 02/2019 and was admitted to ICU. She continues to have episodes but not as severe. She reports might occur 1-2x/month. It just depends on the environment and what she is eating. She reports she is really not sure what causes it. She does feel it is somewhat related to her nerves. Reports she gets up set easily and little things bother her. Reports she cant take benadryl or ibuprofen. I reviewed her past medical, surgical, social, and family histories today and updated chart. Allergies, chronic medications, and supplements were also reviewed and her list is now up to date. ALLERGIES No Known Allergies No current outpatient medications on file. No current facility-administered medications for this visit. ACTIVE PROBLEM LIST Ddd (Degenerative Disc Disease), Lumbosacral Non Morbid Obesity Due to Excess Calories PAST MEDICAL HISTORY Diagnosis Date Chronic lower back pain DDD (degenerative disc disease), lumbosacral Hives triggered by stressors per patient PAST SURGICAL HISTORY Procedure Laterality Date NONE Social History Tobacco Use Smoking status: Never Smokeless tobacco: Never Tobacco comments: Smokes marijuana socially Substance Use Topics Alcohol use: No Drug use: Yes Types: Marijuana Comment: Socially Family History Problem Relation Age of Onset other (anuerysm) Mother Stroke Father Heart Attack Father Coronary Artery Disease Father other (heart disease) Father Stroke Sister Stroke Sister Heart Attack Paternal Uncle Heart Attack Maternal Uncle Review of Systems Constitutional: Negative for activity change, appetite change, chills, diaphoresis, fatigue and fever. HENT: Negative for ear pain, sinus pain, sore throat and trouble swallowing. No trouble swallowing unless her tongue starts swelling. Reports she calls 911 if it happens. Respiratory: Negative for cough, shortness of breath and wheezing. Cardiovascular: Negative for chest pain, palpitations and leg swelling. Gastrointestinal: Negative for diarrhea, nausea and vomiting. Musculoskeletal: Positive for arthralgias. Shoulder and hip pains She is seeing ortho for this. She has MRI scheduled for left shoulder 02/12/22. She does not know who she is seeing. Skin: Negative for color change, rash and wound. Allergic/Immunologic: Positive for environmental allergies and food allergies. Neurological: Negative for dizziness and light-headedness. Hematological: Negative for adenopathy. Does not bruise/bleed easily. Psychiatric/Behavioral: Negative for dysphoric mood and sleep disturbance. The patient is not nervous/anxious. Objective BP 110/70 (BP Site: Right Arm, BP Position: Sitting, BP Cuff Size: Large Adult) Pulse 93 Temp 36.8 ?C (98.2 ?F) (Oral) Resp 18 Ht 165.1 cm (5' 5) Wt 119.7 kg (264 lb) LMP 06/14/2015 SpO2 98% BMI 43.93 kg/m? Physical Exam Vitals and nursing note reviewed. Constitutional: General: She is not in acute distress. Appearance: Normal appearance. She is obese. She is not ill-appearing. HENT: Head: Normocephalic and atraumatic. Right Ear: Tympanic membrane, ear canal and external ear normal. Left Ear: Tympanic membrane, ear canal and external ear normal. Nose: Nose normal. No congestion or rhinorrhea. Mouth/Throat: Lips: [place]. Mouth: Mucous membranes are moist. Tongue: No lesions. Tongue does not deviate from midline. Palate: No mass and lesions. Pharynx: Oropharynx is clear. No pharyngeal swelling, oropharyngeal exudate, posterior oropharyngeal erythema or uvula swelling. Tonsils: No tonsillar exudate or tonsillar abscesses. Eyes: Conjunctiva/sclera: Conjunctivae normal. Cardiovascular: Rate and Rhythm: Normal rate and regular rhythm. Pulses: Normal pulses. Heart sounds: Normal heart sounds, S1 normal and S2 normal. No murmur heard. Pulmonary: Effort: Pulmonary effort is normal. No respiratory distress. (more content not included)...[facility]10-24-2022 History of Present illness Narrative* Abhijit Bhatia APRN.RESIDENTIAL AIDE - 02/10/2022 1:12 PM EDT This note was created using [employer]. Subjective Michael Paiz is a 56 year old female here today for acute visit for complaints of swelling in tongue. Reports hx of angioedema. She has [facility] in the past and labs were completed. She did see Dr Archer. She was to follow back up but never did. She reports it happens when she eats some things at time. Reports she ate cheetos last week and her tongue started swelling and then next day she ate them she was fine. Reports she ate watermelon the other day and it started happening. Reports one time she can eat something and it will cause her tongue to swell. She has not followed up with anyone since. Reports rash only if in extreme hot or cold will get hives. Reports it occurs quickly. Reports the first time it happened was 03/2015,reports she was in ICU at that time. The next time was 02/2019 and was admitted to ICU. She continues to have episodes but not as severe. She reports might occur 1-2x/month. It just depends on the environment and what she is eating. She reports she is really not sure what causes it. She does feel it is somewhat related to her nerves. Reports she gets up set easily and little things bother her. Reports she cant take benadryl or ibuprofen. I reviewed her past medical, surgical, social, and family histories today and updated chart. Allergies, chronic medications, and supplements were also reviewed and her list is now up to date. ALLERGIES No Known Allergies No current outpatient medications on file. No current facility-administered medications for this visit. ACTIVE PROBLEM LIST Ddd (Degenerative Disc Disease), Lumbosacral Non Morbid Obesity Due to Excess Calories PAST MEDICAL HISTORY Diagnosis Date Chronic lower back pain DDD (degenerative disc disease), lumbosacral Hives triggered by stressors per patient PAST SURGICAL HISTORY Procedure Laterality Date NONE Social History Tobacco Use Smoking status: Never Smokeless tobacco: Never Tobacco comments: Smokes marijuana socially Substance Use Topics Alcohol use: No Drug use: Yes Types: Marijuana Comment: Socially Family History Problem Relation Age of Onset other (anuerysm) Mother Stroke Father Heart Attack Father Coronary Artery Disease Father other (heart disease) Father Stroke Sister Stroke Sister Heart Attack Paternal Uncle Heart Attack Maternal Uncle Review of Systems Constitutional: Negative for activity change, appetite change, chills, diaphoresis, fatigue and fever. HENT: Negative for ear pain, sinus pain, sore throat and trouble swallowing. No trouble swallowing unless her tongue starts swelling. Reports she calls 911 if it happens. Respiratory: Negative for cough, shortness of breath and wheezing. Cardiovascular: Negative for chest pain, palpitations and leg swelling. Gastrointestinal: Negative for diarrhea, nausea and vomiting. Musculoskeletal: Positive for arthralgias. Shoulder and hip pains She is seeing ortho for this. She has MRI scheduled for left shoulder 02/12/22. She does not know who she is seeing. Skin: Negative for color change, rash and wound. Allergic/Immunologic: Positive for environmental allergies and food allergies. Neurological: Negative for dizziness and light-headedness. Hematological: Negative for adenopathy. Does not bruise/bleed easily. Psychiatric/Behavioral: Negative for dysphoric mood and sleep disturbance. The patient is not nervous/anxious. Objective BP 110/70 (BP Site: Right Arm, BP Position: Sitting, BP Cuff Size: Large Adult) Pulse 93 Temp 36.8 C (98.2 F) (Oral) Resp 18 Ht 165.1 cm (5' 5) Wt 119.7 kg (264 lb) LMP 06/14/2015 LgL668% BMI 43.93 kg/m Physical Exam Vitals and nursing note reviewed. Constitutional: General: She is not in acute distress. Appearance: Normal appearance. She is obese. She is not ill-appearing. HENT: Head: Normocephalic and atraumatic. Right Ear: Tympanic membrane, ear canal and external ear normal. Left Ear: Tympanic membrane, ear canal and external ear normal. Nose: Nose normal. No congestion or rhinorrhea. Mouth/Throat: Lips: [place]. Mouth: Mucous membranes are moist. Tongue: No lesions. Tongue does not deviate from midline. Palate: No mass and lesions. Pharynx: Oropharynx is clear. No pharyngeal swelling, oropharyngeal exudate, posterior oropharyngeal erythema or uvula swelling. Tonsils: No tonsillar exudate or tonsillar abscesses. Eyes: Conjunctiva/sclera: Conjunctivae normal. Cardiovascular: Rate and Rhythm: Normal rate and regular rhythm. Pulses: Normal pulses. Heart sounds: Normal heart sounds, S1 normal and S2 normal. No murmur heard. Pulmonary: Effort: Pulmonary effort is normal. No respiratory distress. Breath sounds: Normal breath sounds. No decreased breath sounds, wheezing, rhonchi or rales. Musculoskeletal: Right lower leg: No edema. Left lower leg: No edema. Skin: General: Skin is warm and dry. Neurological: General: No focal deficit present. Mental Status: She is alert and oriented to person, place, and time. Psychiatric: Mood and Affect: Mood normal. Behavior: Behavior normal. Thought Content: Thought content normal. Judgment: Judgment normal. Component Latest Ref Rng & Units 09/22/2016 WBC 3.70 - 11.00 k/uL 7.53 RBC 3.90 - 5.20 m/uL 4.75 Hemoglobin 11.5 - 15.5 g/dL 13.9 Hematocrit 36.0 - 46.0 % 44.2 MCV 80.0 - 100.0 fL 93.1 MCH 26.0 - 34.0 pG 29.3 MCHC 30.5 - 36.0 g/dL 31.4 RDW-CV 11.5 - 15.0 % 12.2 Platelet Count 150 - 400 k/uL 371 MPV 9.0 - 12.7 fL 11.0 Neut% % 53.4 Abs Neut (ANC) 1.45 - 7.50 k/uL 4.02 Lymph% % 35.1 Abs Lymph 1.00 - 4.00 k/uL 2.64 Norman% % 4.9 Abs Norman 0.00 - 0.86 k/uL 0.37 Eosin% % 6.1 Abs Eosin 0.00 - 0.45 k/uL 0.46 (H) Baso% % 0.5 Abs Baso 0.00 - 0.10 k/uL 0.04 Nucleated Reds 0 /100 WBC 0.0 NRBC 0 /100 WBC 0 Absolute nRBC k/uL 0.00 Diff Type Auto Diff Albumin 3.9 - 4.9 g/dL 3.8 (L) Bilirubin, Total 0.2 - 1.3 mg/dL 0.2 Bilirubin, Conjug <0.2 mg/dL <0.2 Alkaline Phosphatase 32 - 117 U/L 136 (H) AST 13 - 35 U/L 19 ALT 7 - 38 U/L 20 Protein, Total 6.3 - 8.0 g/dL 7.4 C4 13 - 46 mg/dL 43 C1 Esterase Inhibitor Function >=40 % 107 C1 Esterase Inhibit 21 - 39 mg/dL 37 WSR 0 - 20 mm/hr 37 (H) TSH 0.400 - 5.500 uU/mL 1.620 C1q Complement Protein 12 - 22 mg/dL 24 (H) ASSESSMENT/PLAN: 1. Tongue swelling - ICD9: 784.2, ICD10: R22.0 (primary diagnosis) - unknown etiology, referral back [facility] for testing. Will check inflammation markers. If elevated will refer to Rheumatology. - go to ER if difficulty breathing. - CBC - CONSULT TO ALLERGY/IMMUNOLOGY 2. Screening for deficiency anemia - ICD9: V78.1, ICD10: Z13.0 - COMP METABOLIC PANEL 3. Elevated sed rate - ICD9: 790.1, ICD10: R70.0 - SED RATE WESTERGREN - C-REACTIVE PROTEIN (CRP) - CONSULT TO ALLERGY/IMMUNOLOGY Pt would like to schedule primary care doctor in [place] closer to home Abhijit Bhatia APRN.RESIDENTIAL AIDE documented in this encounterAcmc Healthcare SystemEvalusouth [facility] emergency department noteNo assessment information availableWThe [facility] Hospital Work Phone: Evaluation note* Diagnosis Tongue swelling- Primary Swelling, mass, or lump in head and neck Screening for deficiency anemia Screening for other and unspecified deficiency anemia Elevated sed rate Elevated sedimentation rate [facility] Additional Instructions Follow-up with orthopedics and take Tylenol for your pain as needed.[facility] Work Phone: Hospital Discharge instructions Additional Instructions Left hip x-ray negative. Take pain medicine as prescribed. If symptoms do not improve after 1 to 2 weeks follow-up reevaluation.[facility] Work Phone: Hospital Discharge instructions Additional Instructions Thank you for trusting us with your care today! Your x-ray was unremarkable. The cause of your symptoms unclear but is likely not life-threatening Please take Tylenol (2 pills, 650 mg), ibuprofen (2 pills, 400 mg) every 6 hours as needed for pain and fever control. Please return to the emergency department if your symptoms change or worsen. Please follow with your primary care physician for further outpatient evaluation and management.[facility] Work Phone: Reason for referral (narrative)No reason for referral information availableWThe [facility] Hospital Work Phone: Summary Purpose Family History No Family History Records Found Relationship Condition Age at Onset Recorded Date/T salvatore father Coronary artery disease Unknown Myocardial infarction Unknown Cerebrovascular accident (CVA) Unknown grandfather Coronary artery disease Unknown History of coronary artery bypass surgery Unknown uncle Myocardial infarction 40 uncle Myocardial infarction 50 mother Cerebrovascular accident (CVA) Unknown sister Cerebrovascular accident (CVA) Unknown Advance Directives No Advanced Directives Records Found Advance Directive Response Recorded Date/ Time Advance Directives No May 29, 2017 12:22pm Living Will No October 13, 2021 4:21pm Power of Concrete Pump Operator Helper No October 13 4:21pm Advance Directive Response Recorded Date/ Time Advance Directives No May 29, 2017 11:22am Living Will No March 03, 2 022 5:01pm Power of Concrete Pump Operator Helper No March 03, 2022 5:01pm Advance Directive Response Recorded Date/ Time Advance Directives No May 29, 2017 12:22pm Living Will No October 24, 2022 2 :53pm Power of Concrete Pump Operator Helper No October 24, 2022 2:53pm Advance Directive Response Recorded Date/ Time Advance Directives No May 29, 2017 11:22am Living Will No April 08, 2 023 1:11pm Power of Concrete Pump Operator Helper No April 08, 2023 1:11pm Advance Directive Response Recorded Date/ Time Living Will No July 06, 2024 4:44pm Do you have a Healthcare Power of Concrete Pump Operator Helper? No July 06, 2024 4:44pm Living Will No June 21, 2024 4:05pm Do you have a Healthcare Power of Concrete Pump Operator Helper? No June 21, 2024 4:05pm Advance Directives No May 29, 2017 12:22pm Advance Directive Response Recorded Date/ Time Living Will No July 06, 2024 4:44pm Do you have a Healthcare Power of Concrete Pump Operator Helper? No March 19th, 2025 4:44pm Do you have a Healthcare Power of Concrete Pump Operator Helper? No August 31, 2024 9:22pm Living Will No June 21, 2024 4:05pm Do you have a Healthcare Power of Concrete Pump Operator Helper? No June 21, 2024 4:05pm Advance Directives No May 29, 2017 12:22pm Chief Complaint and Reason for Visit Chief Complaint throat swelling LEFT SHOULDER Chief Complaint NV Chief Complaint lower ext Chief Complaint Cold S/S HIP Chief Complaint Admit Date Foot injury June 21, 2024 12:5 4pm FALL July 06, 2024 4:2 1pm Chief Complaint Admit Date Foot injury June 21, 2024 12:5 4pm FALL July 06, 2024 4:2 1pm hip injury August 31, 2024 8:16p m Reason for Referral Specialty Diagnoses / Procedures Referred By Milvia t Referred To Contact [facility] Department Diagnoses Tongue swelling Elevated sed rate Procedures CONSULT TO ALLERGY/IMMUNOLOGY OFFICE/OUTPATIENT NEW HIGH MDM 60-74 MINUTES Abhijit Bhatia, PRODUCT OWNER.RESIDENTIAL AIDE [address] [place] [address] Madalyn Archer (Hist) [address] [place] [address] Referral ID Status Reason Start Date Expiration Date Visits Requested Visits Authorized [id number] Authorized PCP Requested Referral 2 02/10/2023 1 1 Additional Source Comments INFORMATION SOURCE (unrecogn ized section and content) DATE CREATED AUTHOR 05/27/2018 [facility] DATE CREATED AUTHOR AUTHOR'S ORGANIZ ATION 10/09/2018 [facility] DATE CREATED AUTHOR AUTHOR'S ORGANIZ ATION 07/19/2019 [facility] DATE CREATED AUTHOR AUTHOR'S ORGANIZ ATION 11/17/2020 [facility] ([place] DATE CREATED AUTHOR AUTHOR'S ORGANIZ ATION 02/12/2022 [facility] DATE CREATED AUTHOR AUTHOR'S ORGANIZ ATION 03/07/2024 [facility] DATE CREATED AUTHOR AUTHOR'S ORGANIZ ATION 10/02/2024 [facility] Goals (unrecognized section and content) Goals may be documented in a n alternate sectionGoals may be documented in an alternate sectionGoals may be documented in an alternate sectionGoals may be documented in an alternate sectionGoals may be documented in an alternate sectionGoals may be documented in an alternate section Source Comments (unrecognize d section and content) In the event this informatio n is protected by the Federal Confidentiality of Alcohol and Drug Abuse Patient Records regulations: The Federal rules restrict any use of the information to criminally investigate or prosecute any alcohol or drug abuse patient.[facility] Care Teams (unrecognized sec tion and content) Team Status: Active Member Role Status Dates No Primary Care Physician Family Provider Active No Primary Care Physician Primary Care Provider Active Team Status: Inactive Member Role Status Dates No Primary Care Physician Primary Care Provider Active Dr. Percy Tay DO Emergency Provider Active Team Status: Inactive Member Role Status Dates No Primary Care Physician Primary Care Provider Active Dr. Angel Ernandez DO Emergency Provider Active Team Status: Inactive Member Role Status Dates No Primary Care Physician Primary Care Provider Active Dr. Rome Perez MD Attending Provider, Emergency Provider Active Team Status: Active Member Role Status Dates No Primary Care Physician Primary Care Provider Active Team Status: Inactive Member Role Status Dates No Primary Care Physician Primary Care Provider Active Start: June 21, 2024 End: June 21, 2024 Dr. Percy Tay DO Attending Provider Active Start: June 21, 2024 End: June 21, 2024 Dr. Percy Tay DO Emergency Provider Active Start: June 21, 2024 End: June 21, 2024 Team Status: Inactive Member Role Status Dates No Primary Care Physician Primary Care Provider Active Start: July 06, 2024 End: July 06, 2024 Dr. Hai White DO Referring Provider Active Start : July 06, 2024 End: July 06, 2024 Dr. Hai White DO Emergency Provider Active Start : July 06, 2024 End: July 06, 2024 Team Status: Inactive Member Role Status Dates No Primary Care Physician Primary Care Provider Active Start: July 06, 2024 End: July 06, 2024 Dr. Hai White DO Attending Provider Active Start : July 06, 2024 End: July 06, 2024 Dr. Hai White DO Referring Provider Active Start : July 06, 2024 End: July 06, 2024 Dr. Hai White DO Emergency Provider Active Start : July 06, 2024 End: July 06, 2024 Team Status: Inactive Member Role Status Dates No Primary Care Physician Primary Care Provider Active Start: August 31, 2024 End: August 31, 2024 Dr. Joe Naik DO Emergency Provider Active Start: August 31, 2024 End: August 31, 2024 FOR RECORDS PERTAINING TO PATIENTS WHO ARE OR HAVE BEEN ENROLLED IN A CHEMICAL DEPENDENCY/SUBSTANCEABUSE PROGRAM, SOME INFORMATION MAY BE OMITTED. This clinical summary was aggregated from multiple sources. Caution should be exercised in using it in the provision of clinical care. This summary normalizes information from multiple sources, and as a consequence, information in this document may materially change the coding, format and clinical context of patient data. In addition, data may be omitted in some cases. CLINICAL DECISIONS SHOULD BE BASED ON THE PRIMARY CLINICAL RECORDS. [employer] provides no warranty or guarantee of the accuracy or completeness of information in this document.
--- NOTE | 2024-10-27 07:27 | EDS_ITS ---
HPI History of Present Illness Chief Complaint: Back Informant: patient and EMS Narrative Narrative: Patient is a 59-year-old female with past medical history of hypothyroidism. She states that yesterday all she did was bending down to pick something up and as she did this and set up she had developed pain in her low back and her right buttock/hip region. She states there was no trauma or excessive activity. She denies any loss of bowel or bladder control or IV drug use. She states has been no dysuria or hematuria. She states that she has tried [id number] medications but despite this she has had persistent pain and is keeping her from sleeping and therefore she comes in for evaluation [facility] Medical History (Updated 11/01/24 @ 04:[address] Francisco Elizabeth, DO) Marijuana smoker Left ventricular systolic dysfunction Abnormal cardiac enzyme level Non-STEMI (non-ST elevated myocardial infarction) Obesity (BMI 30-39.9) Bradycardia Hypothyroidism Angioedema Home Medications ?Medication ?Instructions ?Recorded ?Last Taken ?Type methocarbamol 500 mg tablet 500 mg PO Q8H 4 days #12 t abs 04/08/23 Unknown Rx epinephrine 0.3 mg/0.3 mL 0.3 mg (0.3 mL) IM Q10M PRN PRN 11/24/23 Unknown Rx injection, auto-injector anaphylaxis or angioedema #2 ea prednisone 20 mg tablet 60 mg (3 x 20 mg) PO QHS #9 TABLETS 11/24/23 Unknown Rx hydrocodone-acetaminophen 5-325mg 1 tab PO Q6H PRN PRN Pain 3 days 07/06/24 Unknown Rx 5mg-325mg #12 TABLETS diazepam 5 mg tablet (Valium) 5 mg PO TID PRN muscle s pasm 5 10/27/24 Unknown Rx days #15 tabs oxycodone-acetaminophen 5 mg-325 1 tab PO Q6H PRN pain 3 days #12 10/27/24 Unknown Rx mg tablet (Percocet) tabs Allergy/AdvReac Type Severity Reaction Status Date / Time diphenhydramine (From Allergy Intermediate Swelling Verified 10/27/24 06:05 Benadryl) NSAIDS (Non-Steroidal Allergy Angioedema Verified 10/27/24 06:05 Anti-Inflamma Family History Father CAD (coronary artery disease) Myocardial infarction CVA (cerebral vascular accident) Grandfather CAD (coronary artery disease) History of coronary artery bypass surgery Uncle Myocardial infarction, Onset Age: 40 Uncle Myocardial infarction, Onset Age: 50 Mother CVA (cerebral vascular accident) Sister CVA (cerebral vascular accident) Family History no significant family his Surgical History History of left heart catheterization (~04/03/17) Social History Smoking Status: Never smoker alcohol intake: never substance use type: marijuana ROS ROS ED Constitutional Constitutional ED: Denies chills or fever(s) ENT ENT ED: Denies sore throat Cardiovascular Cardiovascular: Denies chest pain Respiratory/Chest Respiratory/Chest: Denies cough or dyspnea Gastrointestinal Gastrointestinal: Denies abdominal pain, diarrhea, nausea or vomiting Genitourinary Genitourinary ED: Denies dysuria or hematuria Musculoskeletal Musculoskeletal: Reports back pain Integumentary Denies rash Neurologic Neurologic: Denies headache(s) Hematologic/Lymphatic Hematologic/Lymphatic: Denies easy bleeding or easy bruising EXAM Physical Exam Const Vital Signs: 10/27/24 06:05 Temperature 98.3 F Temperature Source Oral Pulse Rate 78 Respiratory Rate 20 H Blood Pressure 157/79 H Blood Pressure Mean 105 Pulse Ox 97 Oxygen Delivery Method Room Air Positive well nourished, well developed and obese General Appearance ED: well developed; Negative for pallor Nutritional Appearance: obese HEENT HEENT Narrative: Normocephalic atraumatic Eyes PERRL and EOMs intact bilaterally General Eye ED: Negative for scleral icterus Neck supple Resp normal respiratory effort and clear to auscultation bilaterally Cardio regular rate and regular rhythm GI normal to inspection, nondistended, normoactive bowel sounds, non-tender, non- distended and no masses GI Narrative: No voluntary guarding or rigidity or pulsatile mass Auscultation: normoactive bowel sounds Palpation: soft Back/Spine Back/Spine Narrative: No bony deformity or step-off of the thoracic or lumbar spine There is mild diffuse tenderness of the para lumbar muscle belly region. There is tension and spasm noted. Pain worsens with sidebending and rotation. No saddle anesthesia. Negative straight leg raise. No clonus or Babinski. Patellar reflexes are plus 2 out of 4 bilaterally There is pain on palpation over top the right piriformis muscle belly. Patient has a positive Blas sign No overlying soft tissue changes to suggest trauma or infection Extremity normal to inspection Neuro oriented x3, CN's II-XII intact bilaterally and no sensory deficits noted Sensorium / Orientation: alert Psych mental status grossly normal Skin no rashes or lesions noted and no wounds General Skin Exam: Negative for jaundice or pallor MDM MDM MDM Narrative Medical decision making narrative: Patient presented with hypertension but otherwise stable vitals. She reported back pain after bending over and standing up. She denied any direct trauma there is no bruising or abrasions or midline tenderness to suggest this therefore do not feel the need for x-rays as concern for compression fracture or spondylolisthesis is low. She does not have signs of neurovascular compromise or neurologic impingement. She denies loss of bowel or bladder control or IV drug use going against cauda equina or epidural abscess. She has had no recent injections or surgeries to suggest discitis. At this time her history and exam is consistent with a muscle tension/spasm of the lumbosacral region as well as piriformis syndrome. However without concern for underlying bony injury or neurovascular compromise or secondary infection I do not feel there is need for imaging or further workup with laboratory studies and she can be given symptomatic care and discharged home. As your urine sample shows no sign of infection or blood concern for pyelonephritis or kidney stone is low as well. History & Record Review Discussion w/independent historian: Patient Lab Data Attestation: I reviewed the patient's lab results. Labs: Laboratory Results - last 24 hr 10/27/24 06:25 Urine Color Yellow Urine Clarity Clear Urine pH 6.0 Ur Specific [place] 1.015 Urine Protein 15 H Urine Glucose (UA) Normal Urine Ketones Negative Urine Occult Blood Negative Urine Nitrite Negative Urine Bilirubin Negative Urine Urobilinogen Normal Ur Leukocyte Esterase Negative Discharge Plan Triage Chief Complaint: Back ED Provider: Francisco Elizabeth Dx/Rx/DC Orders Clinical Impression: Acute myofascial strain of lumbosacral region, Piriformis syndrome of right side, Hypothyroidism Instructions: Understanding Lumbosacral Strain, ED Back Spasm, No Trauma Prescriptions: New oxycodone-acetaminophen [Percocet] 5-325 mg tablet 1 tab PO Q6H PRN (Reason: pain) 3 Days Qty: 12 0RF diazepam [Valium] 5 mg tablet 5 mg PO TID PRN (Reason: muscle spasm) 5 Days Qty: 15 0RF No Action methocarbamol 500 mg tablet 500 mg PO Q8H 4 Days Qty: 12 0RF prednisone 20 mg tablet 60 mg PO QHS Qty: 9 0RF epinephrine 0.3 mg/0.3 mL auto-injector 0.3 mg IM Q10M PRN PRN (Reason: anaphylaxis or angioedema) Qty: 2 0RF hydrocodone-acetaminophen 5-325 mg tablet 1 tab PO Q6H PRN PRN (Reason: Pain) 3 Days Qty: 12 0RF Primary Care Provider: Care Physician,No Primary Referrals: Michael Thompson MD [Med Staff - Active Staff] - Care Physician,No Primary [Primary Care Provider] - Activity Restrictions/Additional Instructions: Please continue to stretch and heat your low back to help reduce pain and speed healing. Take the prescribed medications as directed for symptom control. Return to the ER should you have any further concerns Print Language: Malian Disposition Disposition: Home, Self Care Discharge Date/Time: 10/27/24 07:39
[2024-10-27 07:32] LABS: Squamous Epithelial Cells - UA 0-5 SEEN /hpf (5-10)
[2024-10-27 07:35] VITALS: BP 146/88; PULSE 71; RESP 18; TEMP 36.6; O2SAT 99
== END 2024-10-27 07:39 | disposition home or self-care (01) ==
PROVIDERS: Emergency Provider Emergency Medicine; Visit Provider Emergency Medicine
DX: S39.012A Strain of muscle, fascia and tendon of lower back, initial encounter (principal); X50.1XXA Overexertion from prolonged static or awkward postures, initial encounter; G57.01 Lesion of sciatic nerve, right lower limb; I25.2 Old myocardial infarction; E03.9 Hypothyroidism, unspecified; E66.9 Obesity, unspecified; Z79.890 Hormone replacement therapy
CPT/HCPCS: 81001; 96374; 96375; 99285; A4216; J2405

== ENCOUNTER → 2024-11-10 | Outpatient (CLI) | payer MEDICARE, MEDICAID, SELFPAY ==
--- NOTE | 2024-11-10 10:15 | RAD_ITS ---
PROCEDURE: HIP, UNI W/ PELVIS 2-3 VIEWS 11/10/2024 REASON FOR EXAM: PAIN IN LEFT HIP TECHNIQUE: HIP, UNI W/ PELVIS 2-3 VIEWS COMPARISON: 08/31/2024 FINDINGS: lower lumbar spine degeneration. Intact pelvic ring. Mild right hip osteoarthritis. Moderate left hip osteoarthritis with joint space narrowing, subchondral cysts and osteophytes. Findings are similar to the previous examination. No acute bone or soft tissue pathology. RAD/HIP, UNI W/ Pelvis 2-3 Views IMPRESSION: [id number]-right hip osteoarthritis. Reading Location: [place] [id number]
[2024-11-10 10:20] LABS: Hematocrit 41.2 % (37-47); Hemoglobin 13.2 g/dL (12.0-15.0); Immature Granulocytes Count 0.060 X10^3/uL (0.0-0.0); Mean Corp Hgb Conc 32.0 g/dL (32-36); Mean Corpuscular Volume 91.2 fL (81-99); Mean Platelet Vol. 9.9 fl (6.2-12.0); NRBC Flagged by Analyzer 0 % (0-5); Platelet Count 342 K/mm3 (150-450); RBC Distribution Width CV 12.8 % (11.6-14.6); RBC Distribution Width SD 42.4 fl (35.1-43.9); Red Blood Count 4.52 M/mm3 (4.2-5.4); White Blood Count 8.3 K/mm3 (4.4-11.0)
[2024-11-10 11:17] LABS: AST(SGOT) 25 U/L (<=31); Alanine Aminotransfer ALT/SGPT 23 U/L (<=34); Albumin, Serum 4.1 g/dL (3.4-4.8); Alkaline Phosphatase 151 U/L (35-104); Anion Gap 12 (5-15); BUN 11 mg/dL (4-19); BUN/Creat Ratio 9.8 RATIO (10-20); Calcium,Total 10.0 mg/dL (7.6-11.0); Carbon Dioxide 24.0 mmol/L (21.0-32.0); Chloride 104 mmol/L (98-108); Globulin 3.5 g/dL (2.2-4.2); Glucose 125 mg/dL (70-99); Potassium 3.8 mmol/L (3.3-5.1)
--- OUTSIDE RECORDS SUMMARY | 2024-11-10 21:03 | XMS RPT_ITS | CCD ---
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 Facility:[facility] Start: 11-23-2023 End: 11-24-2023 ambulatory Dong Roberta Facility:[facility] Start: 04-08-2023 End: 04-08-2023 Emergency department patient visit [facility] Work Phone: Start: 02-02-2023 End: 02-02-2023 Emergency department patient visit [facility] Work Phone: Start: 10-24-2022 End: 10-24-2022 Emergency department patient visit [facility] Work Phone: Start: 03-03-2022 End: 03-03-2022 Emergency department patient visit [facility] Start: 02-10-2022 End: 02-11-2022 ambulatory ABHIJIT MOSCOSOEL Facility:[facility] Start: 02-10-2022 End: 02-10-2022 Patient encounter procedure Abhijit M Jannette SHELLFISH CHECKER.BRIDGE INSTRUCTOR Work Phone: [facility] Comment on above: Tongue swelling (Ratna gail Dx); Screening for deficiency anemia; Elevated sed rate Start: 10-13-2021 End: 10-13-2021 Emergency department patient visit [facility] Start: 06-23-2021 End: 06-23-2021 Emergency department patient visit [facility] Start: 05-15-2018 End: 05-15-2018 Emergency department patient visit [facility] Start: 03-16-2018 End: 03-16-2018 Emergency department patient visit [facility] Procedures Date Procedure Procedure Detail Performing Clinician Start: 10-27-2024 Urnls dip stick/tabl et reagent auto microscopy No Primary Care Physician Start: 08-31-2024 Plain x-ray of pelvi s [...] Treatment Date Care Activity Detail Author Start: 10-27-2024 [facility] Start: 08-31-2024 [facility] Start: 07-06-2024 [facility] Start: 06-21-2024 [facility] Start: 02-10-2023 COVID-19 VACCINE (#1) COVID-19 VACCI NE (#1) [facility] Comment on above: Postponed from 05/03 (Declined at this time) Start: 02-02-2023 [facility] Start: 02-02-2023 [facility] Start: 10-17-2022 Influenza vaccination INFLUENZA (#1) [facility] Comment on above: Postponed from 12/19 (Declined at this time) Start: 03-03-2022 [facility] Work Phone: Start: 02-10-2022 End: 04-12-2022 C reactive protein [Mass/volume] in Serum or Plasma C-REACTIVE PROTEIN (CRP) Lab Routine Elevated sed rate Expected: 02/10/2022, Expires: 04/12/2022 [facility] Work Phone: Comment on above: Expected: 02/10/2022 , Expires: 04/12/2022 Start: 02-10-2022 End: 04-12-2022 CBC panel - Blood by Automated count CBC Lab Routine Tongue swelling Expected: 02/10/2022, Expires: 04/12/2022 [facility] Work Phone: Comment on above: Expected: 02/10/2022 , Expires: 04/12/2022 Start: 02-10-2022 End: 04-12-2022 Comprehensive metabolic 2000 panel - Serum or Plasma COMP METABOLIC PANEL Lab Routine Screening for deficiency anemia Expected: 02/10/2022, Expires: 04/12/2022 [facility] Work Phone: Comment on above: Expected: 02/10/2022 , Expires: 04/12/2022 Start: 02-10-2022 End: 04-12-2022 Erythrocyte sedimentation rate SED RATE WESTERGREN Lab Routine Elevated sed rate Expected: 02/10/2022, Expires: 04/12/2022 [facility] Work Phone: Comment on above: Expected: 02/10/2022 , Expires: 04/12/2022 Start: 04-20-2021 DEPRESSION ASSESSMENT DEPRESSION ASS ESSMENT [facility] Start: 07-15-2018 DIABETES SCREEN DIABETES SCREEN [facility] Start: 10-31-2013 SHINGRIX VACCINE (1 of 2) SHINGRIX VACCINE (1 of 2) [facility] Start: 10-31-2008 COLOGUARD (FIT-DNA) COLOGUARD (FIT-D NA) [facility] Start: 10-31-2008 Colonoscopy COLONOSCOPY [facility] Start: 10-31-2008 COLORECTAL CANCER SCREENING COLORECTAL CANCER SCREENING [facility] Start: 10-31-[address] COLONOGRAPHY [facility] Start: 10-31-2008 FECAL OCCULT BLOOD FECAL OCCULT BLOO D [facility] Start: 10-31-2008 LIPID SCREEN LIPID SCREEN [facility] Start: 10-31-2008 SIGMOIDOSCOPY SIGMOIDOSCOPY [facility] Start: 2003 Mammography MAMMOGRAM [facility] Start: 10-31-1993 HPV TESTING HPV TESTING [facility] Start: 10-31-1984 PAP TESTING PAP TESTING [facility] Start: 10-31-1982 Urine microalbumin profile DTAP,TDAP,TD (1 - Tdap) [facility] Start: 10-31-1981 HEPATITIS C SCREENING HEPATITIS C SC REENING [facility] Start: 10-31-1981 HIV SCREENING HIV SCREENING [facility] Start: 1965 HEPATITIS B (1 of 3 - 3-dose series) HEPATITIS B (1 of 3 - 3-dose series) [facility] Patient Education [facility] Work Phone: Patient referral [facility] Work Phone: Payers Date Payer Category Payer Unknown [id number] 2024 Unknown [id number] 2023 Self-pay [id number] 2017 Medicare [facility] MEDICARE MYC ARE UHC MEDICARE [id number] 2017-Present [phone] [address] [place] [address] Medicare [id number] 2015 Medicaid [facility] MEDICAID MYC ARE [facility] MEDICAID [id number] 2015-Present [phone] [address] [place] [address] Medicaid [id number] 2015 Unknown [id number] Medicare [id number] Unknown [id number] Unknown [id number] Unknown [id number] Unknown [id number] Unknown [id number] Unknown [id number] Unknown [id number] Social History Date Type Detail Facility Start: 10-13-2021 End: 04-08-2023 Tobacco smoking status NHIS Unknown if ever smoked [facility] Start: 06-13-2019 None [facility] Start: 08-09-2018 Alone [facility] Start: 08-31-2020 Non-smoker [facility] Start: 1965 Sex Assigned At Female W [facility] Start: 08-28-2015 End: 10-27-2024 Tobacco smoking status NHIS Never smoked tobacco [facility] Start: 08-28-2015 Tobacco use and exposure Smokeless tobacco non-user [facility] Start: 02-10-2022 Alcohol intake Current non-dr dishroom attendant of alcohol (finding) [facility] Start: 08-28-2015 Tobacco Comment Smokes kim mckee [facility] Start: 1965 Sex Assigned At Not on file [facility] Start: 01-31-2022 End: 02-10-2022 Exposure to SARS-CoV-2 (event) Not sure [facility] Start: 07-06-2024 Sex Female (finding) [facility] Mental Status Date Assessment Result Facility 02-02-2023 Cognitive function Level Of Cons ciousness Awake;Alert;Appropriate;Follow s Commands [facility] Work Phone: 06-23-2021 Cognitive function Level Of Cons ciousness Awake;Alert;Appropriate [facility] Work Phone: Clinical Notes 02-10-2022 to 08-31-2024 Note Date & Type Note Facility 08-31-2024 Discharge summary [facility] 08-31-2024 Radiology Diagnostic study note [facility] [address] [place] [address] HIP, UNI W/ Pelvis 2-3 Views MR#: [id number] Acct: [id number] Name: MICHAEL PAIZ Rep #: [id number] : 1965 F 58 From: Carlyn Ren MD PCP: Care Physician,No Primary Status: REG ER Study:HIP, UNI W/ Pelvis 2-3 Views Date of Ex am: 08/31/24 Exam# [id number] Ordering Dr: Diogo Naik DO PROCEDURE: HIP, [...] Naik DO; No Primary Care Physician ~ Supervisor Shuttle Fitting: Signed [facility] 08-31-2024 Discharge summary Note Date/Time August 31, 2024 11:22pm [facility] Medical Records Department [address] [place] [address] Emergency Department Summary 08/31/24 MR#: [id number] Acct: [id number] Name: MICHAEL PAIZ Rep #:[id number] : 1965 58 From: Joe Alvarez PCP: Care Physician,No Primary Status :REG ER Location: ED HPI History of Present Illness Chief Complaint: [facility] Extremity [facility] Medical History Marijuana smoker Left ventricular [...] Ox 97 Oxygen Delivery Method Room Air [facility] Narrative Medical decision making narrative: HISTORY OF PRESENT ILLNESS: Chief complaint: Left hip pain 58-year-old female presents with left hip pain since a fall "several months ago". Also, paresthesias in the hands. REVIEW OF [...] Discharge home This note was generated with [employer] dictation software. It may contain incorrectwords, spelling, and punctuation that were not noted in review of the chart prior to signing. Radiography Diagnostic Testing: Clinical Impression(s) from Imaging Studies Hip/Pelvis X-Ray 08/31/24 21:45 IMPRESSION: See above Reading Location: [facility] Discharge Plan Triage Chief Complaint: Lower Extremity [...] Primary [Primary Care Provider] - Print Language: Pashto What to do if you have Problems For any increased pain, shortness of breath, bleeding, nausea or vomiting, chestpain, or any unexpected problems, contact your Primary Care Provider. Call [facility] ([phone]) or report to the closest Emergency Room. Call 911 if necessary. 08/31/242321 <Electronically signed by Joe Naik DO> Cosigner Signature (if applicable): CC: No Primary Care Physician ~ Signed [facility] Work Phone: [phone] Discharge summary [facility] Medical Records Department [address] [place] [address] Emergency Department Summary 07/06/24 MR#: [id number] Acct: [id number] Name: MICHAEL PAIZ Rep #:[id number] : 1965 58 From: Hai Curry PCP: [...] and in however is able to ambulate. [place] provided. X-ray obtained for further evaluation. 1735: [...] clinician: N/A This note was generated with Fle[employer] dictation software. It may contain incorrectwords, spelling, and punctuation that were not noted in checking the note beforesigning. Radiography Diagnostic Testing: Clinical Impression(s) from Imaging Studies Hip/Pelvis X-Ray 07/06/24 16:55 IMPRESSION: 1. No visible acute displaced fracture. If there is persistent concern or the patient is unable to bear weight, consider CT. 2. Additional description as above. Reading Location: [id number] Discharge Plan Triage Chief Complaint: Fall ED [...] to 2 weeks follow-up reevaluation. Print Language: Pashto Disposition Disposition: Home, Self Care What to do if you have Problems For any increased pain, shortness of breath, bleeding, nausea or vomiting, chestpain, or any unexpected problems, contact your Primary Care Provider. Call [facility] ([phone]) or report tothe closest Emergency Room. Call 911 if necessary. 07/06/24 1738 Cosigner Signature (if applicable): CC: No Primary Care Physician ~ Signed [facility]03-19-2025 Radiology Diagnostic study note [facility] Services [address] [place] [address] HIP, UNI W/ Pelvis 2-3 Views MR#: [id number] Acct: [id number] Name: MICHAEL PAIZ Edwin Rep #: [id number] : 1965 F 58 From: Keshia Almonte MD PCP: Care Physician,No Primary Status: REG ER Study:HIP, UNI W/ Pelvis 2-3 Views Date of Ex am: 07/06/24 Exam# [id number] Ordering Dr: Hai White DO PROCEDURE: HIP, [...] 2. Additional description as above. Reading Location: [id number] CC: Dr. Hai White DO; No Primary Care Physician ~ Supervisor Shuttle Fitting: Signed [facility]03-19-2025 Discharge summary Author Hai White [facility] Note Date/Time July 06, 2024 5:3 8pm [facility] Medical Records Department [address] [place] [address] Emergency Department Summary 07/06/24 MR#: [id number] Acct: [id number] Name: PAIZ,MICHAEL Pineda Rep #:[id number] : 1965 58 From: Hai Curry PCP: [...] and in however is able to ambulate. [place] provided. X-ray obtained for further evaluation. 1735: [...] clinician: N/A This note was generated with Fle[employer] dictation software. It may contain incorrectwords, spelling, and punctuation that were not noted in checking the note beforesigning. Radiography Diagnostic Testing: Clinical Impression(s) from Imaging Studies Hip/Pelvis X-Ray 07/06/24 16:55 IMPRESSION: 1. No visible acute displaced fracture. If there is persistent concern or the patient is unable to bear weight, consider CT. 2. Additional description as above. Reading Location: [facility] Discharge Plan Triage Chief Complaint: Fall ED [...] to 2 weeks follow-up reevaluation. Print Language: Pashto Disposition Disposition: Home, Self Care What to do if you have Problems For any increased pain, shortness of breath, bleeding, nausea or vomiting, chestpain, or any unexpected problems, contact your Primary Care Provider. Call [facility] ([phone]) or report to the closest Emergency Room. Call 911 if necessary. 07/06/24 1735 <Electronically signed by Hai Curry> Cosigner Signature (if applicable): CC: No Primary Care Physician ~ Signed [facility] Work Phone: [phone] NoteHNO ID: [id number] Author: Abhijit Bhatia APRN.BRIDGE INSTRUCTOR Service: ? Author Type: Nurse Practitioner Type: Progress Notes Filed: 02/10/2022 1:49 PM Note Text: This note was created using Nutanixriter. Subjective Michael Paiz is a 56 year old female here today for acute visit for complaints of swelling in tongue. Reports hx of angioedema. She has seen income tax adjuster in the past and labs were completed. [...] (Oral) Resp 18 Ht 165.1 cm (5' 5") Wt 119.7 kg (264 lb) LMP 06/14/2015 [...] normal. No congestion or rhinorrhea. Mouth/Throat: Lips: [place]. Mouth: Mucous membranes are moist. Tongue: No [...] normal. No respiratory distress. (more content not included)...[facility]10-24-2022 History of Present illness Narrative* Abhijit Bhatia, HENRIQUE.BRIDGE INSTRUCTOR - 02/10/2022 1:12 PM EDT This note was created using Nutanixriter. Subjective Michael Paiz is a 56 year old female here today for acute visit for complaints of swelling in tongue. Reports hx of angioedema. She has seen income tax adjuster in the past and labs were completed. [...] (Oral) Resp 18 Ht 165.1 cm (5' 5") Wt 119.7 kg (264 lb) LMP 06/14/2015 [id number]% BMI 43.93 kg/m Physical Exam Vitals and nursing note reviewed. Constitutional: General: She is not in acute distress. Appearance: Normal appearance. She is obese. She is not ill-appearing. HENT: Head: Normocephalic and atraumatic. Right Ear: Tympanic membrane, ear canal and external ear normal. Left Ear: Tympanic membrane, ear canal and external ear normal. Nose: Nose normal. No congestion or rhinorrhea. Mouth/Throat: Lips: [place]. Mouth: Mucous membranes are moist. Tongue: No [...] Abs Lymph 1.00 - 4.00 k/uL 2.64 [place]% % 4.9 Abs [place] 0.00 - 0.86 k/uL 0.37 Eosin% % [...] diagnosis) - unknown etiology, referral back to income tax adjuster for testing. Will check inflammation markers. If [...] like to schedule primary care doctor in [place] closer to home Abhijit Bhatia APRN.BRIDGE INSTRUCTOR documented in this encounterT[facility] HospitalEvalusaint [facility] noteNo assessment information availableWMercy Health West Hospital Work Phone: Evaluation note* Diagnosis Tongue swelling- Primary Swelling, mass, or lump in head and neck Screening for deficiency anemia Screening for other and unspecified deficiency anemia Elevated sed rate Elevated sedimentation rate [facility] Additional Instructions Follow-up with orthopedics and take Tylenol for your pain as needed.[facility] Work Phone: Hospital Discharge instructions Additional Instructions Left hip x-ray negative. Take pain medicine as prescribed. If symptoms do not improve after 1 to 2 weeks follow-up reevaluation.[facility] Work Phone: Hospital Discharge instructions Additional Instructions [...] care physician for further outpatient evaluation and management.[facility] Work Phone: Hospital Discharge instructionsAdditional Instructions Please continue to stretch and heat your low back to help reduce pain and speed healing. Take the prescribed medications as directed for symptom control. Return to the ER should you have any further concernsWMercy Health West Hospital Work Phone: Reason for referral (narrative)No reason for referral information availableWMercy Health West Hospital Work Phone: Summary Purpose Family History [...] No October 13, 2021 4:21pm Power of Supervisor Coremaker No October 13 4:21pm Advance Directive Response Recorded Date/ Time Advance Directives No May 29, 2017 11:22am Living Will No March 03, 2 022 5:01pm Power of Supervisor Coremaker No March 03, 2022 5:01pm Advance Directive Response Recorded Date/ Time Advance Directives No May 29, 2017 12:22pm Living Will No October 24, 2022 2 :53pm Power of Supervisor Coremaker No October 24, 2022 2:53pm Advance Directive Response Recorded Date/ Time Advance Directives No May 29, 2017 11:22am Living Will No April 08, 2 023 1:11pm Power of Supervisor Coremaker No April 08, 2023 1:11pm Advance Directive Response Recorded Date/ Time Living Will No July 06, 2024 4:44pm Do you have a Healthcare Power of Supervisor Coremaker? No July 06, 2024 4:44pm Living Will No June 21, 2024 4:05pm Do you have a Healthcare Power of Supervisor Coremaker? No June 21, 2024 4:05pm Advance Directives No May 29, 2017 12:22pm Advance Directive Response Recorded Date/ Time Living Will No July 06, 2024 4:44pm Do you have a Healthcare Power of Supervisor Coremaker? No July 06, 2024 4:44pm Do you have a Healthcare Power of Supervisor Coremaker? No August 31, 2024 9:22pm Living Will No June 21, 2024 4:05pm Do you have a Healthcare Power of Supervisor Coremaker? No June 21, 2024 4:05pm Advance Directives No May 29, 2017 12:22pm Advance Directive Response Recorded Date/ Time Living Will No July 06, 2024 4:44pm Do you have a Healthcare Power of Supervisor Coremaker? No July 06, 2024 4:44pm Do you have a Healthcare Power of Supervisor Coremaker? No August 31, 2024 9:22pm Do you have a Healthcare Power of Supervisor Coremaker? No October 27, 2024 6:05am Advance Directives No May 29, 2017 12:22pm [...] hip injury August 31, 2024 8:16p m Chief Complaint Admit Date FALL July 06, 2024 4:2 1pm hip injury August 31, 2024 8:16p m BACK October 27, 2024 6:04 am Reason for Referral Specialty Diagnoses / Procedures Referred By Contac t Referred To Contact [facility] Department Diagnoses Tongue swelling Elevated sed rate Procedures CONSULT TO ALLERGY/IMMUNOLOGY OFFICE/OUTPATIENT [facility] 60-74 MINUTES Abhijit Bhatia, SHELLFISH CHECKER.BRIDGE INSTRUCTOR [address] [place] [address] Madalyn Archer (Hist) [address] [place] [address] Referral ID Status Reason Start Date Expiration Date Visits Requested Visits Authorized [id number] Authorized PCP Requested Referral 2 02/10/2023 1 1 Additional Source Comments INFORMATION SOURCE (unrecogn ized section and content) DATE CREATED AUTHOR 05/27/2018 [facility] DATE CREATED AUTHOR AUTHOR'S ORGANIZ ATION 10/09/2018 [facility] DATE CREATED AUTHOR AUTHOR'S ORGANIZ ATION 07/19/2019 [facility] DATE CREATED AUTHOR AUTHOR'S ORGANIZ ATION 11/17/2020 [facility] ([place] DATE CREATED AUTHOR AUTHOR'S ORGANIZ ATION 02/12/2022 [facility] DATE CREATED AUTHOR AUTHOR'S ORGANIZ ATION 03/07/2024 [facility] DATE CREATED AUTHOR AUTHOR'S ORGANIZ ATION 11/04/[address] [facility] Goals (unrecognized section and content) Goals may [...] or prosecute any alcohol or drug abuse patient.[facility] Care Teams (unrecognized sec tion and content) Team Status: Active Member Role Status Dates No Primary Care Physician Family Provider Active No Primary Care Physician Primary Care Provider Active Team Status: Inactive Member Role Status Dates No Primary Care Physician Primary Care Provider Active Dr. Percy Tay , DO Emergency Provider Active Team Status: Inactive Member Role Status Dates No Primary Care Physician Primary Care Provider Active Dr. Angel Ernandez , Emergency Provider Active Team Status: Inactive Member [...] End: June 21, 2024 Dr. Percy Tay , DO Attending Provider Active Start: June 21, 2024 End: June 21, 2024 Dr. Percy Tay , Emergency Provider Active Start: June 21, 2024 End: June 21, 2024 Team Status: Inactive Member Role Status Dates No Primary Care Physician Primary Care Provider Active Start: July 06, 2024 End: July 06, 2024 Dr. Hai hWite , DO Referring Provider Active Start : July 06, 2024 End: July 06, 2024 Dr. Hai White , DO Emergency Provider Active Start : July [...] August 31, 2024 End: August 31, 2024 Team Status: Active Member Role/Relationship Status Dates No Primary Care Physician Primary Care Provider Active Team Status: Inactive Member Role/Relationship Status Dates No Primary Care Physician Primary [...] July 06, 2024 Team Status: Inactive Member Role/Relationship Status Dates No Primary Care Physician Primary Care Provider Active Start: August 31, 2024 End: August 31, 2024 Dr. Joe Naik DO Attending Provider Active Start: August 31, 2024 End: August 31, 2024 Dr. Joe Naik DO Emergency Provider Active Start: August 31, 2024 End: August 31, 2024 Team Status: Inactive Member Role/Relationship Status Dates No Primary Care Physician Primary Care Provider Active Start: October 27, 2024 End: October 27, 2024 Dr. Francisco Elizabeth DO Emergency Provider Active Start: October 27, 2024 End: October 27, 2024 FOR RECORDS PERTAINING TO PATIENTS WHO [...] BE BASED ON THE PRIMARY CLINICAL RECORDS. [employer] [facility]. provides no warranty or guarantee of the accuracy or completeness of information in this document.
== END | disposition home or self-care (01) ==
DX: M25.552 Pain in left hip (principal); F32.A Depression, unspecified
CPT/HCPCS: 36415; 73502; 80053; 84443; 85025

== ENCOUNTER → 2024-11-21 | Outpatient (CLI) | payer MEDICARE, SELFPAY ==
[2024-11-21 13:49] LABS: Cholesterol 212 mg/dL (<=200); Low Density Lipoprotein Calc. 59 mg/dL; Magnesium 2.3 mg/dL (1.5-2.2); Triglycerides 609 mg/dL; Uric Acid 6.6 mg/dL (2.6-6.0); Very Low Density Lipoprotein 122 mg/dL (5-40); Vitamin B12 360 pg/mL (180-914); Vitamin D,25 Hydroxy 13.8 ng/mL (30-100); cholesterol:hdl ratio screen 6.79
--- OUTSIDE RECORDS SUMMARY | 2024-11-21 17:55 | XMS RPT_ITS | CCD ---
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 17:41-0400 Systolic blood pressure 151 mm[Hg] No Primary Care Physician [facility] 07-06-2024 16:22-0400 Body height 162.56 cm No Primary Care Physician [facility] 07-06-2024 16:22-0400 Body mass index (BMI) [Ratio] 46.1 kg/m2 No Primary Care Physician [facility] 07-06-2024 16:22-0400 Body weight 121.9 kg No Primary Care Physician [facility] 06-21-2024 12:55-0500 Body mass index (BMI) [Ratio] 45.1 kg/m2 No Primary Care Physician [facility] 06-21-2024 12:55-0500 Body temperature 98.4 [degF] No Primary Care Physician [facility] 06-21-2024 12:55-0500 Body weight 119.29 kg No Primary Care Physician [facility] 06-21-2024 12:55-0500 Diastolic blood pressure 89 mm[Hg] No Primary Care Physician [facility] 06-21-2024 12:55-0500 Heart rate 85 /min No Primary Care Physician [facility] 06-21-2024 12:55-0500 Respiratory rate 16 /min No Primary Care Physician [facility] 06-21-2024 12:55-0500 SaO2% (BldA) [Mass fraction] 98 % No Primary Care Physician [facility] 06-21-2024 12:55-0500 Systolic blood pressure 156 mm[Hg] No Primary Care Physician [facility] 04-08-2023 15:49-0500 Body temperature 98 [degF] [facility] 04-08-2023 15:49-0500 Diastolic blood pressure 84 mm[Hg] [facility] 04-08-2023 15:49-0500 Heart rate 80 /min [facility] 04-08-2023 15:49-0500 Respiratory rate 16 /min [facility] 04-08-2023 15:49-0500 SaO2% (BldA) [Mass fraction] 96 % [facility] 04-08-2023 15:49-0500 Systolic blood pressure 158 mm[Hg] [facility] 04-08-2023 12:32-0500 Body mass index (BMI) [Ratio] 41.5 kg/m2 [facility] 04-08-2023 12:32-0500 Body weight 113.39 kg [facility] 04-08-2023 12:30-0500 Body height 165.1 cm [facility] 02-02-2023 19:03-0400 Body mass index (BMI) [Ratio] 40.9 kg/m2 [facility] 02-02-2023 19:03-0400 Body temperature 97.6 [degF] [facility] 02-02-2023 19:03-0400 Body weight 111.58 kg [facility] 02-02-2023 19:03-0400 Diastolic blood pressure 64 mm[Hg] [facility] 02-02-2023 19:03-0400 Heart rate 98 /min [facility] 02-02-2023 19:03-0400 Respiratory rate 16 /min [facility] 02-02-2023 19:03-0400 SaO2% (BldA) [Mass fraction] 99 % [facility] 02-02-2023 19:03-0400 Systolic blood pressure 149 mm[Hg] [facility] 10-24-2022 15:44-0400 Diastolic blood pressure 72 mm[Hg] [facility] 10-24-2022 15:44-0400 Respiratory rate 16 /min [facility] 10-24-2022 15:44-0400 Systolic blood pressure 116 mm[Hg] [facility] 10-24-2022 14:35-0400 Body height 165.1 cm [facility] 10-24-2022 14:35-0400 Body mass index (BMI) [Ratio] 40.6 kg/m2 [facility] 10-24-2022 14:35-0400 Body temperature 96.5 [degF] [facility] 10-24-2022 14:35-0400 Body weight 110.85 kg [facility] 10-24-2022 14:35-0400 Heart rate 91 /min [facility] 10-24-2022 14:35-0400 SaO2% (BldA) [Mass fraction] 96 % [facility] 03-03-2022 14:11-0500 Body height 165.1 cm [facility] Work Phone: 03-03-2022 14:11-0500 Body mass index (BMI) [Ratio] 43.9 kg/m2 [facility] Work Phone: 03-03-2022 14:11-0500 Body temperature 99.6 [degF] [facility] Work Phone: 03-03-2022 14:11-0500 Body weight 119.74 kg [facility] Work Phone: 03-03-2022 14:11-0500 Diastolic blood pressure 90 mm[Hg] [facility] Work Phone: 03-03-2022 14:11-0500 Heart rate 79 /min [facility] Work Phone: 03-03-2022 14:11-0500 Respiratory rate 18 /min [facility] Work Phone: 03-03-2022 14:11-0500 SaO2% (BldA) [Mass fraction] 96 % [facility] Work Phone: 03-03-2022 14:11-0500 Systolic blood pressure 140 mm[Hg] [facility] Work Phone: 02-10-2022 13:08-0400 Body height 165.1 cm Abhijit Bhatia APRN.CNP Work Phone: [facility] 02-10-2022 13:08-0400 Body temperature 98.2 [degF] Abhijit Ariel LABOR AND EMPLOYMENT [employer].PERFORMANCE IMPROVEMENT COORDINATOR Work Phone: [facility] 02-10-2022 13:08-0400 Body weight 119.75 kg Abhijit Ariel LABOR AND EMPLOYMENT [employer].PERFORMANCE IMPROVEMENT COORDINATOR Work Phone: [facility] 02-10-2022 13:08-0400 Diastolic blood pressure 70 mm[Hg] Abhijit Ariel LABOR AND EMPLOYMENT [employer].PERFORMANCE IMPROVEMENT COORDINATOR Work Phone: [facility] 02-10-2022 13:08-0400 Heart rate 93 /min Abhijit Ariel LABOR AND EMPLOYMENT [employer].PERFORMANCE IMPROVEMENT COORDINATOR Work Phone: [facility] 02-10-2022 13:08-0400 Respiratory rate 18 /min Abhijit Ariel LABOR AND EMPLOYMENT [employer].PERFORMANCE IMPROVEMENT COORDINATOR Work Phone: [facility] 02-10-2022 13:08-0400 SaO2% (BldA) [Mass fraction] 98 % Abhijit Ariel LABOR AND EMPLOYMENT [employer].PERFORMANCE IMPROVEMENT COORDINATOR Work Phone: [facility] 02-10-2022 13:08-0400 Systolic blood pressure 110 mm[Hg] Abhijit Ariel LABOR AND EMPLOYMENT [employer].PERFORMANCE IMPROVEMENT COORDINATOR Work Phone: [facility] 10-13-2021 16:07-0400 Body height 165.1 cm [facility] Work Phone: 10-13-2021 16:07-0400 Body mass index (BMI) [Ratio] 43.2 kg/m2 [facility] Work Phone: 10-13-2021 16:07-0400 Body temperature 97 [degF] [facility] Work Phone: 10-13-2021 16:07-0400 Body weight 117.93 kg [facility] Work Phone: 10-13-2021 16:07-0400 Diastolic blood pressure 104 mm[Hg] [facility] Work Phone: 10-13-2021 16:07-0400 Heart rate 84 /min [facility] Work Phone: 10-13-2021 16:07-0400 Respiratory rate 14 /min [facility] Work Phone: 10-13-2021 16:07-0400 SaO2% (BldA) [Mass fraction] 96 % [facility] Work Phone: 10-13-2021 16:07-0400 Systolic blood pressure 160 mm[Hg] [facility] Work Phone: 06-23-2021 06:35-0500 Diastolic blood pressure 88 mm[Hg] [facility] Work Phone: 06-23-2021 06:35-0500 Heart rate 84 /min [facility] Work Phone: 06-23-2021 06:35-0500 Respiratory rate 16 /min [facility] Work Phone: 06-23-2021 06:35-0500 Systolic blood pressure 148 mm[Hg] [facility] Work Phone: 06-23-2021 06:17-0500 SaO2% (BldA) [Mass fraction] 98 % [facility] Work Phone: 06-23-2021 04:13-0500 Body mass index (BMI) [Ratio] 44.4 kg/m2 [facility] Work Phone: 06-23-2021 04:13-0500 Body temperature 98.7 [degF] [facility] Work Phone: 06-23-2021 04:13-0500 Body weight 121 kg [facility] Work Phone: Encounters Encounter Date Encounter Type Care Provider Facility Start: 11-10-2024 End: 11-10-2024 ambulatory No Primary Care Physician [facility] Start: 11-10-2024 End: 11-10-2024 Patient encounter procedure Zebulun Beam MACHINE STRAP BUCKLER-C [facility] Start: 11-10-2024 End: 11-10-2024 ambulatory Zebulun Beam Facility:[facility] Start: 10-27-2024 End: 10-27-2024 Emergency department patient [...] Emergency department patient visit PHYSICIAN NO FAMILY Facility:[facility] Start: 02-17-2024 ambulatory Ricardo Vazquez Facility:[facility] Start: 11-23-2023 End: 11-24-2023 ambulatory Dong Roberta Facility:[facility] Start: 04-08-2023 End: 04-08-2023 Emergency department patient visit [facility] Work Phone: Start: 02-02-2023 End: 02-02-2023 Emergency department patient visit [facility] Work Phone: Start: 10-24-2022 End: 10-24-2022 Emergency department patient visit [facility] Work Phone: Start: 03-03-2022 End: 03-03-2022 Emergency department patient visit [facility] Start: 02-10-2022 End: 02-11-2022 ambulatory ABHIJIT BHATIA Facility:[facility] Start: 02-10-2022 End: 02-10-2022 Patient encounter procedure Abhijit Bhatia LABOR AND EMPLOYMENT [employer]PERFORMANCE IMPROVEMENT COORDINATOR Work Phone: [facility] Comment on above: Tongue swelling (Ratna gail Dx); Screening for deficiency anemia; Elevated sed rate Start: 10-13-2021 End: 10-13-2021 Emergency department patient visit [facility] Start: 06-23-2021 End: 06-23-2021 Emergency department patient visit [facility] Start: 05-15-2018 End: 05-15-2018 Emergency department patient visit [facility] Start: 03-16-2018 End: 03-16-2018 Emergency department patient visit [facility] Procedures Date Procedure Procedure Detail Performing Clinician Start: 11-10-2024 Plain x-ray of pelvi s and lower extremity No Primary Care Physician Start: 10-27-2024 Urnls dip stick/tabl et reagent [...] Date Care Activity Detail Author Start: 10-27-2024 [facility] Start: 08-31-2024 [facility] Start: 07-06-2024 [facility] Start: 06-21-2024 [facility] Start: 02-10-2023 COVID-19 VACCINE (#1) COVID-19 VACCI NE (#1) [facility] Comment on above: Postponed from 05/03 (Declined at this time) Start: 02-02-2023 [facility] Start: 02-02-2023 [facility] Start: 10-17-2022 Influenza vaccination INFLUENZA (#1) [facility] Comment on above: Postponed from 12/19 (Declined at this time) Start: 03-03-2022 [facility] Work Phone: Start: 02-10-2022 End: 04-12-2022 C reactive protein [Mass/volume] in Serum or Plasma C-REACTIVE PROTEIN (CRP) Lab Routine Elevated sed rate Expected: 02/10/2022, Expires: 04/12/2022 [facility] Work Phone: Comment on above: Expected: 02/10/2022 , Expires: 04/12/2022 Start: 02-10-2022 End: 04-12-2022 CBC panel - Blood by Automated count CBC Lab Routine Tongue swelling Expected: 02/10/2022, Expires: 04/12/2022 [facility] Work Phone: Comment on above: Expected: 02/10/2022 , Expires: 04/12/2022 Start: 02-10-2022 End: 04-12-2022 Comprehensive metabolic 2000 panel - Serum or Plasma COMP METABOLIC PANEL Lab Routine Screening for deficiency anemia Expected: 02/10/2022, Expires: 04/12/2022 [facility] Work Phone: Comment on above: Expected: 02/10/2022 , Expires: 04/12/2022 Start: 02-10-2022 End: 04-12-2022 Erythrocyte sedimentation rate SED RATE WESTERGREN Lab Routine Elevated sed rate Expected: 02/10/2022, Expires: 04/12/2022 [facility] Work Phone: Comment on above: Expected: 02/10/2022 , Expires: 04/12/2022 Start: 04-20-2021 DEPRESSION ASSESSMENT DEPRESSION ASS ESSMENT [facility] Start: 07-15-2018 DIABETES SCREEN DIABETES SCREEN [facility] Start: 10-31-2013 SHINGRIX VACCINE (1 of 2) SHINGRIX VACCINE (1 of 2) [facility] Start: 10-31-2008 COLOGUARD (FIT-DNA) COLOGUARD (FIT-D NA) [facility] Start: 10-31-2008 Colonoscopy COLONOSCOPY [facility] Start: 10-31-2008 COLORECTAL CANCER SCREENING COLORECTAL CANCER SCREENING [facility] Start: 10-31-[address] COLONOGRAPHY [facility] Start: 10-31-2008 FECAL OCCULT BLOOD FECAL OCCULT BLOO D [facility] Start: 10-31-2008 LIPID SCREEN LIPID SCREEN [facility] Start: 10-31-2008 SIGMOIDOSCOPY SIGMOIDOSCOPY [facility] Start: 2003 Mammography MAMMOGRAM [facility] Start: 10-31-1993 HPV TESTING HPV TESTING [facility] Start: 10-31-1984 PAP TESTING PAP TESTING [facility] Start: 10-31-1982 Urine microalbumin profile DTAP,TDAP,TD (1 - Tdap) [facility] Start: 10-31-1981 HEPATITIS C SCREENING HEPATITIS C SC REENING [facility] Start: 10-31-1981 HIV SCREENING HIV SCREENING [facility] Start: 1965 HEPATITIS B (1 of 3 - 3-dose series) HEPATITIS B (1 of 3 - 3-dose series) [facility] Patient Education [facility] Work Phone: Patient referral [facility] Work Phone: Payers Date Payer Category Payer Unknown [id number] 2024 Unknown [id number] 2023 Self-pay [id number] 2017 Medicare [facility] MEDICARE [facility] MEDICARE [id number] 2017-Present [phone] [address] [place] [address] Medicare [id number] 2015 Medicaid [facility] MEDICAID [employer] [facility] MEDICAID [id number] 2015-Present [phone] [address] [place] [address] Medicaid [id number] 2015 Unknown [id number] Medicare [id number] Unknown [id number] Unknown [id number] Unknown [id number] Unknown [id number] Unknown [id number] Unknown [id number] Unknown [id number] Unknown [id number] Social History Date Type Detail Facility Start: 10-13-2021 End: 04-08-2023 Tobacco smoking status CAIS Unknown if ever smoked [facility] Start: 06-13-2019 None [facility] Start: 08-09-2018 Alone [facility] Start: 08-31-2020 Non-smoker [facility] Start: 1965 Sex Assigned At Female [facility] Start: 08-28-2015 End: 10-27-2024 Tobacco smoking status CAIS Never smoked tobacco [facility] Start: 08-28-2015 Tobacco use and exposure Smokeless tobacco non-user [facility] Start: 02-10-2022 Alcohol intake Current non-dr composition roofer of alcohol (finding) [facility] Start: 08-28-2015 Tobacco Comment Smokes marijua na socially [facility] Start: 1965 Sex Assigned At Not on file C [facility] Start: 01-31-2022 End: 02-10-2022 Exposure to SARS-CoV-2 (event) Not sure [facility] Start: 07-06-2024 Sex Female (finding) [facility] Mental Status Date Assessment Result Facility 02-02-2023 Cognitive function Level Of Cons ciousness Awake;Alert;Appropriate;Follow s Commands [facility] Work Phone: 06-23-2021 Cognitive function Level Of Cons ciousness Awake;Alert;Appropriate [facility] Work Phone: Clinical Notes 02-10-2022 to 11-12-2024 Note Date & Type Note Facility 11-12-2024 Radiology Diagnostic study note [facility] Imaging Services [address] [place] [address] HIP, UNI W/ Pelvis 2-3 Views MR#: [id number] Acct: [id number] Name: MICHAEL PAIZ Rep #: [id number] : 1965 F 59 From: Bettie Adair MD PCP: Amadou Carrillo [facility] MACHINE STRAP BUCKLERSuzieC Status: REG CLI Study:HIP, UNI W/ Pelvis 2-3 Views Date of Ex am: 11/10/24 Exam# [id number] Ordering Dr: Mason Carrillo [facility] MACHINE STRAP BUCKLERSuzieC PROCEDURE: HIP, UNI W/ PELVIS 2-3 VIEWS 11/10/2024 REASON FOR EXAM: PAIN IN LEFT HIP TECHNIQUE: HIP, UNI W/ PELVIS 2-3 VIEWS COMPARISON: 08/31/2024 FINDINGS: lower lumbar spine degeneration. Intact pelvic ring. Mild right hip osteoarthritis. Moderate left hip osteoarthritis with joint space narrowing, subchondral cysts and osteophytes. Findings are similar to the previous examination. No acute bone or soft tissue pathology. RAD/HIP, UNI W/ Pelvis 2-3 Views IMPRESSION: Mrnd-kqolqhc-trxw-right hip osteoarthritis. Reading Location: [facility] CC: Amadou [facility] MACHINE STRAP BUCKLER-C Lorena ~ Oil Extractor: Signed [facility] 08-31-2024 Discharge summary [facility] 08-31-2024 Radiology Diagnostic study note [facility] Imaging Services [address] [place] [address] HIP, UNI W/ Pelvis 2-3 Views MR#: [id number] Acct: [id number] Name: MICHAEL PAIZ Rep #: [id number] : 1965 F 58 From: Carlyn Ren MD PCP: Care Physician,No Primary Status: REG ER Study:HIP, UNI W/ Pelvis 2-3 Views Date of Ex am: 08/31/24 Exam# [id number] Ordering Dr: Diogo Naik DO PROCEDURE: HIP, [...] DO; No Primary Care Physician ~ Oil Extractor: Signed [facility] 08-31-2024 Discharge summary Note Date/Time August 31, 2024 11:22pm [facility] Medical Records Department [address] [place] [id number] Emergency Department Summary 08/31/24 MR#: [id number] Acct: [id number] Name: MICHAEL PAIZ Rep #:[id number] : 1965 58 From: Joe Alvarez PCP: Care Physician,No Primary Status :REG ER Location: ED HPI History of Present Illness Chief Complaint: Lower Extremity Injury [facility] Medical History Marijuana smoker Left ventricular [...] Ox 97 Oxygen Delivery Method Room Air [facility] Narrative Medical decision making narrative: HISTORY OF [...] Discharge home This note was generated with Kobo dictation software. It may contain incorrectwords, spelling, and punctuation that were not noted in review of the chart prior to signing. Radiography Diagnostic Testing: Clinical Impression(s) from Imaging Studies Hip/Pelvis X-Ray 08/31/24 21:45 IMPRESSION: See above [facility] T[facility] Chief Complaint: Lower Extremity [...] Primary [Primary Care Provider] - Print Language: Guinean What to do if you have Problems For any increased pain, shortness of breath, bleeding, nausea or vomiting, chestpain, or any unexpected problems, contact your Primary Care Provider. Call [facility] ([phone]) or report to the closest Emergency Room. Call 911 if necessary. 08/31/242321 <Electronically signed by Joe Naik DO> Cosigner Signature (if applicable): CC: No Primary Care Physician ~ Signed [facility] Work Phone: 1(160) 903-374903-19-2025 Discharge summary [facility] Medical Records Department [address] [place] [place] [address] Emergency Department Summary 07/06/24 MR#: [id number] Acct: [id number] Name: MICHAEL PAIZ Rep #:[id number] : 1965 58 From: Hai Curry PCP: [...] and in however is able to ambulate. [place] provided. X-ray obtained for further evaluation. 1735: [...] clinician: N/A This note was generated with Kobo dictation software. It may contain incorrectwords, spelling, and punctuation that were not noted in checking the note beforesigning. Radiography Diagnostic Testing: Clinical Impression(s) from Imaging Studies Hip/Pelvis X-Ray 07/06/24 16:55 IMPRESSION: 1. No visible acute displaced fracture. If there is persistent concern or the patient is unable to bear weight, consider CT. 2. Additional description as above. Reading Location: [id number] Discharge Plan Triage Chief Complaint: Fall ED [...] to 2 weeks follow-up reevaluation. Print Language: Guinean Disposition Disposition: Home, Self Care What to do if you have Problems For any increased pain, shortness of breath, bleeding, nausea or vomiting, chestpain, or any unexpected problems, contact your Primary Care Provider. Call [facility] ([phone]) or report tothe closest Emergency Room. Call 911 if necessary. 07/06/24 0287 Cosigner Signature (if applicable): CC: No Primary Care Physician ~ Signed [facility]03-19-2025 Radiology Diagnostic study note [facility] Imaging Services [address] [place] [address] HIP, UNI W/ Pelvis 2-3 Views MR#: [id number] Acct: [id number] Name: MICHAEL PAIZ Rep #: [id number] : 1965 F 58 From: Keshia Almonte MD PCP: Care Physician,No Primary Status: REG ER Study:HIP, UNI W/ Pelvis 2-3 Views Date of Ex am: 07/06/24 Exam# [id number] Ordering Dr: Hai White DO PROCEDURE: HIP, UNI W/ PELVIS 2-3 VIEWS (RAD), 07/06/2024 REASON FOR EXAM: INJURY TECHNIQUE: AP [...] 2. Additional description as above. Reading Location: [id number] CC: Dr. Hai White DO; No Primary Care Physician ~ Oil Extractor: Signed [facility]03-19-2025 Discharge summary Author Hai White [facility] Note Date/Time July 06, 2024 5:3 8pm [facility] Medical Records Department [address] [place] [address] Emergency Department Summary 07/06/24 MR#: [id number] Acct: [id number] Name: MICHAEL PAIZ Rep #:[id number] : 1965 58 From: Hai Curry PCP: [...] and in however is able to ambulate. [place] provided. X-ray obtained for further evaluation. 1735: [...] clinician: N/A This note was generated with Kobo dictation software. It may contain incorrectwords, spelling, and punctuation that were not noted in checking the note beforesigning. Radiography Diagnostic Testing: Clinical Impression(s) from Imaging Studies Hip/Pelvis X-Ray 07/06/24 16:55 IMPRESSION: 1. No visible acute displaced fracture. If there is persistent concern or the patient is unable to bear weight, consider CT. 2. Additional description as above. Reading Location: [facility] Discharge Plan Triage Chief Complaint: Fall ED [...] to 2 weeks follow-up reevaluation. Print Language: Guinean Disposition Disposition: Home, Self Care What to do if you have Problems For any increased pain, shortness of breath, bleeding, nausea or vomiting, chestpain, or any unexpected problems, contact your Primary Care Provider. Call [facility] ([phone]) or report to the closest Emergency Room. Call 911 if necessary. 07/06/24 8044 <Electronically signed by Hai Curry> Cosigner Signature (if applicable): CC: No Primary Care Physician ~ Signed [facility] Work Phone: 1(236) 905-496910-24-2022 NoteHNO ID: [id number] Author: Abhijit Bhatia APRN.PERFORMANCE IMPROVEMENT COORDINATOR Service: ? Author Type: Nurse Practitioner Type: Progress Notes Filed: 02/10/2022 1:49 PM Note Text: This note was created using [email or web address]. Subjective Michael Paiz is a 56 year old female here today for acute visit for complaints of swelling in tongue. Reports hx of angioedema. She has seen abstract clerk in the past and labs were completed. [...] normal. No congestion or rhinorrhea. Mouth/Throat: Lips: [place]. Mouth: Mucous membranes are moist. Tongue: No [...] normal. No respiratory distress. (more content not included)...[facility]10-24-2022 History of Present illness Narrative* Abhijit Bhatia APRN.PERFORMANCE IMPROVEMENT COORDINATOR - 02/10/2022 1:12 PM EDT This note was created using [email or web address]. Subjective Michael Paiz is a 56 year old female here today for acute visit for complaints of swelling in tongue. Reports hx of angioedema. She has seen abstract clerk in the past and labs were completed. [...] Wt 119.7 kg (264 lb) LMP 06/14/2015 OdL174% BMI 43.93 kg/m Physical Exam Vitals and nursing note reviewed. Constitutional: General: She is not in acute distress. Appearance: Normal appearance. She is obese. She is not ill-appearing. HENT: Head: Normocephalic and atraumatic. Right Ear: Tympanic membrane, ear canal and external ear normal. Left Ear: Tympanic membrane, ear canal and external ear normal. Nose: Nose normal. No congestion or rhinorrhea. Mouth/Throat: Lips: [place]. Mouth: Mucous membranes are moist. Tongue: No [...] Abs Lymph 1.00 - 4.00 k/uL 2.64 [place]% % 4.9 Abs [place] 0.00 - 0.86 k/uL 0.37 Eosin% % [...] diagnosis) - unknown etiology, referral back to abstract clerk for testing. Will check inflammation markers. If [...] like to schedule primary care doctor in [place] closer to home Abhijit Bhatia APRN.PERFORMANCE IMPROVEMENT COORDINATOR documented in this encounterHocking Valley Community HospitalEvalunemours foundation noteNo assessment information availableWTrinity Health System Work Phone: Evaluation note* Diagnosis Tongue swelling- Primary Swelling, mass, or lump in head and neck Screening for deficiency anemia Screening for other and unspecified deficiency anemia Elevated sed rate Elevated sedimentation rate [facility] Additional Instructions Follow-up with orthopedics and take Tylenol for your pain as needed.[facility] Work Phone: Hospital Discharge instructions Additional Instructions Left hip x-ray negative. Take pain medicine as prescribed. If symptoms do not improve after 1 to 2 weeks follow-up reevaluation.[facility] Work Phone: Hospital Discharge instructions Additional [...] care physician for further outpatient evaluation and management.[facility] Work Phone: Hospital Discharge instructionsAdditional Instructions Please continue to stretch and heat your low back to help reduce pain and speed healing. Take the prescribed medications as directed for symptom control. Return to the ER should you have any further concernsWTrinity Health System Work Phone: Reason for referral (narrative)No reason for referral information availableWTrinity Health System Work Phone: Summary Purpose Family History No [...] No October 13, 2021 4:21pm Power of Commercial Loan Closer No October 13 4:21pm Advance Directive Response Recorded Date/ Time Advance Directives No May 29, 2017 11:22am Living Will No March 03, 2 022 5:01pm Power of Commercial Loan Closer No March 03, 2022 5:01pm Advance Directive Response Recorded Date/ Time Advance Directives No May 29, 2017 12:22pm Living Will No October 24, 2022 2 :53pm Power of Commercial Loan Closer No October 24, 2022 2:53pm Advance Directive Response Recorded Date/ Time Advance Directives No May 29, 2017 11:22am Living Will No April 08, 2 023 1:11pm Power of Commercial Loan Closer No April 08, 2023 1:11pm Advance Directive Response Recorded Date/ Time Living Will No July 06, 2024 4:44pm Do you have a Healthcare Power of Commercial Loan Closer? No July 06, 2024 4:44pm Living Will No June 21, 2024 4:05pm Do you have a Healthcare Power of Commercial Loan Closer? No June 21, 2024 4:05pm Advance Directives No May 29, 2017 12:22pm Advance Directive Response Recorded Date/ Time Living Will No July 06, 2024 4:44pm Do you have a Healthcare Power of Commercial Loan Closer? No July 06, 2024 4:44pm Do you have a Healthcare Power of Commercial Loan Closer? No August 31, 2024 9:22pm Living Will No June 21, 2024 4:05pm Do you have a Healthcare Power of Commercial Loan Closer? No June 21, 2024 4:05pm Advance Directives No May 29, 2017 12:22pm Advance Directive Response Recorded Date/ Time Living Will No July 06, 2024 4:44pm Do you have a Healthcare Power of Commercial Loan Closer? No July 06, 2024 4:44pm Do you have a Healthcare Power of Commercial Loan Closer? No August 31, 2024 9:22pm Do you have a Healthcare Power of Commercial Loan Closer? No October 27, 2024 6:05am Advance Directives No May 29, 2017 12:22pm Advance Directive Response Recorded Date/ Time Do you have a Healthcare Power of Commercial Loan Closer? No August 31, 2024 9:22pm Do you have a Healthcare Power of Commercial Loan Closer? 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 DATE CREATED AUTHOR AUTHOR'S ORGANIZ ATION 10/09/2018 [facility] DATE CREATED AUTHOR AUTHOR'S ORGANIZ ATION 07/19/2019 [facility] DATE CREATED AUTHOR AUTHOR'S ORGANIZ ATION 11/17/2020 [facility] ([place]) DATE CREATED AUTHOR AUTHOR'S ORGANIZ ATION 02/12/2022 [facility] DATE CREATED AUTHOR AUTHOR'S ORGANIZ ATION 03/07/2024 [facility] DATE CREATED AUTHOR AUTHOR'S ORGANIZ ATION 11/17/2024 [facility] Goals (unrecognized section and content) Goals [...] or prosecute any alcohol or drug abuse patient.[facility] Care Teams (unrecognized sec tion and content) Team Status: Active Member Role Status Dates No Primary Care Physician Family Provider Active No Primary Care Physician Primary Care Provider Active Team Status: Inactive Member Role Status Dates No Primary Care Physician Primary Care Provider Active Dr. Percy Tay , Emergency Provider Active Team Status: Inactive [...] October 27, 2024 End: October 27, 2024 Team Status: Active Member Role/Relationship Status Dates Zebulun Beam VSC, MACHINE STRAP BUCKLER-C Primary Care Provider Active Team Status: Inactive [...] October 27, 2024 Dr. Francisco Elizabeth DO Attending Provider Active Start: October 27, 2024 End: October 27, 2024 Dr. Francisco Elizabeth DO Emergency Provider Active Start: October 27, 2024 End: October 27, 2024 Team Status: Inactive Member Role/Relationship Status Dates Zebulun Beam VSC, MACHINE [employer] BUCKLER-C Primary Care Provider Active Start: November 10, 2024 End: November 10, 2024 Amadou SHANE NP-Dipak Attending Provider Active Start: November 10, 2024 End: November 10, 2024 Amadou SHANE NP-C Referring Provider Active Start: November 10, 2024 End: November 10, 2024 FOR RECORDS PERTAINING TO PATIENTS WHO [...] BE BASED ON THE PRIMARY CLINICAL RECORDS. [facility], [facility]. provides no warranty or guarantee of the accuracy or completeness of information in this document.
== END | disposition home or self-care (01) ==
LOC: VSLAB 09:20
PROVIDERS: Visit Provider Family Medicine
DX: E78.2 Mixed hyperlipidemia (principal); E55.9 Vitamin D deficiency, unspecified; R42 Dizziness and giddiness; M10.9 Gout, unspecified
CPT/HCPCS: 36415; 80061; 82306; 82607; 83036; 83735; 84550